=== PATIENT | male | born 1940 | race Caucasian/White ===

== ENCOUNTER 2017-10-31 16:54 | Inpatient (IN) ==
[2017-10-31 17:49] LABS: Basophils % 0.2 %; Eosinophils % 0.4 %; Hematocrit 35.8 % (37.5-50.1); Hemoglobin 11.6 g/dL (12.9-16.9); Immature Granulocytes % 0.4 % (0-4); Lymphocytes # 1.2 K/mcL (0.6-4.6); Lymphocytes % 11.6 %; Mean Corpuscular HGB Conc 32.4 g/dL (31.6-35.5); Mean Corpuscular Hemoglobin 27.9 pg (28.0-33.3); Mean Corpuscular Volume 86.1 fL (83.0-100.0); Mean Platelet Volume 10.2 fL (9.4-12.4); Monocytes # 0.6 K/mcL (0.0-1.3); Monocytes % 5.7 %; Neutrophils # 8.2 K/mcL (1.6-8.9); Platelet Count 332 K/mcL (140-400); Red Blood Count 4.16 M/mcL (4.19-5.50); Red Cell Distribution Width 14.3 % (11.5-14.5); Segmented Neutrophils % 81.7 %
[2017-10-31 17:56] LABS: INR 1.1; Prothrombin Time 12.2 Seconds (9.4-12.1)
[2017-10-31 17:59] LABS: Activated Partial Thrombo Time 27.5 Seconds (26.0-36.0)
[2017-10-31 18:04] LABS: Alanine Aminotransferase 9 Units/L (7-52); Albumin 2.8 g/dL (3.5-5.7); Albumin/Globulin Ratio 0.8 (1.1-2.2); Alkaline Phosphatase 48 Units/L (34-104); Aspartate Amino Transferase 11 Units/L (13-39); BUN/Creatinine Ratio 18 (6-26); Bilirubin,Total 0.5 mg/dL (0.3-1.0); Blood Urea Nitrogen 16 mg/dL (8-23); C-Reactive Protein 126 mg/L (Less than 10); Calcium 8.4 mg/dL (8.6-10.3); Carbon Dioxide 33 mEq/L (23-29); Chloride 97 mEq/L (98-107); Globulin 3.7 g/dL (2.4-3.5); Glucose 222 mg/dL (70-105); Osmolality,Calculated 286 (280-300); Potassium 4.2 mEq/L (3.5-5.1); Sodium 134 mEq/L (136-145); Total Protein 6.5 g/dL (6.4-8.9); eGFR For African Americans > 60 (> 60); eGFR For Non-African Americans > 60 (> 60)
[2017-10-31] MEDS ORDERED: 0.9 % Sodium Chloride 1,000 ML IVC ONE (18:34)
[2017-10-31] MEDS ORDERED: Piperacillin/Tazobactam 3.375 GM in Water for inj. (sterile) 20 ML IVP ONE (18:34)
--- NOTE | 2017-10-31 18:40 | Emergency Department Note ---
Disposition Clinical Impression: Diabetic foot ulcer Qualifiers: Diabetic foot ulcer location: heel Diabetes mellitus type: other specified ( including TANYA) Laterality: left Non-pressure ulcer stage: unspecified non- pressure ulcer stage Qualified Code(s): E13.621 - Other specified diabetes mellitus with foot ulcer Disposition: Still a Patient Condition: Fair Referrals: NONE,PCP [Primary Care Provider] - Saskia Joseph [Family Provider] - Forms: ED Satisfaction Letter Wound/Laceration HPI - General Chief Complaint: ED Wound/Laceration Stated Complaint: large left heel wound Time Seen by Provider: 10/31/17 17:58 Source: patient Mode of arrival: private vehicle Limitations: no limitations Nursing Notes Reviewed: Yes Vital Signs Reviewed: Yes - History of Present Illness HPI Narrative: 76-year-old male history of dementia and diabetes presents for evaluation due to concerns of left foot ulcer. Patient states it has not been there for a long however it is unclear exactly how long. Patient was carried in by his daughter who he has been staying with him recently. The daughter is worried that the patient cannot take care of himself. Patient is not ambulatory on that left foot. Daughter denies any fevers per the patient. Patient denies any complaints. Denies abdominal pain. No chest pain or shortness of breath. Family at bedside stated the patient does not have a living will. - Related Data Previous Rx's Medication Instructions Recorded Aspirin 81 mg PO DAILY #30 tab.chew 07/10/17 Ipratropium/Albuterol Neb [Duoneb] 3 ml IH [id number] PRN #30 inhsol 07/10/17 Lisinopril [Zestril] 5 mg PO DAILY #30 tablet 07/10/17 Metoprolol [Lopressor] 25 mg PO BID #60 tablet 07/10/17 Simvastatin [Zocor] 20 mg PO HS #30 tablet 07/10/17 Allergies Allergy/AdvReac Type Severity Reaction Status Date / Time No Known Allergies Allergy Verified 10/31/17 16:58 All systems ED: reviewed and negative except as stated. Constitutional: Denies: fever Cardiovascular: Denies: chest pain Respiratory: Denies: cough, dyspnea Gastrointestinal: Denies: abdominal pain, nausea, vomiting Past Medical History - Past Medical History Source: patient Medical history: Reports: COPD, dementia, diabetes, hypertension, other Psychiatric history: Reports: no psych history - Social History Smoking Status: Current some day smoker Smokeless Tobacco Status: Yes (Chew) Alcohol use: Reports: none Drug use: Reports: none Physical Exam - General Limitations: no limitations General appearance: alert, in no apparent distress, cachectic - Head Head exam: atraumatic, normocephalic - Eye Eye exam: Present: normal appearance, PERRL, EOMI - ENT ENT exam: normal exam, mucous membranes moist - Neck Neck exam: Present: normal inspection - Chest Chest inspection: Present: normal inspection, symmetric chest wall rise - Respiratory Respiratory exam: Present: other (Diffusely diminished) - Cardiovascular Cardiovascular exam: Present: regular rate, normal rhythm - Abdominal Exam Abdominal exam: Present: soft, Non-Tender - Expanded Lower Extremity Exam Ankle exam: Present: other (She has a foul-smelling purulent drainage on the dorsum of the left ankle. Likely Pseudomonas) - Neurological Exam Neurological exam: Present: alert - Skin Skin exam: Present: warm, dry, intact Course Course Narrative: Patient seen and examined. Patient does have likely Pseudomonas ulcer in the left foot. Social work has been involved and recommends the patient to be placed. Patient likely has osteomyelitis of the foot. Patient will require IV antibiotics and admission likely inpatient podiatry consult. Vital Signs Temperature 98.1 F 10/31/17 16:56 Pulse Rate 100 10/31/17 16:56 Respiratory Rate 20 10/31/17 16:56 Blood Pressure 106/62 10/31/17 16:56 O2 Sat by Pulse Oximetry 94 10/31/17 16:56 Temperature 98.1 F 10/31/17 16:56 Pulse Rate 100 10/31/17 16:56 Respiratory Rate 20 10/31/17 16:56 Blood Pressure 106/62 10/31/17 16:56 O2 Sat by Pulse Oximetry 94 10/31/17 16:56 Oxygen Delivery Oxygen Delivery Room Air Wound/Laceration - MDM Narrative Medical decision making narrative: 76 year old male presents for evaluation of left foot ulcer. Patient presents in the care of the family. Family is concerned the patient cannot take care of himself. Patient does have obvious drainage of the ulcer. Likely osteomyelitis with pseudomonas. Patient started on vancomycin and Zosyn. Patient will be admitted to hospitalist service. At the time of this dictation the patient was signed out tonight provider pending radiology results. Patient denies any pain. Patient did get wound cultures obtained of the left heal ulcer. - Lab Data Lab results reviewed: Yes I reviewed the patient's lab results. Result diagrams: 10/31/17 17:22 10/31/17 17:22 Lab Results 10/31/17 10/31/17 10/31/17 Range/Units 17:22 17:22 17:22 WBC 10.0 (4.3-11.1) K/mcL RBC 4.16 L (4.19-5.50) M/mcL Hgb 11.6 L (12.9-16.9) g/dL Hct 35.8 L (37.5-50.1) % MCV 86.1 (83.0-100.0) fL MCH 27.9 L (28.0-33.3) pg MCHC 32.4 (31.6-35.5) g/dL RDW 14.3 (11.5-14.5) % Plt Count 332 (140-400) K/mcL MPV 10.2 (9.4-12.4) fL Immature Gran % 0.4 (0-4) % Seg Neutrophils % 81.7 % Lymphocytes % 11.6 % Monocytes % 5.7 % Eosinophils % 0.4 % Basophils % 0.2 % Neutrophils # 8.2 (1.6-8.9) K/mcL Lymphocytes # 1.2 (0.6-4.6) K/mcL Monocytes # 0.6 (0.0-1.3) K/mcL Eosinophils # 0.0 (0.0-0.6) K/mcL Basophils # 0.0 (0.0-0.2) K/mcL ESR 57 H (0-10) mm/hr PT 12.2 H (9.4-12.1) Seconds INR 1.1 APTT 27.5 (26.0-36.0) Seconds Sodium (136-145) mEq/L Potassium (3.5-5.1) mEq/L Chloride (98-107) mEq/L Carbon Dioxide (23-29) mEq/L BUN (8-23) mg/dL Creatinine (0.70-1.30) mg/dL Est GFR ( Amer) (> 60) Est GFR (Non-Af Amer) (> 60) BUN/Creatinine Ratio (6-26) Glucose (70-105) mg/dL Calculated Osmolality (280-300) Lactic Acid (0.5-2.2) mmol/L Calcium (8.6-10.3) mg/dL Total Bilirubin (0.3-1.0) mg/dL AST (13-39) Units/L ALT (7-52) Units/L Alkaline Phosphatase (34-104) Units/L C-Reactive Protein (Less than 10) mg/L Serum Total Protein (6.4-8.9) g/dL Albumin (3.5-5.7) g/dL Globulin (2.4-3.5) g/dL Albumin/Globulin Ratio (1.1-2.2) 10/31/17 10/31/17 Range/Units 17:22 17:22 WBC (4.3-11.1) K/mcL RBC (4.19-5.50) M/mcL Hgb (12.9-16.9) g/dL Hct (37.5-50.1) % MCV (83.0-100.0) fL MCH (28.0-33.3) pg MCHC (31.6-35.5) g/dL RDW (11.5-14.5) % Plt Count (140-400) K/mcL MPV (9.4-12.4) fL Immature Gran % (0-4) % Seg Neutrophils % % Lymphocytes % % Monocytes % % Eosinophils % % Basophils % % Neutrophils # (1.6-8.9) K/mcL Lymphocytes # (0.6-4.6) K/mcL Monocytes # (0.0-1.3) K/mcL Eosinophils # (0.0-0.6) K/mcL Basophils # (0.0-0.2) K/mcL ESR (0-10) mm/hr PT (9.4-12.1) Seconds INR APTT (26.0-36.0) Seconds Sodium 134 L (136-145) mEq/L Potassium 4.2 (3.5-5.1) mEq/L Chloride 97 L (98-107) mEq/L Carbon Dioxide 33 H (23-29) mEq/L BUN 16 (8-23) mg/dL Creatinine 0.90 (0.70-1.30) mg/dL Est GFR ( Amer) > 60 (> 60) Est GFR (Non-Af Amer) > 60 (> 60) BUN/Creatinine Ratio 18 (6-26) Glucose 222 H (70-105) mg/dL Calculated Osmolality 286 (280-300) Lactic Acid 1.4 (0.5-2.2) mmol/L Calcium 8.4 L (8.6-10.3) mg/dL Total Bilirubin 0.5 (0.3-1.0) mg/dL AST 11 L (13-39) Units/L ALT 9 (7-52) Units/L Alkaline Phosphatase 48 (34-104) Units/L C-Reactive Protein 126 H (Less than 10) mg/L Serum Total Protein 6.5 (6.4-8.9) g/dL Albumin 2.8 L (3.5-5.7) g/dL Globulin 3.7 H (2.4-3.5) g/dL Albumin/Globulin Ratio 0.8 L (1.1-2.2) S.Pablo.Pauline - Osmany Situation: Demographics Background: Presenting Complaint Assessment: Vital Signs, Course and respsone to treatment, Patient/Family Expectation Recommendation: Barrier(s) to disposition, Recommendation based on pending studies, treatments, or consults S.BNadira Report Given to: Dr. Flynn Ceron Repor Time: 18:46 Attestation Statement - Attestation Attestation: I examined this patient and my medical decision-making was reviewed with the Resident Physician. I agree with the documented findings, disposition and treatment plan as described except to the extent set forth below. Patient to the ED with a heel infection. Daughter states she pulled him out of the deplorable house about a week ago and she has been staying with her. She has been changing the dressing on his foot. On examination he has a large wound to the left heel with purulent drainage. Foul smelling. Plan. Patient' s wound smells of pseudomonas. Culture sent. Antibiotics started. Will admit.
--- NOTE | 2017-10-31 20:44 | Emergency Department Note ---
Disposition Clinical Impression: Diabetic foot ulcer Qualifiers: Diabetic foot ulcer location: heel Diabetes mellitus type: other specified ( including TANYA) Laterality: left Non-pressure ulcer stage: unspecified non- pressure ulcer stage Qualified Code(s): E13.621 - Other specified diabetes mellitus with foot ulcer Acute osteomyelitis of calcaneum Qualifiers: Laterality: left Qualified Code(s): M86.172 - Other acute osteomyelitis, left ankle and foot Disposition: Admitted As Inpatient Condition: Fair General Adult HPI - General Chief complaint: ED Wound/Laceration Stated complaint: large left heel wound Time Seen by Provider: 10/31/17 17:58 Source: patient Mode of arrival: private vehicle Limitations: no limitations - History of Present Illness Pain Scale: 0 - Related Data Home Medications Medication Instructions Recorded Confirmed No Known Home Drugs 10/31/17 10/31/17 Allergies Allergy/AdvReac Type Severity Reaction Status Date / Time No Known Allergies Allergy Verified 10/31/17 16:58 Constitutional: Denies: fever Cardiovascular: Denies: chest pain Respiratory: Denies: cough, dyspnea Gastrointestinal: Denies: abdominal pain, nausea, vomiting Past Medical History - Past Medical History Medical history: Reports: COPD, dementia, diabetes, hypertension, other Psychiatric history: Reports: no psych history - Social History Smoking Status: Current some day smoker Smokeless Tobacco Status: Yes (Chew) Alcohol use: Reports: none Drug use: Reports: none Physical Exam - General Limitations: no limitations General appearance: alert, in no apparent distress, cachectic Course Course Narrative: Patient signout from dayshift team pending imaging and final disposition. I introduced myself to the patient and reviewed his images. He is noted to have osteomyelitis of the left calcaneus. - Consultations Consultation #1: I spoke with the on-call orthopedist Dr. Whitaker. Requests I speak with podiatry given findings of calcaneal osteomyelitis. Consultation #2: I spoke with the on-call straddle buggy operator Dr. crandall. Discussed the patient's history exam imaging and labs. Agrees with IV antibiotics and admission and will see the patient in consultation in the morning. Vital Signs Temperature 98.1 F 10/31/17 16:56 Pulse Rate 100 10/31/17 16:56 Respiratory Rate 20 10/31/17 16:56 Blood Pressure 106/62 10/31/17 16:56 O2 Sat by Pulse Oximetry 94 10/31/17 16:56 Temperature 98.2 F 10/31/17 20:58 Pulse Rate 81 10/31/17 19:53 Respiratory Rate 18 10/31/17 20:58 Blood Pressure 128/71 10/31/17 20:58 O2 Sat by Pulse Oximetry 96 10/31/17 19:53 Oxygen Delivery Oxygen Delivery Room Air Medical Decision Making - MDM Narrative Medical decision making narrative: 76-year-old male signed out from dayshift team pending imaging and labs of a large heel ulcer. X-ray evidence of osteomyelitis. He is currently stable and not septic. Case discussed with podiatry. Patient given broad-spectrum antibiotics. Admitted to the hospitalist service with podiatric consultation. - Lab Data Lab results reviewed: Yes I reviewed the patient's lab results. Result diagrams: 10/31/17 17:22 10/31/17 17:22 Lab Results 10/31/17 10/31/17 10/31/17 Range/Units 17:22 17:22 17:22 WBC 10.0 (4.3-11.1) K/mcL RBC 4.16 L (4.19-5.50) M/mcL Hgb 11.6 L (12.9-16.9) g/dL Hct 35.8 L (37.5-50.1) % MCV 86.1 (83.0-100.0) fL MCH 27.9 L (28.0-33.3) pg MCHC 32.4 (31.6-35.5) g/dL RDW 14.3 (11.5-14.5) % Plt Count 332 (140-400) K/mcL MPV 10.2 (9.4-12.4) fL Immature Gran % 0.4 (0-4) % Seg Neutrophils % 81.7 % Lymphocytes % 11.6 % Monocytes % 5.7 % Eosinophils % 0.4 % Basophils % 0.2 % Neutrophils # 8.2 (1.6-8.9) K/mcL Lymphocytes # 1.2 (0.6-4.6) K/mcL Monocytes # 0.6 (0.0-1.3) K/mcL Eosinophils # 0.0 (0.0-0.6) K/mcL Basophils # 0.0 (0.0-0.2) K/mcL ESR 57 H (0-10) mm/hr PT 12.2 H (9.4-12.1) Seconds INR 1.1 APTT 27.5 (26.0-36.0) Seconds Sodium (136-145) mEq/L Potassium (3.5-5.1) mEq/L Chloride (98-107) mEq/L Carbon Dioxide (23-29) mEq/L BUN (8-23) mg/dL Creatinine (0.70-1.30) mg/dL Est GFR ( Amer) (> 60) Est GFR (Non-Af Amer) (> 60) BUN/Creatinine Ratio (6-26) Glucose (70-105) mg/dL Calculated Osmolality (280-300) Lactic Acid (0.5-2.2) mmol/L Calcium (8.6-10.3) mg/dL Total Bilirubin (0.3-1.0) mg/dL AST (13-39) Units/L ALT (7-52) Units/L Alkaline Phosphatase (34-104) Units/L C-Reactive Protein (Less than 10) mg/L Serum Total Protein (6.4-8.9) g/dL Albumin (3.5-5.7) g/dL Globulin (2.4-3.5) g/dL Albumin/Globulin Ratio (1.1-2.2) 10/31/17 10/31/17 10/31/17 Range/Units 17:22 17:22 18:43 WBC (4.3-11.1) K/mcL RBC (4.19-5.50) M/mcL Hgb (12.9-16.9) g/dL Hct (37.5-50.1) % MCV (83.0-100.0) fL MCH (28.0-33.3) pg MCHC (31.6-35.5) g/dL RDW (11.5-14.5) % Plt Count (140-400) K/mcL MPV (9.4-12.4) fL Immature Gran % (0-4) % Seg Neutrophils % % Lymphocytes % % Monocytes % % Eosinophils % % Basophils % % Neutrophils # (1.6-8.9) K/mcL Lymphocytes # (0.6-4.6) K/mcL Monocytes # (0.0-1.3) K/mcL Eosinophils # (0.0-0.6) K/mcL Basophils # (0.0-0.2) K/mcL ESR (0-10) mm/hr PT (9.4-12.1) Seconds INR APTT (26.0-36.0) Seconds Sodium 134 L (136-145) mEq/L Potassium 4.2 (3.5-5.1) mEq/L Chloride 97 L (98-107) mEq/L Carbon Dioxide 33 H (23-29) mEq/L BUN 16 (8-23) mg/dL Creatinine 0.90 (0.70-1.30) mg/dL Est GFR ( Amer) > 60 (> 60) Est GFR (Non-Af Amer) > 60 (> 60) BUN/Creatinine Ratio 18 (6-26) Glucose 222 H (70-105) mg/dL Calculated Osmolality 286 (280-300) Lactic Acid 1.4 1.2 (0.5-2.2) mmol/L Calcium 8.4 L (8.6-10.3) mg/dL Total Bilirubin 0.5 (0.3-1.0) mg/dL AST 11 L (13-39) Units/L ALT 9 (7-52) Units/L Alkaline Phosphatase 48 (34-104) Units/L C-Reactive Protein 126 H (Less than 10) mg/L Serum Total Protein 6.5 (6.4-8.9) g/dL Albumin 2.8 L (3.5-5.7) g/dL Globulin 3.7 H (2.4-3.5) g/dL Albumin/Globulin Ratio 0.8 L (1.1-2.2) - Radiology Data Radiology results reviewed: Yes I reviewed the patient's radiology results. Chest X-Ray 10/31/17 17:24 IMPRESSION: Right basilar opacity suspicious for pneumonia. Possible small pleural effusion. D/ / De Borden MD / De Borden MD Interpreting Provider: De Borden MD Ankle X-Ray 10/31/17 18:32 IMPRESSION: Erosive/destructive change of the posterior calcaneus consistent with osteomyelitis. D/ / De Borden MD / De Borden MD Interpreting Provider: De Borden MD Osmany - Osmany Situation: Demographics, MOA Background: Presenting Complaint, Relevant PMH, Meds, & Allergies Assessment: Course and respsone to treatment, Exam Concerns, Patient/Family Expectation, Pertinant Lab Results Recommendation: Barrier(s) to disposition, Recommendation based on pending studies, treatments, or consults Osmany Report Given to: Dr. Khushbu Ceron Repor Time: 20:44 Attestation Statement - Attestation Attestation: I, Vaibhav Viramontes MD, personally evaluated this patient and discussed their management with the resident physician. I reviewed the resident's note and agree with the documented findings, medical decision making, and plan of care. This patient was signed out at shift change from Dr. Montejo and Dr. Stevenson. Please refer to their notes for complete details of history and physical examination. Patient is awaiting test results and hospital admission. Patient presented with a large infected ulcer to the posterior left heel. Patient unsure when the ulcer started. On examination patient is a well-developed thin elderly male in no acute distress. He is alert. There is no cyanosis or diaphoresis. The left heel wound is bandaged but has a very strong foul odor of tissue. Labs reviewed. X-ray shows osteomyelitis of the calcaneus. Chest x-ray shows r ight basilar opacity suspicious for pneumonia. Possible small pleural effusion. Dr. Pruett discussed with the straddle buggy operator, Dr. Crandall. The hospitalist, Dr. Ríos , was consulted and accepted admission of the patient.
--- NOTE | 2017-10-31 22:23 | Internal Med History&Physical ---
<Sacha Vale - Last Filed: 10/31/17 22:19> Date of Encounter: 10/31/17 Time of Encounter: 22:19 Assessment and Plan (1) Acute osteomyelitis of calcaneum Current visit: Yes Status: Acute Cellulitis and osteomyelitis of left calcansum. Foul smelling. Likely pseudomonas. Podiatry consulted. Empiric antibiotics: Vancomycin (started 10/31), Zosyn (started 10/31). Cultures pending: Blood x1, wound x1. Qualifiers: Laterality: left Qualified Code(s): M86.172 - Other acute osteomyelitis, left ankle and foot (2) Hyperglycemia Current visit: Yes Status: Acute Reportedly diabetic however denies any daily medications. NPO for now pending eval by Dr. Cortes. Low dose SSI. (3) Self-care deficit in patient living alone Current visit: Yes Status: Acute Reportedly lives alone in poor conditions. Reportedly has dementia and diabetes however takes no daily medications. nutritional services cook consulted. (4) Protein calorie malnutrition Current visit: Yes Status: Acute Patient denies missing meals or recent illness. Likely secondary to difficulty in caring for self. Qualifiers: Protein-calorie malnutrition severity: unspecified severity Qualified Code( s): E46 - Unspecified protein-calorie malnutrition (5) DVT prophylaxis Current visit: Yes Status: Acute Intermittent compression pending podiatry eval and potential surgical plan. Internal Medicine - H&P: HPI Admitted From: Home History of present illness: HPI from patient and medical record. No family present at bedside. Mr. Crow is a 76 year old male presents from home admitted from the ED for continued evaluation of left heel wound. He is uncertain of how long the wound has been there or how it began. He denies pain and has no complaints. Patient has a history of dementia and diabetes. He denies any daily medications or medical problems. Patient lives at home alone and denies any pain however he is non-ambulatory on his left foot. He arrived to the ER, however with his daughter who has recently been staying with him and is worried the patient may not be able to care for himself. Habits: Denies EtOH, smoking, illicit Past Med Surg Social Fam HX - Past Medical History Medical history: COPD, dementia, diabetes, hypertension, other Psychiatric history: no psych history - Social History Smoking Status: Current some day smoker Smokeless Tobacco Status: Yes (Chew) Alcohol use: none Drug use: none - Family History Father Living Status: Hx Family Endocrine Disorder: Yes (type 2 diabetes) Internal Medicine - H&P: Meds No Known Home Drugs 10/31/17 [History] 3 Allergy/AdvReac Type Severity Reaction Status Date / Time No Known Allergies Allergy Verified 10/31/17 16:58 All Systems PM: A 10-system review of systems was performed and is negative for pertinent findings except as documented above in the HPI. - Constitutional Constitutional: no chills, no fatigue, no fever(s), no falls, no lethargy - Cardiovascular Cardiovascular ROS IM: no chest pain, no dyspnea, no edema, no palpitations - Respiratory Respiratory: no cough, no dyspnea, no wheezing - Gastrointestinal Gastrointestinal: no abdominal pain, no change in bowel habits, no hematochezia , no melena, no nausea, no vomiting - Genitourinary Genitourinary ROS male: no difficulty urinating, no dysuria - Musculoskeletal Musculoskeletal ROS IM: no arthralgias, no joint swelling, no muscle weakness, no myalgias - Integumentary Integumentary IM: erythema, new lesions, non-healing lesions, skin ulcer, no unusual bruising, no jaundice - Neurological Neurological ROS: abnormal gait, no focal weakness, no frequent falls, no numbness - Constitutional Vitals: Temp Pulse Resp BP Pulse Ox 98.4 F 82 15 99/68 94 10/31/17 21:41 10/31/17 21:41 10/31/17 21:41 10/31/17 21:41 10/31/17 21:41 General appearance: Present: cooperative, A&O X 3, pleasant, no acute distress, underweight, answers questions appropriately - Head Head exam: Present: atraumatic, normal inspection, normocephalic - Eye Eye exam: Present: EOMI, normal appearance, PERRL, sclera anicteric - Respiratory Respiratory exam: Present: CTAB. Absent: accessory muscle use, prolonged expiratory phase, rales, rhonchi, wheezes - Cardiovascular Cardiovascular exam: Present: RRR. Absent: clicks, diastolic murmur, gallop, rubs, systolic murmur - GI/Abdominal GI/Abdominal exam: Present: normal bowel sounds, soft Additional comments: scaphoid - Expanded Lower Extremities Exam Knee exam: Present: full ROM, normal inspection. Absent: deformity, ecchymosis Lower Leg exam: Present: normal inspection. Absent: tenderness Ankle exam: Present: erythema, full ROM. Absent: normal inspection, tenderness Foot/Toe exam: Present: calcaneal tenderness (Dorsum of left calcandus has foul smelling purulant discharge with surrounding erythema.), erythema Neuro vascular tendon exam: Absent: sensory deficit - Neurological Exam Neurological exam: Present: alert, oriented X3. Absent: no focal deficits, speech deficit Internal Med - H&P Results - Labs CBC & Chem 7: 10/31/17 17:22 10/31/17 17:22 - Diagnostic Studies Other Images Additional comments: Chest X-Ray 10/31/17 17:24 IMPRESSION: Right basilar opacity suspicious for pneumonia. Possible small pleural effusion. D/ / De Borden MD / De Borden MD Interpreting Provider: De Borden MD Ankle X-Ray 10/31/17 18:32 IMPRESSION: Erosive/destructive change of the posterior calcaneus consistent with osteomyelitis. D/ / De Borden MD / De Borden MD Interpreting Provider: De Borden MD - VTE Documentation of Mechanical Device: Intermittent pneumatic compression device <Jaziel Ríos P - Last Filed: 11/01/17 04:55> Date of Encounter: 11/01/17 Internal Medicine - H&P: HPI History of present illness: Mr. Crow is a 76 year old male All Systems PM: A 10-system review of systems was performed and is negative for pertinent findings except as documented above in the HPI. - Constitutional Vitals: Temp Pulse Resp BP Pulse Ox 98.0 F 80 15 126/74 96 11/01/17 03:26 11/01/17 03:26 11/01/17 03:26 11/01/17 03:26 11/01/17 03:26 Internal Med - H&P Results - Labs CBC & Chem 7: 10/31/17 17:22 10/31/17 17:22 - Attending Attestation I examined this patient and my medical decision-making was reviewed with the Resident Physician. I agree with the documented findings, disposition and treatment plan as described except to the extent set forth below. patient seen and examined. chart reviewed. agree with resident physician assessment and plan
[2017-10-31] MEDS ORDERED: *HR* OxyCODONE Immed Rel 5 MG TABLET PO PRN (22:39)
[2017-10-31] MEDS ORDERED: Naloxone 0.4 MG/ML INJ IVP PRN (22:39)
[2017-10-31] MEDS ORDERED: traMADol 50 MG TABLET PO PRN (22:39)
[2017-10-31] MEDS ORDERED: Ibuprofen 400 MG TABLET PO PRN (22:39)
[2017-10-31] MEDS ORDERED: D5% in Water 1,000 ML IVC PRN (22:42)
[2017-10-31] MEDS ORDERED: Dextrose Gel 15 GM/37.5 ML TUBE PO PRN ×2 (22:42)
[2017-10-31] MEDS ORDERED: *HR* Dextrose 50 % in Water (Syg) 50 ML SYRINGE IVP PRN (22:42)
[2017-11-01] MEDS: 0.9 % Sodium Chloride w KCl 20 MEQ/1,000 ML MLS IVC SCH ×3 (00:11→09:24)
[2017-11-01] MEDS: Insulin LISPRO 300 UNITS/3 ML VIAL SQ SCH ×4 (00:15→18:06)
[2017-11-01 05:43] LABS: Hematocrit 29.5 % (37.5-50.1); Mean Corpuscular HGB Conc 32.5 g/dL (31.6-35.5); Mean Corpuscular Hemoglobin 28.1 pg (28.0-33.3); Mean Corpuscular Volume 86.3 fL (83.0-100.0); Mean Platelet Volume 10.1 fL (9.4-12.4); Platelet Count 282 K/mcL (140-400); Red Blood Count 3.42 M/mcL (4.19-5.50); Red Cell Distribution Width 14.2 % (11.5-14.5)
[2017-11-01 06:05] LABS: Hemoglobin 9.6 g/dL (12.9-16.9)
[2017-11-01 06:14] LABS: BUN/Creatinine Ratio 15 (6-26); Blood Urea Nitrogen 11 mg/dL (8-23); Calcium 7.7 mg/dL (8.6-10.3); Carbon Dioxide 29 mEq/L (23-29); Chloride 105 mEq/L (98-107); Glucose 89 mg/dL (70-105); Magnesium 2.2 mg/dL (1.6-2.6); Osmolality,Calculated 285 (280-300); Phosphorous 2.6 mg/dL (2.7-4.5); Potassium 3.9 mEq/L (3.5-5.1); Sodium 138 mEq/L (136-145); eGFR For African Americans > 60 (> 60); eGFR For Non-African Americans > 60 (> 60)
--- NOTE | 2017-11-01 14:32 | Internal Med Progress Note ---
Date of Encounter: 11/01/17 Time of Encounter: 14:30 - Assessment and plan (1) Hypertension Current Visit: No Status: Chronic Assessment and plan: Chronic and well controlled Qualifiers: Hypertension type: essential hypertension Qualified Code(s): I10 - Essential (primary) hypertension (2) Diabetes Current Visit: No Status: Chronic Assessment and plan: Chronic will continue on home medication and sliding scale 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 mellitus complication status: with unspecified complications Diabetes mellitus salvage determiner insulin use: without salvage determiner use Qualified Code(s): E11.8 - Type 2 diabetes mellitus with unspecified complications (3) Dementia Current Visit: No Status: Chronic Qualifiers: Dementia type: Alzheimer's disease Alzheimer's disease onset: unspecified onset Dementia behavioral disturbance: without behavioral disturbance Qualified Code(s): G30.9 - Alzheimer's disease, unspecified; F02.80 - Dementia in other diseases classified elsewhere without behavioral disturbance; F02.80 - Dementia in other diseases classified elsewhere without behavioral disturbance; F02.80 - Dementia in other diseases classified elsewhere without behavioral disturbance (4) Acute osteomyelitis of calcaneum Current Visit: Yes Status: Acute Assessment and plan: Patient started on vancomycin and Zosyn Qualifiers: Laterality: left Qualified Code(s): M86.172 - Other acute osteomyelitis, left ankle and foot - Subjective Interval history: Patient with history of diabetes, dementia, patient presented with left heel wound x-ray shows Tenderness osteomyelitis of the left foot patient placed on vancomycin and Zosyn today patient said he is doing fine no pain - Constitutional Vitals: Temp Pulse Resp BP Pulse Ox 98.1 F 82 16 132/84 97 11/01/17 10:42 11/01/17 10:42 11/01/17 10:42 11/01/17 10:42 11/01/17 10:42 General appearance: Present: cooperative, A&O X 3, pleasant, no acute distress, underweight, answers questions appropriately - Eye Eye exam: Present: PERRL, conjuntiva pink, sclera anicteric Pupils: Present: PERRL - Neck Neck exam general surgery: Present: supple, trachea midline. Absent: lymphadenopathy - Respiratory Respiratory exam: Present: CTAB. Absent: accessory muscle use, rales, rhonchi, wheezes - Cardiovascular Cardiovascular exam: Present: RRR, +S1, +S2. Absent: diastolic murmur, gallop, rubs, systolic murmur - GI/Abdominal GI/Abdominal exam: Present: normal bowel sounds, soft, no peritoneal signs. Absent: distended, tenderness - Extremities Exam Extremities exam: Present: tenderness Internal Medicine: Result - Labs CBC & Chem 7: 11/01/17 04:58 11/01/17 04:58 Labs: Short CBC 11/01/17 Range/Units 04:58 WBC 7.3 (4.3-11.1) K/mcL Hgb 9.6 L D (12.9-16.9) g/dL Hct 29.5 L (37.5-50.1) % Plt Count 282 (140-400) K/mcL BMP 11/01/17 04:58 Sodium 138 Potassium 3.9 Chloride 105 Carbon Dioxide 29 BUN 11 Creatinine 0.75 Glucose 89 Calcium 7.7 L - ABG Interpretation ABG results: PT/INR, D-dimer PT 12.2 Seconds (9.4-12.1) H 10/31/17 17:22 - VTE Documentation of Mechanical Device: Intermittent pneumatic compression device Consult Discharge Plan - Plan Referrals: NONE,PCP [Primary Care Provider] - Saskia Joseph [Family Provider] -
--- NOTE | 2017-11-01 17:56 | Podiatry Consult Note ---
Date of Encounter: 11/01/17 Time of Encounter: 17:00 Assessment and Plan (1) Acute osteomyelitis of calcaneum Current visit: Yes Status: Acute Assessment complete Will plan I&D of left achilles tomorrow per - Patient is a poor historian and responds minimally. Will need to contact POA for consent NPO after midnight Adaptic 4x4 and kerlix applied at bedside Change if needed for strike through drainage Continue antibiotic therapy Monitor renal function. Patient has been started on empiric antibiotics per internal medicine- wound cultures pending Continue to monitor renal function and tight control of glucose Ankle X-Ray 10/31/17 18:32 IMPRESSION: Erosive/destructive change of the posterior calcaneus consistent with osteomyelitis. D/ / eD Borden MD / De Borden MD Interpreting Provider: De Borden MD Qualifiers: Laterality: left Qualified Code(s): M86.172 - Other acute osteomyelitis, left ankle and foot History of Present Illness HPI: Mr. Crow is a 76 year old male who podiatry has been consulted on regarding a left heel wound. Patient has a medical history significant for DM and dementia. Patient exhibits minimal conversation. States wound has been there "forever" denies any pain. There is no family at bedside and therefor no other history regarding wound. There is a dry sterile dressing on wound upon entering room however noted foul odor. Patient had imaging on admission which suggests osteo of the left calcaneus. ESR 57 CRP 126 afebrile WBC 10.0 on admission Past Med Surg Social Fam HX - Past Medical History Medical history: COPD, dementia, diabetes, hypertension, other Psychiatric history: no psych history - Social History Smoking Status: Current some day smoker Smokeless Tobacco Status: Yes (Chew) Alcohol use: none Drug use: none - Family History Father Living Status: Hx Family Endocrine Disorder: Yes (type 2 diabetes) Medications and Allergies No Known Home Drugs 10/31/17 [History] 3 Allergy/AdvReac Type Severity Reaction Status Date / Time No Known Allergies Allergy Verified 10/31/17 16:58 All Systems Reviewed: A 10-system review of systems was performed and is negative for pertinent findings except as documented above in the HPI. Physical Exam - Constitutional Vitals: Temp Pulse Resp BP Pulse Ox 98.1 F 82 16 132/84 97 11/01/17 10:42 11/01/17 10:42 11/01/17 10:42 11/01/17 10:42 11/01/17 10:42 Exam: Awake, alert at times and drifts back to sleep, minimal coherent conversation LLE assessed at bedside Pulses DP/PT faint, cap refill <3 seconds, warm toes to tibia. Edema 1+/4 There is erythema and edema consistent with cellulitis of the extremity surrounding wound of calcaneus and extending along the posterior aspect of the calf which stops about midway up calf There are several small wounds appearing to the posterior calcaneus/ achilles insertion area which all tunnel and connect. medial calcaneus there are 4 small wounds each measuring approx 0.5cmx0.5cm with 0.4cm depth and exposure of underlying structures. There is an additional wound of the lateral calcaneus 0.4x0.4x0.3 which appears to have exposure of the achilles tension out of the wound. There is a large amount of purulent brown/yellow drainage and foul odor arising from the wound. Warmth and edema surround wound. Wound noted with exposure of achilles tendon tunnels approx 3.5 cm up the posterior aspect of extremity. Patient denies any pain with inspection so profound neuropathy is suspected however due to patients mental state it is hard to determine. Results - Labs Result Diagrams: 11/01/17 04:58 11/01/17 04:58 Labs: Abnormal lab results RBC 3.42 M/mcL (4.19-5.50) L 11/01/17 04:58 Hgb 9.6 g/dL (12.9-16.9) L D 11/01/17 04:58 Hct 29.5 % (37.5-50.1) L 11/01/17 04:58 ESR 57 mm/hr (0-10) H 10/31/17 17:22 PT 12.2 Seconds (9.4-12.1) H 10/31/17 17:22 Calcium 7.7 mg/dL (8.6-10.3) L 11/01/17 04:58 Phosphorus 2.6 mg/dL (2.7-4.5) L 11/01/17 04:58 AST 11 Units/L (13-39) L 10/31/17 17:22 C-Reactive Protein 126 mg/L (Less than 10) H 10/31/17 17:22 Albumin 2.8 g/dL (3.5-5.7) L 10/31/17 17:22 Globulin 3.7 g/dL (2.4-3.5) H 10/31/17 17:22 Albumin/Globulin Ratio 0.8 (1.1-2.2) L 10/31/17 17:22 H & H 11/01/17 Range/Units 04:58 Hgb 9.6 L D (12.9-16.9) g/dL Hct 29.5 L (37.5-50.1) % All other labs normal. Consult Discharge Plan - Plan Referrals: NONE,PCP [Primary Care Provider] - Saskia Joseph [Family Provider] -
[2017-11-02] MEDS: Insulin LISPRO 300 UNITS/3 ML VIAL SQ SCH ×4 (00:27→22:14)
--- NOTE | 2017-11-02 07:07 | Anesthesia Evaluation PreOp ---
Date of Encounter: 11/02/17 Time of Encounter: 07:05 - Past History Planned Operation: I and D left leg Cardiac History: HTN, Other (Pt has dementia and does not answer questions, chart review and interview of pt daughter for information) Pulmonary History: Former smoker, COPD MANUFA[employer]ING [employer] History: Other (dementia) Other Medical History: Diabetes Type II Anesthesia History: No Prior Anesthetic Complications, Past Anesthesia (hand) Alcohol Use: none Drug use: none Medications and Allergies No Known Home Drugs 10/31/17 [History] 3 Allergy/AdvReac Type Severity Reaction Status Date / Time No Known Allergies Allergy Verified 10/31/17 16:58 - Meds/Allergy Pre-op Review Medications Reviewed: Yes Allergies Reviewed: Yes Beta Blockers on Current Med List: No Anesthesia Results - Labs 11/01/17 04:58 11/01/17 04:58 - Imaging EKG: report reviewed (Interpretive Statements SINUS RHYTHM WITH FIRST DEGREE AV BLOCK WITH OCCASIONAL SUPRAVENTRICULAR PREMATURE COMPLEXES Electronically Signed On 07-07-2017 18:19:34 EDT by Antonio Hancock MD) Anesthesia Exam Vital Signs/O2 Sat, Most Current Temp Pulse Resp BP Pulse Ox 98.2 F 82 15 144/78 94 11/02/17 04:45 11/02/17 04:45 11/02/17 04:45 11/02/17 04:45 11/02/17 04:45 Height: 1.88m Weight: 81kg NPO (# of Hours): >8 - HEENT Pupil (Motor): Pupils equal, EOMI Mallampati: II Oral Opening: Greater than 3 - MANUFACTURING [employer]IT[employer] LOC: Oriented MANUFACTURING [employer]IT[employer] Motor: Normal RUE, Normal LUE, Normal RLE, Normal LLE, Normal Face MANUFACTURING [employer]ITLES Sensory: Normal: RUE, LUE, RLE, LLE, Face - Cardiac Rhythm: Regular - Pulmonary Breath Sounds: bilateral Clear Respiratory Effort: Symmetrical Anesthesia Assess/Plan ASA Score: 3 (COPD, DM, dementia) Modified Lalo Scale for Level of Consciousness: Cooperative, oriented, and tranquil Anesthetic Plan: General (r/b/a discussed, questions answered, consent obtained from Magalie Crow, pt daughter) Monitoring Plan: Standard Monitors Recovery Plan: PACU
[2017-11-02] MEDS ORDERED: Lidocaine -MPF 2% 2 ML VIAL ONE (07:19)
[2017-11-02] MEDS ORDERED: *HR* Propofol 200 MG/20 ML VIAL IVP ONE (07:19)
[2017-11-02] MEDS ORDERED: *HR* FentaNYL (PF) 100 MCG/2 ML VIAL ONE (07:19)
[2017-11-02] MEDS ORDERED: *HR* Rocuronium Bromide 50 MG/5 ML VIAL ONE (07:19)
[2017-11-02] MEDS ORDERED: *HR* OxyCODONE Immed Rel 5 MG TABLET PO PRN ×2 (07:24→11:33)
[2017-11-02] MEDS ORDERED: Ondansetron 4 MG/2 ML VIAL IVP ONE ×2 (07:24→11:33)
[2017-11-02] MEDS ORDERED: Ringers Solution, Lactated 1,000 ML IVC SCH ×2 (07:30→11:33)
[2017-11-02] MEDS ORDERED: Lidocaine -MPF 4% 5 ML AMPUL ONE (07:31)
[2017-11-02] MEDS ORDERED: Albuterol 2.5 MG/3 ML NEBULIZER ONE (08:18)
[2017-11-02] MEDS ORDERED: Albuterol 2.5 MG/3 ML NEBULIZER IH ONE (08:24)
[2017-11-02] MEDS ORDERED: Bupivacaine/Clonidine Syringe 1 EACH SYRINGE ONE (08:45)
--- NOTE | 2017-11-02 08:56 | Podiatry Progress Note ---
Date of Encounter: 11/02/17 Time of Encounter: 08:53 - Assessment and Plan (1) Diabetic foot ulcer Current Visit: Yes Status: Acute The patient was instructed of the surgical procedure. The patient seems to be significantly demented and unable to understand the procedure that needs to be performed. The daughter Magalie was instructed that the procedure needs to be performed. The daughter agreed to proceed with the surgical plan. The surgical plan is to perform an incision and drainage with possible resection of Achilles tendon of the left lower extremity.Patient/daughter was informed of the risks and complications of surgery. These may include but are not limited to the following; nerve damage, numbness, tingling, RSD/CRPS, loss of motor function, loss of toe, loss of limb, loss of life, ischemia, wound healing issues, infection, scarring, keloid formation, continued pain, arthritis, non- union, mal-union, prominent hardware, displaced hardware, reaction to hardware, the need to remove hardware, bruising, continued limp, the need for future surgery, over correction, under correction, chronic swelling, the need for physical therapy, stiffness of joints, ulceration, slow healing, wound dehiscence, reaction to implant, reaction to sutures. The patient/daughter was informed of the possible conservative treatments available which may include but are not limited to the following: Orthotics, bracing, non-weight bearing, physical therapy, padding, taping, steroid injections, NSAIDS, casting. The patient/daughter was given the option to seek a second opinion. It was explained that surgery is an art and not an exact science therefore results cannot be guaranteed. All the patients/daughters questions and concerns were addressed. Patient agrees to have the surgery despite the possible risks and complications. Absolutely no guarantees were given or implied. 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 Spoke with daughter who states that she cares for him. Objective - Vital Signs Vital Signs: Vital Signs Temp Pulse Resp BP Pulse Ox 11/02/17 08:07 79 16 134/69 96 11/02/17 04:45 98.2 F 82 15 144/78 94 11/01/17 23:52 98.2 F 78 15 130/75 95 11/01/17 20:14 98.4 F 81 15 133/74 95 11/01/17 10:42 98.1 F 82 16 132/84 97 Intake and Output 11/01/17 11/02/17 11/02/17 23:59 07:59 15:59 Intake Total 700 / 700 0 / 0 Output Total 0 / 0 Balance 700 / 700 0 / 0 Intake: IV Fluids 700 / 700 KCl 20 mEq in 0.9% Sodium 700 / 700 Chloride 20 meq In 1,000 ml @ 125 mls/hr IVC .Q8H [facility] Rx#: [id number] Oral 0 / 0 0 / 0 Output: Urine 0 / 0 Other: Meal NPO Percent of Meal Consumed 0% # Urine Diapers 1 1 Blood Glucose* 84 91 - Exam Exam: Left heel ulcerations noted with prurulence and tracking up the achilles tendon. Erythema and edema noted. Pulses faintly palpable. Sensation is significantly decreased but it is difficult to determine due to inaccurate responses. - Lab Result Diagrams: 11/01/17 04:58 11/01/17 04:58 Labs: Abnormal lab results RBC 3.42 M/mcL (4.19-5.50) L 11/01/17 04:58 Hgb 9.6 g/dL (12.9-16.9) L D 11/01/17 04:58 Hct 29.5 % (37.5-50.1) L 11/01/17 04:58 ESR 57 mm/hr (0-10) H 10/31/17 17:22 PT 12.2 Seconds (9.4-12.1) H 10/31/17 17:22 Calcium 7.7 mg/dL (8.6-10.3) L 11/01/17 04:58 Phosphorus 2.6 mg/dL (2.7-4.5) L 11/01/17 04:58 AST 11 Units/L (13-39) L 10/31/17 17:22 C-Reactive Protein 126 mg/L (Less than 10) H 10/31/17 17:22 Albumin 2.8 g/dL (3.5-5.7) L 10/31/17 17:22 Globulin 3.7 g/dL (2.4-3.5) H 10/31/17 17:22 Albumin/Globulin Ratio 0.8 (1.1-2.2) L 10/31/17 17:22 - VTE Documentation of Mechanical Device: Intermittent pneumatic compression device Consult Discharge Plan - Plan Referrals: NONE,PCP [Primary Care Provider] - Saskia Joseph [Family Provider] -
[2017-11-02] MEDS ORDERED: *HR* PHENYLEPHRINE 1,000 MCG/10 ML SYRINGE IVP ONE (09:13)
[2017-11-02] MEDS ORDERED: EPHEDrine 50 MG/ML VIAL ONE (09:21)
[2017-11-02] MEDS ORDERED: Dexamethasone 4 MG/ML VIAL ONE (09:34)
[2017-11-02] MEDS ORDERED: Ondansetron 4 MG/2 ML VIAL ONE (09:34)
[2017-11-02] MEDS ORDERED: Neostigmine Methylsulfate 3 MG/3 ML SYRINGE ONE (09:41)
--- NOTE | 2017-11-02 10:58 | Anesthesia Evaluation Post Op ---
Date of Encounter: 11/02/17 Time of Encounter: 10:57 - Vital Signs Vital Signs: Vital Signs/O2 Sat, Most Current Temp Pulse Resp BP Pulse Ox 97.0 F L 79 16 94/57 100 11/02/17 10:27 11/02/17 10:47 11/02/17 10:47 11/02/17 10:47 11/02/17 10:47 - Lungs Lungs: Clear Ascult./Percussion - Airway Airway: Non-obstructed - Cardiovascular Regular Rate - Mental Status Mental Status: Baseline Status (states name and birthday) - Pain Pain Scale: 0 Pain Scale used: Numeric (1 - 10) - Nausea Vomiting Nausea Vomiting: Not Present - Hydration Hydration: NPO - Discharge PostOp Status: Transfer Patient to floor Attestation: I have assessed this patient and find they meet discharge criteria.
--- NOTE | 2017-11-02 11:20 | Operative Note ---
Date of procedure: 11/02/17 Pre-op diagnosis: Infection left calcaneus and Achilles tendon with ulceration Post-op diagnosis: same Procedure: Incision and drainage left leg. Release of Achilles tendon/debridement of Achilles tendon. Biopsy of Achilles tendon. Biopsy of calcaneus. Debridement of ulcerations left heel. Anesthesia: GETA Surgeon: Henrry Cortes Was there an personal banking assistant present: No Estimated blood loss (cc): 30 Specimen: Calcaneus bone, Achilles tendon, bone culture calcaneus, wound culture. Condition: stable Disposition: PACU Procedure in Detail: The patient was administered IV antibiotics. The patient was transported to the operative room and placed on operating table in the prone position. Following anesthesia the extremity was scrubbed prepped and draped in the usual aseptic fashion. A timeout was performed. The lower extremity was raised to 60 degrees for hemostasis and exsanguinated utilizing an Esmarch bandage. The pneumatic tourniquet was inflated. The leg was lowered to the table. An incision was made and deepened through subcutaneous tissue with care taken to identify and retract all vital neurovascular structures. The 3 ulcerations on the back of the left calcaneus were inspected and an incision and drainage was performed along the ulcerations connecting them and extending proximally along the Achilles tendon for further inspection of the infection. Once the incision and drainage was performed the Achilles tendon was inspected. The Achilles tendon was released at the infection site and was noted to be significantly infected with purulence extending through the entire tendon. The tendon was inspected proximally and an incision was made across the tendon excising the distal portion of the tendon. The distal portion of the tendon was sent to pathology and the wounds were cultured. After the tendon was released and adequate portions of tendon were excised from both the calcaneus and the proximal aspect of the tendon the attention was then directed to the ulceration sites. Circumferential incisions were made around the ulceration sites to attain healthy viable bleeding tissue to aid in closure. Debridement of the ulceration sites was performed utilizing the misonix debrider. The tissue debrided consisted of epidermis, dermis, subcutaneous, tendon, fascia, bone. The calcaneus was inspected for any signs of osteomyelitis. The purulence was noted to be in contact with the bone and high suspicion for osteomyelitis is present but the bone was not noted to be significantly crumbly or showing other signs or physical changes to the bone indicating infection. A small portion of the calcaneus was inspected and biopsied. Cultures will be obtained as well as pathologic analysis of the calcaneus bone. There were no Achilles attachments at the insertion site of the Achilles tendon on the calcaneus bone due to the infection and necrotic tissue being debrided. The decision was made to avoid any surgical intervention reattaching the Achilles to the calcaneus and later surgical intervention may be considered after the bacteria is no longer present and we have a clean biopsy of bone. The incision site was irrigated with copious amounts of normal saline and loosely closed with 3-0 nylon at the distal incision/ulceration sites and packing was placed through the proximal most opening.. A dry sterile dressing was applied. The pneumatic tourniquet was deflated and a hyperemic response was noted to all digits. The patient tolerated the procedure and anesthesia well and was transported to the recovery room with vital signs stable and vascular status intact to both feet. The patient will be readmitted to the floor per anesthesia. The patient will remain nonweightbearing. The site will be repacked multiple times a day. After a few days we may consider utilizing a wound VAC to aid in healing. Psychological evaluation of the patient may be necessary to determine the best course of action. The patient will likely need long-term wound care until the site heals. The patient will need to improve his diet or I have concerns that this site may not heal.
[2017-11-02] MEDS ORDERED: Insulin LISPRO 300 UNITS/3 ML VIAL SQ SCH ×2 (11:30→21:00)
[2017-11-02] MEDS ORDERED: Dextrose Gel 15 GM/37.5 ML TUBE PO PRN ×2 (11:33)
[2017-11-02] MEDS ORDERED: Naloxone 0.4 MG/ML INJ IVP PRN (11:33)
[2017-11-02] MEDS ORDERED: *HR* Dextrose 50 % in Water (Syg) 50 ML SYRINGE IVP PRN (11:33)
[2017-11-02] MEDS ORDERED: traMADol 50 MG TABLET PO PRN (11:33)
[2017-11-02] MEDS ORDERED: D5% in Water 1,000 ML IVC PRN (11:33)
--- NOTE | 2017-11-02 11:56 | Internal Med Progress Note ---
Date of Encounter: 11/02/17 Time of Encounter: 11:54 - Assessment and plan (1) Hypertension Current Visit: No Status: Chronic Assessment and plan: Chronic and well-controlled Qualifiers: Hypertension type: essential hypertension Qualified Code(s): I10 - Essential (primary) hypertension (2) Diabetes Current Visit: No Status: Chronic Assessment and plan: Chronic continue sliding scale 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 mellitus complication status: with unspecified complications Diabetes mellitus termite exterminator helper insulin use: without termite exterminator helper use Qualified Code(s): E11.8 - Type 2 diabetes mellitus with unspecified complications (3) Dementia Current Visit: No Status: Chronic Assessment and plan: Chronic has underlying dementia Qualifiers: Dementia type: Alzheimer's disease Alzheimer's disease onset: unspecified onset Dementia behavioral disturbance: without behavioral disturbance Qualified Code(s): G30.9 - Alzheimer's disease, unspecified; F02.80 - Dementia in other diseases classified elsewhere without behavioral disturbance; F02.80 - Dementia in other diseases classified elsewhere without behavioral disturbance; F02.80 - Dementia in other diseases classified elsewhere without behavioral disturbance (4) Acute osteomyelitis of calcaneum Current Visit: Yes Status: Acute Assessment and plan: Samra stable recovery well Qualifiers: Laterality: left Qualified Code(s): M86.172 - Other acute osteomyelitis, left ankle and foot - Subjective Interval history: Patient with history of diabetes, dementia, patient presented with left heel wound x-ray shows Tenderness osteomyelitis of the left foot patient placed on vancomycin and Zosyn today patient said he is doing fine no pain Patient returned from surgery please see Portier checks subsequent note for detail is awake and ALERT daughter is in the room - Constitutional Vitals: Temp Pulse Resp BP Pulse Ox 97.7 F 69 16 89/59 100 11/02/17 10:57 11/02/17 10:57 11/02/17 10:57 11/02/17 10:57 11/02/17 10:57 General appearance: Present: cooperative, A&O X 3, pleasant, no acute distress, underweight, answers questions appropriately - Eye Eye exam: Present: PERRL, conjuntiva pink, sclera anicteric Pupils: Present: PERRL - Neck Neck exam general surgery: Present: supple, trachea midline. Absent: lymphadenopathy - Respiratory Respiratory exam: Present: CTAB. Absent: accessory muscle use, rales, rhonchi, wheezes - Cardiovascular Cardiovascular exam: Present: RRR, +S1, +S2. Absent: diastolic murmur, gallop, rubs, systolic murmur - GI/Abdominal GI/Abdominal exam: Present: normal bowel sounds, soft, no peritoneal signs. Absent: distended, tenderness Internal Medicine: Result - Labs CBC & Chem 7: 11/01/17 04:58 11/01/17 04:58 - ABG Interpretation ABG results: PT/INR, D-dimer PT 12.2 Seconds (9.4-12.1) H 10/31/17 17:22 - VTE Documentation of Mechanical Device: Intermittent pneumatic compression device Consult Discharge Plan - Plan Referrals: NONE,PCP [Primary Care Provider] - Saskia oJseph [Family Provider] -
[2017-11-02] MEDS: 0.9 % Sodium Chloride 1,000 ML IVC SCH (14:13)
[2017-11-02] MEDS: Ascorbic Acid 500 MG TABLET PO SCH (22:13)
[2017-11-03] MEDS: Zinc Sulfate 220 MG CAPSULE PO SCH (08:34)
[2017-11-03] MEDS: Multivit/Ca/Min/Fe/FA 1 TAB TABLET PO SCH (08:34)
[2017-11-03] MEDS: Ascorbic Acid 500 MG TABLET PO SCH ×2 (08:34→20:43)
[2017-11-03] MEDS: Insulin LISPRO 300 UNITS/3 ML VIAL SQ SCH ×4 (08:34→20:43)
[2017-11-03] MEDS: 0.9 % Sodium Chloride 1,000 ML IVC SCH (12:13)
--- NOTE | 2017-11-03 15:35 | Internal Med Progress Note ---
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 Qualifiers: Laterality: left Qualified Code(s): M86.172 - Other acute osteomyelitis, left ankle and foot (2) Hypertension Current Visit: No Status: Chronic Assessment and plan: Chronic and well-controlled Qualifiers: Hypertension type: essential hypertension Qualified Code(s): I10 - Essential (primary) hypertension (3) Dementia Current Visit: No Status: Chronic Assessment and plan: Chronic has underlying dementia Qualifiers: Dementia type: Alzheimer's disease Alzheimer's disease onset: unspecified onset Dementia behavioral disturbance: without behavioral disturbance Qualified Code(s): G30.9 - Alzheimer's disease, unspecified; F02.80 - Dementia in other diseases classified elsewhere without behavioral disturbance; F02.80 - Dementia in other diseases classified elsewhere without behavioral disturbance; F02.80 - Dementia in other diseases classified elsewhere without behavioral disturbance (4) Diabetic foot ulcer Current Visit: Yes Status: Acute Assessment and plan: patient has chronic diabetic foot, then got infected to left ankle Qualifiers: Diabetic foot ulcer location: heel Diabetes mellitus type: type 2 Laterality: left Non-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 Qualified Code(s): E11.621 - Type 2 diabetes mellitus with foot ulcer; 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 Patient had surgery on 11/02, pendign culture Patient is doing well, afebrile, alert oriented 2, her daughter is in the room. He reported pain is well controlled 2-3 out of 10. Nursing is changing his wound 3 times a day. - Constitutional Vitals: Temp Pulse Resp BP Pulse Ox 98.1 F 72 14 103/58 94 11/03/17 12:05 11/03/17 12:05 11/03/17 12:05 11/03/17 12:05 11/03/17 12:05 General appearance: Present: cooperative, A&O X 3, pleasant, no acute distress, underweight, answers questions appropriately Exam: CONSTITUTIONAL: patient appears as an age appropriate male in no acute distress. EYES Clear sclerae, bilateral pupils are equal, reactive to light. EMOI. RESPIRATORY: No accessory muscle use, bilateral clear to auscultation, no wheezing, no crackles/rales. CARDIOVASCULAR: Regular heart rate, normal S1 and S2, no murmurs GASTROINTESTINAL: bowel sounds present, soft, no tenderness. MUSCULOSKELETAL: Joints in normal range of motion, no clubbing, no edema, no cyanosis. Bilateral peripheral pulses 2+. NEUROLOGIC: CN II to XII are grossly intact, no focal neurological deficit. Internal Medicine: Result - Labs CBC & Chem 7: 11/01/17 04:58 11/01/17 04:58 - ABG Interpretation ABG results: PT/INR, D-dimer PT 12.2 Seconds (9.4-12.1) H 10/31/17 17:22 - VTE Documentation of Mechanical Device: Intermittent pneumatic compression device Consult Discharge Plan - Plan Referrals: NONE,PCP [Primary Care Provider] - Saskia Joseph [Family Provider] -
--- NOTE | 2017-11-03 17:29 | Electrocardiograph Report ---
[place] [id number] Test Date: 2017-10-31 Pat Name: Adonis Crow Department: 104 Room: 3A Gender: M Support Services Coordinator: BRYNN : 1940 Requested By: Quang Montejo Order Number: [id number] Reading MD: Giovanna Christensen Measurements Intervals [place] Rate: 70 P: 95 GA: 198 QRS: 63 QRSD: 85 T: 71 QT: 393 QTc: 414 Interpretive Statements SINUS RHYTHM WITH SINUS ARRHYTHMIA Electronically Signed On 11-03-2017 17:27:44 EST by Giovanna Christensen
--- NOTE | 2017-11-03 23:12 | Podiatry Progress Note ---
Date of Encounter: 11/03/17 Time of Encounter: 23:10 - Assessment and Plan (1) Diabetic foot ulcer Current Visit: Yes Status: Acute The patient will need to remain nonweightbearing to the left lower extremity. The patient will need continued dressing changes as instructed. The patient will likely need long-term antibiotics for the likely bone infection near the calcaneus. 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 The patient relates minimal pain. The patient denies any other signs or symptoms. Objective - Vital Signs Vital Signs: Vital Signs Temp Pulse Resp BP Pulse Ox 11/03/17 19:37 98.1 F 74 15 112/63 92 11/03/17 16:55 98.3 F 73 14 132/72 95 11/03/17 12:05 98.1 F 72 14 103/58 94 11/03/17 10:06 94 11/03/17 07:58 98.1 F 71 14 115/60 94 11/03/17 04:48 98.2 F 75 15 115/60 98 11/03/17 00:08 98.3 F 71 15 111/66 96 Intake and Output 11/03/17 11/03/17 11/03/17 07:59 15:59 23:59 Intake Total 100 / 100 1300 / 1300 440 / 440 Output Total 0 / 0 0 / 0 Balance 100 / 100 1300 / 1300 440 / 440 Intake: IV Fluids 100 / 100 1100 / 1100 100 / 100 0.9 % Sodium Chloride 1,000 ML 1000 / 1000 @ 50 mls/hr IVC .Q20H [facility] Rx#: [id number] Zosyn 3.375 GM In 0.9 % Sodium 100 / 100 100 / 100 100 / 100 Chloride 100 ML @ 25 mls/hr IVPB Q8H [facility] Rx#:[id number] Oral 0 / 0 200 / 200 340 / 340 Output: Urine 0 / 0 0 / 0 Other: Meal Breakfast Dinner Percent of Meal Consumed 50% 90% # Voids 0 0 # Urine Diapers 1 Weight 81.5 kg Blood Glucose* 217 110 130 Patient Weight 11/03/17 23:59 Weight 81.5 kg - Exam Exam: Sutures are still intact. No new open lesions are noted. No new purulent drainage. Less erythema. Capillary fill time intact to the digits. - Lab Result Diagrams: 11/01/17 04:58 11/01/17 04:58 Labs: Abnormal lab results RBC 3.42 M/mcL (4.19-5.50) L 11/01/17 04:58 Hgb 9.6 g/dL (12.9-16.9) L D 11/01/17 04:58 Hct 29.5 % (37.5-50.1) L 11/01/17 04:58 ESR 57 mm/hr (0-10) H 10/31/17 17:22 PT 12.2 Seconds (9.4-12.1) H 10/31/17 17:22 POC Glucose 203 (58-89) H 11/03/17 16:57 Calcium 7.7 mg/dL (8.6-10.3) L 11/01/17 04:58 Phosphorus 2.6 mg/dL (2.7-4.5) L 11/01/17 04:58 AST 11 Units/L (13-39) L 10/31/17 17:22 C-Reactive Protein 126 mg/L (Less than 10) H 10/31/17 17:22 Albumin 2.8 g/dL (3.5-5.7) L 10/31/17 17:22 Globulin 3.7 g/dL (2.4-3.5) H 10/31/17 17:22 Albumin/Globulin Ratio 0.8 (1.1-2.2) L 10/31/17 17:22 Microbiology, Last 48 Hours 11/01/17 15:19 Blood Culture - Preliminary Peripheral Venipuncture No growth. 11/01/17 15:09 Blood Culture - Preliminary Peripheral Venipuncture No growth. 11/02/17 09:48 Surgical Biopsy Culture - Preliminary Left Foot - VTE Documentation of Mechanical Device: Intermittent pneumatic compression device Consult Discharge Plan - Plan Referrals: NONE,PCP [Primary Care Provider] - Saskia Joseph [Family Provider] -
[2017-11-04 05:09] LABS: Basophils % 0.2 %; Eosinophils # 0.1 K/mcL (0.0-0.6); Eosinophils % 1.3 %; Hematocrit 28.7 % (37.5-50.1); Hemoglobin 9.2 g/dL (12.9-16.9); Immature Granulocytes % 0.9 % (0-4); Lymphocytes # 1.4 K/mcL (0.6-4.6); Lymphocytes % 17.3 %; Mean Corpuscular HGB Conc 32.1 g/dL (31.6-35.5); Mean Corpuscular Hemoglobin 27.9 pg (28.0-33.3); Mean Platelet Volume 9.5 fL (9.4-12.4); Monocytes # 0.5 K/mcL (0.0-1.3); Monocytes % 5.9 %; Neutrophils # 6.1 K/mcL (1.6-8.9); Platelet Count 277 K/mcL (140-400); Red Cell Distribution Width 14.2 % (11.5-14.5); Segmented Neutrophils % 74.4 %
[2017-11-04 05:28] LABS: BUN/Creatinine Ratio 14 (6-26); Blood Urea Nitrogen 12 mg/dL (8-23); Calcium 7.8 mg/dL (8.6-10.3); Carbon Dioxide 32 mEq/L (23-29); Chloride 105 mEq/L (98-107); Glucose 109 mg/dL (70-105); Osmolality,Calculated 288 (280-300); Sodium 139 mEq/L (136-145); eGFR For African Americans > 60 (> 60); eGFR For Non-African Americans > 60 (> 60)
[2017-11-04] MEDS: Insulin LISPRO 300 UNITS/3 ML VIAL SQ SCH ×4 (07:36→20:37)
[2017-11-04] MEDS: Ascorbic Acid 500 MG TABLET PO SCH ×2 (09:30→19:53)
[2017-11-04] MEDS: Multivit/Ca/Min/Fe/FA 1 TAB TABLET PO SCH (09:30)
[2017-11-04] MEDS: Zinc Sulfate 220 MG CAPSULE PO SCH (09:30)
[2017-11-04] MEDS: 0.9 % Sodium Chloride 1,000 ML IVC SCH ×2 (09:31→21:25)
--- NOTE | 2017-11-04 11:59 | Internal Med Progress Note ---
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 Qualifiers: Laterality: left Qualified Code(s): M86.172 - Other acute osteomyelitis, left ankle and foot (2) Hypertension Current Visit: No Status: Chronic Assessment and plan: Chronic and well-controlled Qualifiers: Hypertension type: essential hypertension Qualified Code(s): I10 - Essential (primary) hypertension (3) Dementia Current Visit: No Status: Chronic Assessment and plan: Patient has advanced stage of dementia, will need placement Qualifiers: Dementia type: Alzheimer's disease Alzheimer's disease onset: unspecified onset Dementia behavioral disturbance: without behavioral disturbance Qualified Code(s): G30.9 - Alzheimer's disease, unspecified; F02.80 - Dementia in other diseases classified elsewhere without behavioral disturbance; F02.80 - Dementia in other diseases classified elsewhere without behavioral disturbance; F02.80 - Dementia in other diseases classified elsewhere without behavioral disturbance (4) Diabetic foot ulcer Current Visit: Yes Status: Acute Assessment and plan: patient has chronic diabetic foot, then got infected to left ankle Qualifiers: Diabetic foot ulcer location: heel Diabetes mellitus type: type 2 Laterality: left Non-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 Qualified Code(s): E11.621 - Type 2 diabetes mellitus with foot ulcer; 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 Patient had surgery on 11/02, wound culture growing E coli and Proteus, but OR coulture on 11/02 is pending I spoke to ID, will consult ID for osteomyelitis Patient is doing ok, did not have breakfast, afebrile, alert oriented 2, He reported pain is well controlled 2-3 out of 10. patient will need ECF when ready - Constitutional Vitals: Temp Pulse Resp BP Pulse Ox 98.2 F 92 14 106/64 93 11/04/17 10:15 11/04/17 10:15 11/04/17 10:15 11/04/17 10:15 11/04/17 10:15 General appearance: Present: cooperative, A&O X 2, A&O X 3, pleasant, no acute distress, underweight, answers questions appropriately Exam: CONSTITUTIONAL: patient appears as an age appropriate male in no acute distress. EYES Clear sclerae, bilateral pupils are equal, reactive to light. EMOI. RESPIRATORY: No accessory muscle use, bilateral clear to auscultation, no wheezing, no crackles/rales. CARDIOVASCULAR: Regular heart rate, normal S1 and S2, no murmurs GASTROINTESTINAL: bowel sounds present, soft, no tenderness. MUSCULOSKELETAL: Joints in normal range of motion, no clubbing, no edema, no cyanosis. Bilateral peripheral pulses 2+. NEUROLOGIC: CN II to XII are grossly intact, no focal neurological deficit. Internal Medicine: Result - Labs CBC & Chem 7: 11/04/17 04:26 11/04/17 04:26 Labs: Short CBC 11/04/17 Range/Units 04:26 WBC 8.2 (4.3-11.1) K/mcL Hgb 9.2 L (12.9-16.9) g/dL Hct 28.7 L (37.5-50.1) % Plt Count 277 (140-400) K/mcL Neutrophils # 6.1 (1.6-8.9) K/mcL BMP 11/04/17 04:26 Sodium 139 Potassium 4.0 Chloride 105 Carbon Dioxide 32 H BUN 12 Creatinine 0.88 Glucose 109 H Calcium 7.8 L - ABG Interpretation ABG results: PT/INR, D-dimer PT 12.2 Seconds (9.4-12.1) H 10/31/17 17:22 - VTE Documentation of Mechanical Device: Intermittent pneumatic compression device Consult Discharge Plan - Plan Referrals: NONE,PCP [Primary Care Provider] - Saskia Joseph [Family Provider] -
--- NOTE | 2017-11-04 14:32 | Podiatry Progress Note ---
Date of Encounter: 11/04/17 Time of Encounter: 12:30 - Assessment and Plan (1) Diabetic foot ulcer Current Visit: Yes Status: Acute S/p Incision and drainage left leg. Release of Achilles tendon/debridement of Achilles tendon. Biopsy of Achilles tendon. Biopsy of calcaneus. Debridement of ulcerations left heel by Dr. Cortes on 11/02/17. WBC: 8.2 Plan: Remain nonweightbearing to the left lower extremity. Continued dressing changes as instructed. The patient will likely need long-term antibiotics for the likely bone infection near the calcaneus. Infectious Disease consulted. 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 Patient is s/p Incision and drainage left leg. Release of Achilles tendon/debridement of Achilles tendon. Biopsy of Achilles tendon. Biopsy of calcaneus. Debridement of ulcerations left heel by Dr. Cortes on 11/02/17. Patient denies any pain. Objective - Vital Signs Vital Signs: Vital Signs Temp Pulse Resp BP Pulse Ox 11/04/17 10:15 98.2 F 92 14 106/64 93 11/04/17 07:30 98.5 F 90 16 121/73 95 11/04/17 04:39 98.2 F 83 16 143/77 93 11/04/17 00:07 98.7 F 70 15 134/74 94 11/03/17 19:37 98.1 F 74 15 112/63 92 11/03/17 16:55 98.3 F 73 14 132/72 95 Intake and Output 11/03/17 11/04/17 11/04/17 23:59 07:59 15:59 Intake Total 440 / 440 100 / 100 1460 / 1460 Output Total 0 / 0 Balance 440 / 440 100 / 100 1460 / 1460 Intake: IV Fluids 100 / 100 100 / 100 1100 / 1100 0.9 % Sodium Chloride 1,000 ML 1000 / 1000 @ 50 mls/hr IVC .Q20H [facility] Rx#: [id number] Zosyn 3.375 GM In 0.9 % Sodium 100 / 100 100 / 100 100 / 100 Chloride 100 ML @ 25 mls/hr IVPB Q8H [facility] Rx#:[id number] Oral 340 / 340 0 / 0 360 / 360 Output: Urine 0 / 0 Other: Meal Dinner Lunch Percent of Meal Consumed 90% 50% # Voids 0 # Urine Diapers 1 2 1 Blood Glucose* 130 104 170 - Exam Exam: General: alert to person place and time, calm and cooperative. Incision: Present: healing (Sutures intact with open surgical wound proximal to incision line with packing, scant amount of serous drainage observed to dressing. No pus, no odor, no streaking. ) Capillary Refill: less than 3 seconds (pedal pulses palpable) - Lab Result Diagrams: 11/04/17 04:26 11/04/17 04:26 Labs: Abnormal lab results RBC 3.30 M/mcL (4.19-5.50) L 11/04/17 04:26 Hgb 9.2 g/dL (12.9-16.9) L 11/04/17 04:26 Hct 28.7 % (37.5-50.1) L 11/04/17 04:26 MCH 27.9 pg (28.0-33.3) L 11/04/17 04:26 ESR 57 mm/hr (0-10) H 10/31/17 17:22 PT 12.2 Seconds (9.4-12.1) H 10/31/17 17:22 Carbon Dioxide 32 mEq/L (23-29) H 11/04/17 04:26 Glucose 109 mg/dL (70-105) H 11/04/17 04:26 POC Glucose 104 (58-89) H 11/04/17 07:26 Calcium 7.8 mg/dL (8.6-10.3) L 11/04/17 04:26 Phosphorus 2.6 mg/dL (2.7-4.5) L 11/01/17 04:58 AST 11 Units/L (13-39) L 10/31/17 17:22 C-Reactive Protein 126 mg/L (Less than 10) H 10/31/17 17:22 Albumin 2.8 g/dL (3.5-5.7) L 10/31/17 17:22 Globulin 3.7 g/dL (2.4-3.5) H 10/31/17 17:22 Albumin/Globulin Ratio 0.8 (1.1-2.2) L 10/31/17 17:22 Microbiology, Last 48 Hours 11/02/17 09:48 Wound Culture - Preliminary Left Foot No growth. 11/02/17 09:48 Surgical Biopsy Culture - Preliminary Left Foot 11/01/17 15:19 Blood Culture - Preliminary Peripheral Venipuncture No growth. 11/01/17 15:09 Blood Culture - Preliminary Peripheral Venipuncture No growth. - VTE Documentation of Mechanical Device: Intermittent pneumatic compression device Consult Discharge Plan - Plan Referrals: NONE,PCP [Primary Care Provider] - Saskia Joseph [Family Provider] -
--- NOTE | 2017-11-04 17:47 | Infectious Disease Consult ---
Date of Encounter: 11/04/17 Time of Encounter: 17:44 Assessment and Plan (1) Achilles tendon infection Status: Acute Assessment and plan: Location: Left foot. Causative organism: P. mirabilis and E. coli. Etiology unclear. The details surrounding the cause and duration of the ulcer are unclear. XR of the left kacey showed findings consistent with OM. ESR 57, CRP 126. Podiatry consulted and following. Status post I&D of the left leg with relief/ debridement of the Achilles tendon as well as biopsy of the Achilles and calcaneus and debridement of the left heel ulcer November [address] Cortes. Operative note reviewed. No evidence of bony changes, but pus was in contact with the bone. Intraoperative cultures are preliminarily negative. Pathology is pending. Blood cultures drawn 10/31/17 and 11/01/17 are NGTD x 4 sets. The patient has no SIRS criteria. Continue wound care and activity restrictions per the podiatry team. Discontinue Vanc and Zosyn. Start Rocephin 2 grams IV daily. Duration of treatment depends on the clinical picture, but likely 4-6 weeks. Consult VAT for line placement before discharge. Will need weekly CBC, BUN/Cr, ESR, CRP. Will need weekly IV care. Follow up with ID 2 weeks post-discharge. (2) Left foot infection Status: Acute Assessment and plan: Location: Left calcaneus. Causative organism: E. coli and P. mirabilis based on swab culture. Likely secondary to diabetic foot ulcer. X-ray of the left ankle showed findings consistent with OM, but intra-op no bony changes were noted. Status post I & D of the left foot. Pus noted adjacent to the bone and the Achilles tendon. Pathology pending. Intra-op cultures preliminarily negative. Continue antibiotics as above. (3) Pneumonia Status: Acute Assessment and plan: CXR completed in the ED showed findings suspicios for right basilar PNA. Clinically, the patient does not appear to have PNA. Repeat CXR. Qualifiers: Qualified Code(s): J18.1 - Lobar pneumonia, unspecified organism (4) Diabetic foot ulcer Status: Acute Assessment and plan: Etiology unclear. Location: Left calcaneus. Wound care per the podiatry team. 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 HgbA1C 6.5 in June 2017. Recommend aggressive glucose monitoring and control to promote wound healing and prevent re-infection. 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 - Other emphysema (7) Dementia Status: Chronic Qualifiers: Qualified Code(s): G30.9 - Alzheimer's disease, unspecified; F02.80 - Dementia in other diseases classified elsewhere without behavioral disturbance; F02.80 - Dementia in other diseases classified elsewhere without behavioral disturbance; F02.80 - Dementia in other diseases classified elsewhere without behavioral disturbance (8) Hypertension Status: Chronic Qualifiers: Qualified Code(s): I10 - Essential (primary) hypertension Infectious Disease HPI - Data of Consult Patient: new to practice Consult date: 11/04/17 Requesting Physician: Andrew Perez MD Primary Care Provider: PCP GISELLE Family Provider: Carroll Provider - Consult Narrative Reason for consult: Left heel osteomyelitis History of present illness: Mr. Crow is a 76 year old male with a past medical history of COPD, dementia , diabetes, and hypertension. The patient was admitted to the hospital febrile 15 for left heel osteomyelitis. We are consulted every 19 for antibiotic recommendations for left heel osteomyelitis. Briefly, the patient is a 76-year-old male with past medical history as stated above. The patient's dementia precludes his ability to produce much information leading to his hospitalization and there is no family at the bedside , therefore, most of the information is obtained from the medical record. On the patient presented to the emergency department on the day of admission with complaints of worsening of a left heel wound. He was brought in by his daughter with whom he lives. She reported that she recently moved the patient and with her due to deplorable conditions at his house. Upon arrival, the patient was afebrile, but he was tachycardic. He is white blood cell count was normal. ESR was elevated at 57 with a CRP of 126. He had a chest x-ray that showed possible right basilar pneumonia. He had an ankle x-ray that showed findings consistent with osteomy this of the calcaneus. A wound culture was obtained and grew out Proteus mirabilis and Escherichia coli. He was started empiric IV vancomycin and IV Zosyn and admitted to the hospital for further evaluation. Since admission, the patient has been evaluated by podiatry. He was taken to the operating room on November 02 and underwent an I&D of the left leg with a release/debridement of the Achilles tendon as well as a biopsy of the Achilles tendon in the calcaneus and a debridement of the heel ulcer. Intraoperative cultures are negative and the pathology is pending. The patient's white blood cell count has remained normal and he has been afebrile and hemodynamically stable. He is currently on IV vancomycin and IV Zosyn. We have been asked to evaluate and make further recommendations. During my exam today, the patient denies any acute issues at this time. He denies any fevers or chills or rigors. He denies any headache or neck pain. He denies any congestion, earache, or sore throat. He denies any chest pain, shortness of breath, or cough. He denies any nausea, vomiting, diarrhea, constipation. According to the nursing notes he has had some diarrhea. He denies any urinary complaints. He states he is a little bit of lunch, but states he does not have much appetite. He denies pain at the surgical site. He denies any oral thrush any skin lesions. He states is very tired and wants to go back to sleep. According to the notes, the patient is been living with his daughter for about a week prior to admission. He denies any tobacco, alcohol, or illicit drug use. CC: Andrew Perez MD Past Med Surg Social Fam HX - Past Medical History Attestation: Yes The following information was validated with the patient. Source: patient, old records reviewed, nursing notes reviewed Medical history: COPD, dementia, diabetes, hypertension, other Psychiatric history: no psych history - Social History Smoking Status: Current some day smoker Smokeless Tobacco Status: Yes (Chew) Alcohol use: none Drug use: none Current living situation: Home, With Family - Family History Father Living Status: Hx Family Endocrine Disorder: Yes (type 2 diabetes) Infectious Disease-CN:Meds No Known Home Drugs 10/31/17 [History] 3 Allergy/AdvReac Type Severity Reaction Status Date / Time No Known Allergies Allergy Verified 10/31/17 16:58 All systems: reviewed and no additional remarkable complaints except as stated Exam - Constitutional Vitals: Temp Pulse Resp BP Pulse Ox 99.0 F 92 18 115/70 94 11/04/17 15:38 11/04/17 15:38 11/04/17 15:38 11/04/17 15:38 11/04/17 15:38 General appearance: average body habitus, cooperative, no acute distress - Head Head exam: Present: atraumatic, normal inspection, normocephalic - Eye Eye exam: Present: EOMI, normal appearance, PERRL Pupils: Present: normal accommodation - ENT ENT exam: Present: mucous membranes dry - Neck Neck exam: Present: normal inspection - Respiratory Respiratory exam: Present: CTAB. Absent: rales, respiratory distress, rhonchi, wheezes - Cardiovascular Cardiovascular exam: Present: RRR, +S1, +S2 - GI/Abdominal GI/Abdominal exam: Present: normal bowel sounds, soft. Absent: distended, tenderness - Extremities Exam Extremities exam: Absent: joint swelling, pedal edema, tenderness Additional comments: Left foot dressing C/D/I with moonboot in place. - Neurological Exam Neurological exam: Present: alert, oriented X3, no focal deficits - Psychiatric Psychiatric exam: Present: normal affect, normal mood - Skin Skin exam: Present: dry, intact, normal color, warm Infectious Disease CN: Results - Labs CBC & Chem 7: 11/04/17 04:26 11/04/17 04:26 Cultures: Cultures 11/02/17 09:48 Wound Culture - Preliminary Left Foot No growth. 11/02/17 09:48 Surgical Biopsy Culture - Preliminary Left Foot 11/01/17 15:19 Blood Culture - Preliminary Peripheral Venipuncture No growth. 11/01/17 15:09 Blood Culture - Preliminary Peripheral Venipuncture No growth. - VTE Documentation of Mechanical Device: Intermittent pneumatic compression device Consult Discharge Plan - Plan Referrals: NONE,PCP [Primary Care Provider] - Saskia Joseph [Family Provider] - - Attending Attestation I examined this patient and my medical decision-making was reviewed with the Resident Physician. I agree with the documented findings, disposition and treatment plan as described except to the extent set forth below. This is an addendum to original report dictated by Key Morgan CNP. Please refer to Debbie note for full detail. Patient is a 76-year-old gentleman with history of COPD, dementia, diabetes mellitus type 2 and hypertension who is also a poor historian. Most of the information was taken from medical records. Apparently patient presented to the emergency department complaining of worsening of the left heel wound. Patient was brought in by his daughter with whom he lives. How long as this wound been going on is not really clear to us. Patient rested and MRSA department on where he was afebrile, tachycardic, normal WBC and elevated ESR and CRP at 50 03/16/26 respectively. Chest x-ray was done and showed possible right basilar pneumonia. An ankle x-ray showed findings consistent with osteomyelitis. A wound culture was obtained and grew out Proteus mirabilis and Escherichia coli. Patient was started on empiric IV vancomycin and Zosyn and admitted to the hospital for further evaluation. Patient was taken to the operating room by podiatry on November 02, 2017 where he underwent an I&D of the left leg with release/debridement of the Achilles tendon as well biopsy of the Achilles tendon in the calcaneus and debridement of the heel ulcer. We were asked to evaluate the patient make further recommendation. Currently patient comfortable lying in bed in no acute distress. Assessment and plan: #1 is Achilles tendon infection #2 his left foot infection/osteomyelitis #3 pneumonia #4 diabetes mellitus type 2 #5 diabetic foot ulcer #6 COPD #7 dementia Start Rocephin 2 g IV every 24 hours that would cover the Proteus and Escherichia coli. Duration of treatment likely 6-8 weeks Need to monitor labs while on Rocephin including weekly CBC, BMP, ESR and CRP Patient will need a PICC line placement Patient is to follow-up with us in clinic in 2 weeks.
[2017-11-04] MEDS: Ibuprofen 400 MG TABLET PO PRN (19:52)
[2017-11-05] MEDS: 0.9 % Sodium Chloride 1,000 ML IVC SCH ×2 (01:40→11:43)
[2017-11-05] MEDS: Ascorbic Acid 500 MG TABLET PO SCH ×2 (08:00→21:09)
[2017-11-05] MEDS: Multivit/Ca/Min/Fe/FA 1 TAB TABLET PO SCH (08:00)
[2017-11-05] MEDS: Zinc Sulfate 220 MG CAPSULE PO SCH (08:00)
[2017-11-05] MEDS: Insulin LISPRO 300 UNITS/3 ML VIAL SQ SCH ×4 (08:29→21:09)
[2017-11-05] MEDS: Ibuprofen 400 MG TABLET PO PRN (11:28)
--- NOTE | 2017-11-05 11:48 | Infectious Disease Progress No ---
Date of Encounter: 11/05/17 Time of Encounter: 11:45 - Assessment and Plan (1) Sepsis Current Visit: Yes Status: Acute The patient has two SIRS criteria. Etiology unclear. Concern for lung source given the patient's moist cough and CXR results. Get blood cultures x 2 sets now. Check lactic acid. Check CBC, BMP now. Check Flu PCR. Check S. pneumoniae and Legionella UAT. Continue Vancomycin IV. Pharmacy to dose. Goal trough ~15. Continue Zosyn 3.375 grams IV Q8H. Qualifiers: Sepsis type: sepsis due to unspecified organism Qualified Code(s): A41.9 - Sepsis, unspecified organism (2) Achilles tendon infection Current Visit: Yes Status: Acute Location: Left foot. Causative organism: P. mirabilis and E. coli. Etiology unclear. The details surrounding the cause and duration of the ulcer are unclear. XR of the left kacey showed findings consistent with OM. ESR 57, CRP 126. Podiatry consulted and following. Status post I&D of the left leg with relief/ debridement of the Achilles tendon as well as biopsy of the Achilles and calcaneus and debridement of the left heel ulcer November [address] Cortes. Operative note reviewed. No evidence of bony changes, but pus was in contact with the bone. Intraoperative cultures are growing P. mirabilis. Pathology was negative for osteomyelitis. Blood cultures drawn 10/31/17 and 11/01/17 are NGTD x 4 sets. Continue wound care and activity restrictions per the podiatry team. Continue Vanc and Zosyn as above for now. Duration of treatment depends on the clinical picture, but likely 4-6 weeks. Consult VAT for line placement before discharge. Will need weekly CBC, BUN/Cr, ESR, CRP. Will need weekly IV care. Follow up with ID 2 weeks post-discharge. (3) Left foot infection Current Visit: Yes Status: Acute Location: Left calcaneus. Causative organism: E. coli and P. mirabilis based on swab culture. Likely secondary to diabetic foot ulcer. X-ray of the left ankle showed findings consistent with OM, but intra-op no bony changes were noted. Status post I & D of the left foot. Pus noted adjacent to the bone and the Achilles tendon. Pathology pending. Intra-op cultures growing P. mirabilis. Pathology negative for osteomyelitis. Continue antibiotics as above. (4) Pneumonia Current Visit: Yes Status: Acute CXR completed in the ED showed findings suspicios for right basilar PNA. Clinically, the patient does not appear to have PNA. Repeat CXR showed persistent right basilar opacity, possibly pneumonitis. Etiology unclear, but patient might be silently aspirating. Consider speech to evaluate. Continue antibiotics as above. Qualifiers: Pneumonia type: due to unspecified organism Laterality: right Lung location: lower lobe of lung Qualified Code(s): J18.1 - Lobar pneumonia, unspecified organism (5) Diabetic foot ulcer Current Visit: Yes Status: Acute Etiology unclear. Location: Left calcaneus. Wound care per the podiatry team. 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 HgbA1C 6.5 in June 2017. Recommend aggressive glucose monitoring and control to promote wound healing and prevent re-infection. 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 mellitus complication status: with unspecified complications Diabetes mellitus nursing home insulin use: without terminal operator use Qualified Code(s): E11.8 - Type 2 diabetes mellitus with unspecified complications (7) COPD (chronic obstructive pulmonary disease) Current Visit: No Status: Chronic Qualifiers: COPD type: emphysema Emphysema type: other Qualified Code(s): J43.8 - Other emphysema (8) Dementia Current Visit: No Status: Chronic Qualifiers: Dementia type: Alzheimer's disease Alzheimer's disease onset: unspecified onset Dementia behavioral disturbance: without behavioral disturbance Qualified Code(s): G30.9 - Alzheimer's disease, unspecified; F02.80 - Dementia in other diseases classified elsewhere without behavioral disturbance; F02.80 - Dementia in other diseases classified elsewhere without behavioral disturbance; F02.80 - Dementia in other diseases classified elsewhere without behavioral disturbance (9) Hypertension Current Visit: No Status: Chronic Qualifiers: Hypertension type: essential hypertension Qualified Code(s): I10 - Essential (primary) hypertension - Subjective Interval history: Since seen and examined. No acute events noted overnight. Patient has been febrile overnight as well as tachycardic. Per nursing, the patient has a moist cough, does not appear to have difficulty swallowing or be aspirating when he takes his medications or eat or drink anything. The patient states he feels tired, but denies other complaints. He denies any chest pain or shortness of breath. He denies any nausea, vomiting, diarrhea, or constipation. He denies abdominal pain, urinary complaints, but states that he doesn't have much appetite and it does not appear that he any breakfast this morning. He denies any pain at the surgical site or elsewhere at this time. He did watch the patient drink a fair amount of water while I was examining him and he did not appear to aspirate or have any dysphagia. Infect Dis PN-Objective Data - Labs CBC & Chem 7: 11/05/17 12:15 11/05/17 12:15 Labs: Laboratory Results - last 24 hr 11/03/17 11/04/17 11/04/17 20:42 11:06 16:02 POC Glucose 130 H 170 H 174 H 11/04/17 11/05/17 20:37 08:08 POC Glucose 195 H 87 Cultures: Cultures 11/02/17 09:48 Surgical Biopsy Culture - Preliminary Left Foot 11/02/17 09:48 Wound Culture - Final Left Foot Proteus mirabilis 11/01/17 15:19 Blood Culture - Preliminary Peripheral Venipuncture No growth. 11/01/17 15:09 Blood Culture - Preliminary Peripheral Venipuncture No growth. - Impressions Impressions Chest X-Ray 11/04/17 18:33 IMPRESSION: 1. Similar right lower lung opacity as described on previous chest which may reflect pneumonitis. Chest radiograph surveillance in 4-6 weeks following treatment is recommended to ensure clearing. 2. Calcific atherosclerotic disease aorta. 3. Findings typical of sequela from smoking. D/ / Constantine Fischer / Constantine Fischer Interpreting Provider: Constantine Fischer Exam - Constitutional Vitals: Temp Pulse Resp BP Pulse Ox 100.7 F H 96 26 130/63 92 11/05/17 08:18 11/05/17 08:18 11/05/17 08:18 11/05/17 08:18 11/05/17 08:18 General appearance: average body habitus, cooperative, no acute distress - Head Head exam: Present: atraumatic, normal inspection, normocephalic - Eye Eye exam: Present: EOMI, normal appearance, PERRL Pupils: Present: normal accommodation - ENT ENT exam: Present: mucous membranes dry - Neck Neck exam: Present: normal inspection - Respiratory Respiratory exam: Present: CTAB. Absent: rales, respiratory distress, rhonchi, wheezes - Cardiovascular Cardiovascular exam: Present: RRR, +S1, +S2 - GI/Abdominal GI/Abdominal exam: Present: normal bowel sounds, soft. Absent: distended, tenderness - Extremities Exam Additional comments: Left foot surgical site noted to the posterior heel and ankle with sutures intact. PAcking removed from open wound with minimal drainage. Wound bed is clear without drainage. No erythema, warmth, or fluctuance noted. - Neurological Exam Neurological exam: Present: alert, oriented X3, no focal deficits - Psychiatric Psychiatric exam: Present: normal affect, normal mood - Skin Skin exam: Present: dry, intact, normal color, warm - VTE Documentation of Mechanical Device: Intermittent pneumatic compression device Consult Discharge Plan - Plan Referrals: NONE,PCP [Primary Care Provider] - Saskia Joseph [Family Provider] - - Attending Attestation I examined this patient and my medical decision-making was reviewed with the Resident Physician. I agree with the documented findings, disposition and treatment plan as described except to the extent set forth below.
[2017-11-05 12:17] LABS: Influenza A PCR Positive (Negative); Influenza B PCR Negative (Negative)
[2017-11-05 12:23] LABS: Basophils % 0.4 %; Eosinophils % 0.2 %; Hematocrit 27.8 % (37.5-50.1); Hemoglobin 8.8 g/dL (12.9-16.9); Immature Granulocytes % 0.6 % (0-4); Lymphocytes # 0.4 K/mcL (0.6-4.6); Lymphocytes % 7.3 %; Mean Corpuscular HGB Conc 31.7 g/dL (31.6-35.5); Mean Corpuscular Hemoglobin 27.7 pg (28.0-33.3); Mean Corpuscular Volume 87.4 fL (83.0-100.0); Mean Platelet Volume 9.2 fL (9.4-12.4); Monocytes # 0.4 K/mcL (0.0-1.3); Monocytes % 6.5 %; Neutrophils # 4.6 K/mcL (1.6-8.9); Platelet Count 205 K/mcL (140-400); Red Blood Count 3.18 M/mcL (4.19-5.50); Red Cell Distribution Width 14.4 % (11.5-14.5)
[2017-11-05 12:42] LABS: BUN/Creatinine Ratio 14 (6-26); Blood Urea Nitrogen 10 mg/dL (8-23); Calcium 7.6 mg/dL (8.6-10.3); Carbon Dioxide 29 mEq/L (23-29); Chloride 105 mEq/L (98-107); Glucose 95 mg/dL (70-105); Osmolality,Calculated 279 (280-300); Potassium 3.7 mEq/L (3.5-5.1); Sodium 135 mEq/L (136-145); eGFR For African Americans > 60 (> 60); eGFR For Non-African Americans > 60 (> 60)
--- NOTE | 2017-11-05 14:51 | Podiatry Progress Note ---
Date of Encounter: 11/05/17 Time of Encounter: 12:00 - Assessment and Plan (1) Acute osteomyelitis of calcaneum Current Visit: Yes Status: Acute Assessment complete s/p Incision and drainage left leg. Release of Achilles tendon/debridement of Achilles tendon. Biopsy of Achilles tendon. Biopsy of calcaneus. Debridement of ulcerations left heel by Dr. Cortes on 11/02/17 Currently receiving IV vancomycin and zosyn, wound culture + E.coli and proteus M. - negative for osteomyelitis- per ID will likely require 4-6 weeks of IV antibiotic therapy NWB to LLE but to our knowledge patient is non ambulatory SW on case- patient not able to manage care at home will likely need LTCF placement ID currently working up patient, temp 100.7 through night, notes likely lung cause- foot wound clean and no appearance of active infection Blood cultures were being obtained at bedside during assessment Dressing to be changed as ordered. Changed and repacked at bedside for proper assessment. Patient will need to follow up in podiatry clinic 1 week after discharge If patient goes home, will need [facility] for dressing changes, otherwise will need changes per LTCF Ankle X-Ray 10/31/17 18:32 IMPRESSION: Erosive/destructive change of the posterior calcaneus consistent with osteomyelitis. D/ / De Borden MD / De Borden MD Interpreting Provider: De Borden MD Qualifiers: Laterality: left Qualified Code(s): M86.172 - Other acute osteomyelitis, left ankle and foot Subjective Principal diagnosis: left heel ulceration Interval history: Patient is lying bed with dressing dry and intact to left foot. Patient is s/p Incision and drainage left leg. Release of Achilles tendon/debridement of Achilles tendon. Biopsy of Achilles tendon. Biopsy of calcaneus. Debridement of ulcerations left heel by Dr. Cortes on 11/02/17. Patient denies any pain. Patient states he has no pain and is otherwise non verbal. Patient assists none with movement of leg. No family at bedside Objective - Vital Signs Vital Signs: Vital Signs Temp Pulse Resp BP Pulse Ox 11/05/17 14:01 98.2 F 90 28 114/63 98 11/05/17 08:18 100.7 F H 96 26 130/63 92 11/05/17 03:12 99.0 F 91 16 128/61 91 11/04/17 23:36 98.2 F 88 32 119/60 95 11/04/17 21:56 99.2 F 102 20 119/55 94 11/04/17 21:06 100.0 F H 100 22 112/50 94 11/04/17 20:22 100.5 F H 106 27 120/58 94 11/04/17 19:37 102.6 F H 109 15 154/75 92 11/04/17 15:38 99.0 F 92 18 115/70 94 Intake and Output 11/04/17 11/05/17 11/05/17 23:59 07:59 15:59 Intake Total 320 / 320 507 / 507 1100 / 1100 Output Total 0 / 0 Balance 320 / 320 507 / 507 1100 / 1100 Intake: IV Fluids 320 / 320 507 / 507 1100 / 1100 0.9 % Sodium Chloride 1,000 ML 320 / 320 407 / 407 1000 / 1000 @ 100 mls/hr IVC .Q10H [facility] Rx#: [id number] Zosyn 3.375 GM In 0.9 % Sodium 100 / 100 100 / 100 Chloride 100 ML @ 25 mls/hr IVPB Q8H [facility] Rx#:[id number] Oral 0 / 0 Output: Urine 0 / 0 Other: # Urine Diapers 1 1 Weight 80.966 kg Blood Glucose* 195 87 Patient Weight 11/05/17 23:59 Weight 80.966 kg - Exam Exam: Podiatry General Exam: General appearance: alert awake, non verbal. Calm and pleasant, no acute distress.. Vascular: Pedal pulses +2/4 DP/PT , No evidence of cyanosis, pallor or rubor, Edema graded at 1+/4, Skin Temperature warm, No calf pain with manual compression. capillary refill time is immediate to digits. Neurologic: Sensation intact with light touch to foot. . Postop Exam: S/P Sutures intact to incision line, open surgical incision with packing to proximal incision, packing removed, healthy granulation tissue to wound bed. No drainage. Scant serosang noted to packing. No odor..no erythema, no streaking. Minimal edema. - Lab Result Diagrams: 11/05/17 12:15 11/05/17 12:15 Labs: Abnormal lab results RBC 3.18 M/mcL (4.19-5.50) L 11/05/17 12:15 Hgb 8.8 g/dL (12.9-16.9) L 11/05/17 12:15 Hct 27.8 % (37.5-50.1) L 11/05/17 12:15 MCH 27.7 pg (28.0-33.3) L 11/05/17 12:15 MPV 9.2 fL (9.4-12.4) L 11/05/17 12:15 Lymphocytes # 0.4 K/mcL (0.6-4.6) L 11/05/17 12:15 ESR 57 mm/hr (0-10) H 10/31/17 17:22 PT 12.2 Seconds (9.4-12.1) H 10/31/17 17:22 Sodium 135 mEq/L (136-145) L 11/05/17 12:15 POC Glucose 96 (58-89) H 11/05/17 12:26 Calculated Osmolality 279 (280-300) L 11/05/17 12:15 Lactic Acid 0.4 mmol/L (0.5-2.2) L 11/05/17 12:15 Calcium 7.6 mg/dL (8.6-10.3) L 11/05/17 12:15 Phosphorus 2.6 mg/dL (2.7-4.5) L 11/01/17 04:58 AST 11 Units/L (13-39) L 10/31/17 17:22 C-Reactive Protein 126 mg/L (Less than 10) H 10/31/17 17:22 Albumin 2.8 g/dL (3.5-5.7) L 10/31/17 17:22 Globulin 3.7 g/dL (2.4-3.5) H 10/31/17 17:22 Albumin/Globulin Ratio 0.8 (1.1-2.2) L 10/31/17 17:22 Microbiology, Last 48 Hours 11/02/17 09:48 Surgical Biopsy Culture - Preliminary Left Foot 11/02/17 09:48 Wound Culture - Final Left Foot Proteus mirabilis - VTE Documentation of Mechanical Device: Intermittent pneumatic compression device Consult Discharge Plan - Plan Referrals: NONE,PCP [Primary Care Provider] - Saskia Joseph [Family Provider] -
--- NOTE | 2017-11-05 17:54 | Internal Med Progress Note ---
Date of Encounter: 11/05/17 Time of Encounter: 14:15 - Assessment and plan (1) Acute osteomyelitis of calcaneum Current Visit: Yes Status: Acute Assessment and plan: Left foot x-ray at admission shows erosive/destructive change of posterior calcaneus consistent with osteomyelitis. Podiatry was consulted, patient underwent incision and drainage of left foot, release and debridement of the Achilles tendon, biopsy of calcaneus and Achilles tendon, debridement of left heel ulceration, on 11/02/17. Continue local wound care and dressings for podiatry recommendations. Patient was initially started on vancomycin and Zosyn. Superficial and operative wound culture grew Proteus mirabilis, Escherichia coli. Infectious diseases was consulted, antibiotics changed to IV Rocephin. Patient developed low-grade fever with tachycardia and tachypnea today. Rapid influenza testing positive for influenza A. Start droplet precautions. Supportive care. Antibiotics have been changed back to vancomycin and Zosyn, per ID. Patient ultimately requires long-term IV zurerazbyel-2-7 weeks for underlying osteomyelitis. special services coordinator on board for possible ECF placement due to underlying dementia and bedbound status. Qualifiers: Laterality: left Qualified Code(s): M86.172 - Other acute osteomyelitis, left ankle and foot (2) Diabetic foot ulcer Current Visit: Yes Status: Acute Assessment and plan: Plan as above. 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 Continue IV vancomycin and Zosyn, as mentioned above. Blood cultures from October 31 and November 01 are negative. Urine legionella and strep pneumococcus antigens negative. Continue supportive care and supplemental oxygen. Check serum lactic acid level. Qualifiers: Pneumonia type: due to unspecified organism Laterality: right Lung location: lower lobe of lung Qualified Code(s): J18.1 - Lobar pneumonia, unspecified organism (4) COPD (chronic obstructive pulmonary disease) Current Visit: Yes Status: Chronic Assessment and plan: Not in acute exacerbation. Continue when necessary bronchodilators and supplemental oxygen. Qualifiers: COPD type: emphysema Emphysema type: other Qualified Code(s): J43.8 - Other emphysema (5) Dementia Current Visit: Yes Status: Chronic Qualifiers: Dementia type: Alzheimer's disease Alzheimer's disease onset: unspecified onset Dementia behavioral disturbance: without behavioral disturbance Qualified Code(s): G30.9 - Alzheimer's disease, unspecified; F02.80 - Dementia in other diseases classified elsewhere without behavioral disturbance; F02.80 - Dementia in other diseases classified elsewhere without behavioral disturbance; F02.80 - Dementia in other diseases classified elsewhere without behavioral disturbance (6) Diabetes Current Visit: Yes Status: Chronic Assessment and plan: Blood sugars noted to be well controlled. Continue Accu-Chek blood glucose monitoring with sliding scale insulin if needed. Diabetic diet. 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 mellitus complication status: with skin complications Diabetes mellitus complication detail: with foot ulcer Diabetes mellitus buttermaker continuous churn insulin use: without long-term use Qualified Code( s): E11.621 - Type 2 diabetes mellitus with foot ulcer; L97.509 - Non-pressure chronic ulcer of other part of unspecified foot with unspecified severity; L97.509 - Non-pressure chronic ulcer of other part of unspecified foot with unspecified severity; L97.509 - Non-pressure chronic ulcer of other part of unspecified foot with unspecified severity; L97.509 - Non-pressure chronic ulcer of other part of unspecified foot with unspecified severity (7) Hypertension Current Visit: Yes Status: Chronic Qualifiers: Hypertension type: essential hypertension Qualified Code(s): I10 - Essential (primary) hypertension - Subjective Interval history: Unable to provide history due to dementia. Denies pain, not noted to be in distress. - Constitutional Vitals: Temp Pulse Resp BP Pulse Ox 98.6 F 81 30 137/72 99 11/05/17 15:54 11/05/17 15:54 11/05/17 15:54 11/05/17 15:54 11/05/17 15:54 General appearance: Present: cooperative, A&O X 2, underweight. Absent: answers questions appropriately - Respiratory Respiratory exam: Present: decreased breath sounds (At bilateral bases), CTAB. Absent: accessory muscle use, rales, rhonchi, wheezes - Cardiovascular Cardiovascular exam: Present: RRR, +S1, +S2. Absent: diastolic murmur, gallop, rubs, systolic murmur - GI/Abdominal GI/Abdominal exam: Present: normal bowel sounds, soft, no peritoneal signs. Absent: distended, tenderness - Extremities Exam Extremities exam: Present: warm, radial pulses palpable and symmetrical. Absent : calf tenderness, cyanotic, pedal edema Additional comments: Left foot in surgical dressing and boot - Neurological Exam Neurological exam: Present: altered, no focal deficits. Absent: pronater drift , facial droop, speech deficit Internal Medicine: Result - Labs CBC & Chem 7: 11/05/17 12:15 11/05/17 12:15 Labs: Short CBC 11/05/17 Range/Units 12:15 WBC 5.4 (4.3-11.1) K/mcL Hgb 8.8 L (12.9-16.9) g/dL Hct 27.8 L (37.5-50.1) % Plt Count 205 (140-400) K/mcL Neutrophils # 4.6 (1.6-8.9) K/mcL BMP 11/05/17 12:15 Sodium 135 L Potassium 3.7 Chloride 105 Carbon Dioxide 29 BUN 10 Creatinine 0.72 Glucose 95 Calcium 7.6 L - ABG Interpretation ABG results: PT/INR, D-dimer PT 12.2 Seconds (9.4-12.1) H 10/31/17 17:22 - Impressions Impressions Chest X-Ray 11/04/17 18:33 IMPRESSION: 1. Similar right lower lung opacity as described on previous chest which may reflect pneumonitis. Chest radiograph surveillance in 4-6 weeks following treatment is recommended to ensure clearing. 2. Calcific atherosclerotic disease aorta. 3. Findings typical of sequela from smoking. D/ / Constantine Fischer / Constantine Fischer Interpreting Provider: Constantine Fischer - VTE Documentation of Mechanical Device: Intermittent pneumatic compression device Consult Discharge Plan - Plan Referrals: NONE,PCP [Primary Care Provider] - Saskia Joseph [Family Provider] -
[2017-11-06] MEDS: Ibuprofen 400 MG TABLET PO PRN ×2 (04:54→21:47)
[2017-11-06 06:23] LABS: Basophils % 0.4 %; Eosinophils % 0.2 %; Hematocrit 30.3 % (37.5-50.1); Hemoglobin 9.3 g/dL (12.9-16.9); Immature Granulocytes % 0.6 % (0-4); Lymphocytes # 0.7 K/mcL (0.6-4.6); Lymphocytes % 12.8 %; Mean Corpuscular HGB Conc 30.7 g/dL (31.6-35.5); Mean Corpuscular Hemoglobin 27.2 pg (28.0-33.3); Mean Corpuscular Volume 88.6 fL (83.0-100.0); Mean Platelet Volume 10.2 fL (9.4-12.4); Monocytes # 0.3 K/mcL (0.0-1.3); Monocytes % 6.3 %; Neutrophils # 4.1 K/mcL (1.6-8.9); Platelet Count 208 K/mcL (140-400); Red Blood Count 3.42 M/mcL (4.19-5.50); Red Cell Distribution Width 14.8 % (11.5-14.5); Segmented Neutrophils % 79.7 %
[2017-11-06 07:06] LABS: Blood Urea Nitrogen 13 mg/dL (8-23); Carbon Dioxide 26 mEq/L (23-29); Chloride 104 mEq/L (98-107); Potassium 3.9 mEq/L (3.5-5.1); Sodium 135 mEq/L (136-145)
[2017-11-06 07:07] LABS: BUN/Creatinine Ratio 18 (6-26); Calcium 7.6 mg/dL (8.6-10.3); Glucose 109 mg/dL (70-105); Magnesium 1.9 mg/dL (1.6-2.6); Osmolality,Calculated 281 (280-300); eGFR For African Americans > 60 (> 60); eGFR For Non-African Americans > 60 (> 60)
[2017-11-06] MEDS: Insulin LISPRO 300 UNITS/3 ML VIAL SQ SCH ×4 (08:00→21:29)
[2017-11-06] MEDS: Zinc Sulfate 220 MG CAPSULE PO SCH (11:46)
[2017-11-06] MEDS: Ascorbic Acid 500 MG TABLET PO SCH ×2 (11:46→21:47)
[2017-11-06] MEDS: Multivit/Ca/Min/Fe/FA 1 TAB TABLET PO SCH (11:46)
[2017-11-06] MEDS: cefTRIAXone 2,000 MG in Water for inj. (sterile) 20 ML 20 ML IVPB SCH (11:51)
--- NOTE | 2017-11-06 13:06 | Podiatry Progress Note ---
Date of Encounter: 11/06/17 Time of Encounter: 12:00 - Assessment and Plan (1) Acute osteomyelitis of calcaneum Current Visit: Yes Status: Acute Assessment complete s/p Incision and drainage left leg. Release of Achilles tendon/debridement of Achilles tendon. Biopsy of Achilles tendon. Biopsy of calcaneus. Debridement of ulcerations left heel by Dr. Cortes on 11/02/17 Currently receiving IV vancomycin and zosyn, wound culture + E.coli and proteus M. - negative for osteomyelitis- per ID will likely require 4-6 weeks of IV antibiotic therapy NWB to LLE but to our knowledge patient is non ambulatory SW on case- patient not able to manage care at home will likely need LTCF placement ID currently working up patient, temp 100.7 through night, notes likely lung cause- foot wound clean and no appearance of active infection Blood cultures were being obtained at bedside during assessment Per decision was made to place wound vac today to assist in healing and formation of healthy granulation tissue Small black simplace sponge placed to open surgical site and tracked along incision line to wic drainage- tracked to top of foot as to not create pressure to incision line. Skin was painted with skin prep prior to application. Wound vac adhered and sealed with minimal leak No drainage noted at this time Patient tolerated well. No complications Will need wound vac changes MWF per nursing staff Small black simplace sponge, 125mmHg cont suction, accurate documentation of output Sw on board, will need discharged with wound vac Patient will need to follow up in podiatry clinic 1 week after discharge If patient goes home, will need [facility] for dressing changes, otherwise will need changes per LTCF Ankle X-Ray 10/31/17 18:32 IMPRESSION: Erosive/destructive change of the posterior calcaneus consistent with osteomyelitis. D/ / De Borden MD / De Borden MD Interpreting Provider: De Borden MD Qualifiers: Laterality: left Qualified Code(s): M86.172 - Other acute osteomyelitis, left ankle and foot Subjective Principal diagnosis: left heel ulceration Interval history: Patient is lying bed with dressing dry and intact to left foot. Patient is s/p Incision and drainage left leg. Release of Achilles tendon/debridement of Achilles tendon. Biopsy of Achilles tendon. Biopsy of calcaneus. Debridement of ulcerations left heel by Dr. Cortes on 11/02/17. Patient denies any pain. Patient states he has no pain and is otherwise non verbal. Patient assists none with movement of leg. No family at bedside. Objective - Vital Signs Vital Signs: Vital Signs Temp Pulse Resp BP Pulse Ox 11/06/17 11:36 98.9 F 83 16 112/63 93 11/06/17 07:30 99.7 F H 80 18 106/60 88 11/06/17 04:35 101.1 F H 86 26 148/70 91 11/06/17 00:25 100.6 F H 85 18 134/66 95 11/05/17 20:10 97.6 F 79 15 120/69 100 11/05/17 18:47 98.7 F 85 16 111/61 94 11/05/17 15:54 98.6 F 81 30 137/72 99 11/05/17 14:01 98.2 F 90 28 114/63 98 Intake and Output 11/05/17 11/06/17 11/06/17 23:59 07:59 15:59 Intake Total 290 / 290 0 / 0 0 / 0 Output Total 0 / 0 0 / 0 Balance 290 / 290 0 / 0 0 / 0 Intake: IV Fluids 200 / 200 Zosyn 3.375 GM In 0.9 % Sodium 200 / 200 Chloride 100 ML @ 25 mls/hr IVPB Q8H [facility] Rx#:[id number] Oral 90 / 90 0 / 0 0 / 0 Output: Urine 0 / 0 0 / 0 Other: Meal Breakfast Percent of Meal Consumed 0% # Urine Diapers 2 Blood Glucose* 159 109 83 - Exam Exam: Incision line clean and intact to sutured area Open surgical wound noted and clean of purulent drainage There is a scant amount of bloody drainage noted across incision line with manipulation of foot and ankle There is minimal surrounding edema, erythema or warmth Patient denies any pain. Pulses faintly palpable Cap refill <3 seconds Warm toes to tibia No calf pain with manual compression - Lab Result Diagrams: 11/06/17 05:50 11/06/17 05:50 Labs: Abnormal lab results RBC 3.42 M/mcL (4.19-5.50) L 11/06/17 05:50 Hgb 9.3 g/dL (12.9-16.9) L 11/06/17 05:50 Hct 30.3 % (37.5-50.1) L 11/06/17 05:50 MCH 27.2 pg (28.0-33.3) L 11/06/17 05:50 MCHC 30.7 g/dL (31.6-35.5) L 11/06/17 05:50 RDW 14.8 % (11.5-14.5) H 11/06/17 05:50 ESR 57 mm/hr (0-10) H 10/31/17 17:22 PT 12.2 Seconds (9.4-12.1) H 10/31/17 17:22 Sodium 135 mEq/L (136-145) L 11/06/17 05:50 Glucose 109 mg/dL (70-105) H 11/06/17 05:50 POC Glucose 159 (58-89) H 11/05/17 20:45 Lactic Acid 0.4 mmol/L (0.5-2.2) L 11/05/17 12:15 Calcium 7.6 mg/dL (8.6-10.3) L 11/06/17 05:50 Phosphorus 2.6 mg/dL (2.7-4.5) L 11/01/17 04:58 AST 11 Units/L (13-39) L 10/31/17 17:22 C-Reactive Protein 126 mg/L (Less than 10) H 10/31/17 17:22 Albumin 2.8 g/dL (3.5-5.7) L 10/31/17 17:22 Globulin 3.7 g/dL (2.4-3.5) H 10/31/17 17:22 Albumin/Globulin Ratio 0.8 (1.1-2.2) L 10/31/17 17:22 Influenza Type A (PCR) Positive (Negative) A 11/05/17 11:35 Microbiology, Last 48 Hours 11/02/17 09:48 Surgical Biopsy Culture - Final Left Foot 11/05/17 14:15 Legionella Antigen - Final Urine,Clean Catch Streptococcus pneumoniae Antigen (M - Final 11/02/17 09:48 Wound Culture - Final Left Foot Proteus mirabilis - VTE Documentation of Mechanical Device: Intermittent pneumatic compression device Consult Discharge Plan - Plan Referrals: NONE,PCP [Primary Care Provider] - Saskia Joseph [Family Provider] -
--- NOTE | 2017-11-06 13:21 | Infectious Disease Progress No ---
Date of Encounter: 11/06/17 Time of Encounter: 13:19 - Assessment and Plan (1) Sepsis Current Visit: Yes Status: Acute The patient had two SIRS criteria. Likely secondary to influenza A. Blood cultures drawn 11/05/17 are pending x 2 sets. Lactic acid was normal. WBC remains normal. Qualifiers: Sepsis type: sepsis due to unspecified organism Qualified Code(s): A41.9 - Sepsis, unspecified organism (2) Influenza A Current Visit: Yes Status: Acute Continue to have fevers overnight. Influenza PCR positive. Start Tamiflu 75mg PO BID. Continue supportive care. (3) Achilles tendon infection Current Visit: Yes Status: Acute Location: Left foot. Causative organism: P. mirabilis and E. coli. Etiology unclear. The details surrounding the cause and duration of the ulcer are unclear. XR of the left kacey showed findings consistent with OM. ESR 57, CRP 126. Podiatry consulted and following. Status post I&D of the left leg with relief/ debridement of the Achilles tendon as well as biopsy of the Achilles and calcaneus and debridement of the left heel ulcer November [address] Cortes. Operative note reviewed. No evidence of bony changes, but pus was in contact with the bone. Intraoperative cultures are growing P. mirabilis. Pathology was negative for osteomyelitis. Blood cultures drawn 10/31/17 and 11/01/17 are NGTD x 4 sets. Continue wound care and activity restrictions per the podiatry team. Continue Zosyn 3.375 grams Q8H for now. Once evaluated by speech therapy and if aspiration ruled out, will de-escalate, but will keep Zosyn for now to cover anaerobes in the case of aspiration. Duration of treatment depends on the clinical picture, but likely 4-6 weeks. Consult VAT for line placement before discharge. Will need weekly CBC, BUN/Cr, ESR, CRP. Will need weekly IV care. Follow up with ID 2 weeks post-discharge. (4) Left foot infection Current Visit: Yes Status: Acute Location: Left calcaneus. Causative organism: E. coli and P. mirabilis based on swab culture. Likely secondary to diabetic foot ulcer. X-ray of the left ankle showed findings consistent with OM, but intra-op no bony changes were noted. Status post I & D of the left foot. Pus noted adjacent to the bone and the Achilles tendon. Pathology pending. Intra-op cultures growing P. mirabilis. Pathology negative for osteomyelitis. Continue antibiotics as above. (5) Pneumonia Current Visit: Yes Status: Suspected CXR completed in the ED showed findings suspicios for right basilar PNA. Clinically, the patient does not appear to have PNA. Repeat CXR showed persistent right basilar opacity, possibly pneumonitis, but this could also be related to the patient's influenza. Etiology unclear, but patient might be silently aspirating. Consider speech to evaluate. Continue antibiotics as above. Discussed with Dr. De La Vega. Qualifiers: Pneumonia type: due to unspecified organism Laterality: right Lung location: lower lobe of lung Qualified Code(s): J18.1 - Lobar pneumonia, unspecified organism (6) Diabetic foot ulcer Current Visit: Yes Status: Acute Etiology unclear. Location: Left calcaneus. Wound care per the podiatry team. 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 HgbA1C 6.5 in June 2017. Recommend aggressive glucose monitoring and control to promote wound healing and prevent re-infection. 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 mellitus complication status: with skin complications Diabetes mellitus complication detail: with foot ulcer Diabetes mellitus long term care administrator insulin use: without group home use Qualified Code( s): E11.621 - Type 2 diabetes mellitus with foot ulcer; L97.509 - Non-pressure chronic ulcer of other part of unspecified foot with unspecified severity; L97.509 - Non-pressure chronic ulcer of other part of unspecified foot with unspecified severity; L97.509 - Non-pressure chronic ulcer of other part of unspecified foot with unspecified severity; L97.509 - Non-pressure chronic ulcer of other part of unspecified foot with unspecified severity (8) COPD (chronic obstructive pulmonary disease) Current Visit: Yes Status: Chronic Qualifiers: COPD type: emphysema Emphysema type: other Qualified Code(s): J43.8 - Other emphysema (9) Dementia Current Visit: Yes Status: Chronic Poor PO intake and worsening mental status per the patient's daughter. Consider nutritional and Palliative care consultation. Discussed with Dr. De La Vega. Qualifiers: Dementia type: Alzheimer's disease Alzheimer's disease onset: unspecified onset Dementia behavioral disturbance: without behavioral disturbance Qualified Code(s): G30.9 - Alzheimer's disease, unspecified; F02.80 - Dementia in other diseases classified elsewhere without behavioral disturbance; F02.80 - Dementia in other diseases classified elsewhere without behavioral disturbance; F02.80 - Dementia in other diseases classified elsewhere without behavioral disturbance (10) Hypertension Current Visit: Yes Status: Chronic Qualifiers: Hypertension type: essential hypertension Qualified Code(s): I10 - Essential (primary) hypertension - Subjective Interval history: Patient seen and examined with his daughter at the bedside. No acute events noted overnight. Patient has been febrile overnight, but tachycardia has improved. He denies any chest pain or shortness of breath. He denies any nausea , vomiting, diarrhea, or constipation. He denies abdominal pain, urinary complaints, but states that he doesn't have much appetite and it does not appear that he any breakfast this morning. He denies any pain at the surgical site or elsewhere at this time. I spoke with the patient's daughter who reports concern about the patient's mental status, depression, and lack of PO intake. Infect Dis PN-Objective Data - Labs CBC & Chem 7: 11/06/17 05:50 11/06/17 05:50 Labs: Laboratory Results - last 24 hr 11/05/17 11/05/17 11/05/17 11:35 17:05 20:45 WBC RBC Hgb Hct MCV MCH MCHC RDW Plt Count MPV Immature Gran % Seg Neutrophils % Lymphocytes % Monocytes % Eosinophils % Basophils % Neutrophils # Lymphocytes # Monocytes # Eosinophils # Basophils # Sodium Potassium Chloride Carbon Dioxide BUN Creatinine Est GFR ( Amer) Est GFR (Non-Af Amer) BUN/Creatinine Ratio Glucose POC Glucose 98 H 159 H Calculated Osmolality Calcium Magnesium Influenza Type A (PCR) Positive A Influenza Type B (PCR) Negative 11/06/17 11/06/17 05:50 05:50 WBC 5.1 RBC 3.42 L Hgb 9.3 L Hct 30.3 L MCV 88.6 MCH 27.2 L MCHC 30.7 L RDW 14.8 H Plt Count 208 MPV 10.2 Immature Gran % 0.6 Seg Neutrophils % 79.7 Lymphocytes % 12.8 Monocytes % 6.3 Eosinophils % 0.2 Basophils % 0.4 Neutrophils # 4.1 Lymphocytes # 0.7 Monocytes # 0.3 Eosinophils # 0.0 Basophils # 0.0 Sodium 135 L Potassium 3.9 Chloride 104 Carbon Dioxide 26 BUN 13 Creatinine 0.71 Est GFR ( Amer) > 60 Est GFR (Non-Af Amer) > 60 BUN/Creatinine Ratio 18 Glucose 109 H POC Glucose Calculated Osmolality 281 Calcium 7.6 L Magnesium 1.9 Influenza Type A (PCR) Influenza Type B (PCR) Cultures: Cultures 11/02/17 09:48 Surgical Biopsy Culture - Final Left Foot 11/05/17 14:15 Legionella Antigen - Final Urine,Clean Catch Streptococcus pneumoniae Antigen (M - Final 11/02/17 09:48 Wound Culture - Final Left Foot Proteus mirabilis 11/01/17 15:19 Blood Culture - Preliminary Peripheral Venipuncture No growth. 11/01/17 15:09 Blood Culture - Preliminary Peripheral Venipuncture No growth. Serology 11/05/17 Range/Units 11:35 Influenza Type A (PCR) Positive A (Negative) Influenza Type B (PCR) Negative (Negative) Exam - Constitutional Vitals: Temp Pulse Resp BP Pulse Ox 98.9 F 83 16 112/63 93 11/06/17 11:36 11/06/17 11:36 11/06/17 11:36 11/06/17 11:36 11/06/17 11:36 General appearance: average body habitus, cooperative, no acute distress - Head Head exam: Present: atraumatic, normal inspection, normocephalic - Eye Eye exam: Present: EOMI, normal appearance, PERRL Pupils: Present: normal accommodation - ENT ENT exam: Present: mucous membranes dry - Neck Neck exam: Present: normal inspection - Respiratory Respiratory exam: Present: rhonchi (Throughout). Absent: rales, respiratory distress, wheezes - Cardiovascular Cardiovascular exam: Present: RRR, +S1, +S2 - GI/Abdominal GI/Abdominal exam: Present: normal bowel sounds, soft. Absent: distended, tenderness - Extremities Exam Extremities exam: Absent: joint swelling, pedal edema, tenderness Additional comments: Left foot dressing and heel protector noted. - Neurological Exam Neurological exam: Present: alert, oriented X3, no focal deficits - Psychiatric Psychiatric exam: Present: normal affect, normal mood - Skin Skin exam: Present: dry, intact, normal color, warm - VTE Documentation of Mechanical Device: Intermittent pneumatic compression device Consult Discharge Plan - Plan Referrals: NONE,PCP [Primary Care Provider] - Saskia Joseph [Family Provider] -
--- NOTE | 2017-11-06 17:31 | Internal Med Progress Note ---
Date of Encounter: 11/06/17 Time of Encounter: 12:45 - Assessment and plan (1) Acute osteomyelitis of calcaneum Current Visit: Yes Status: Acute Assessment and plan: Left foot x-ray at admission shows erosive/destructive change of posterior calcaneus consistent with osteomyelitis. Podiatry was consulted, patient underwent incision and drainage of left foot, release and debridement of the Achilles tendon, biopsy of calcaneus and Achilles tendon, debridement of left heel ulceration, on 11/02/17. Continue local wound care and dressings for podiatry recommendations. Patient was initially started on vancomycin and Zosyn. Superficial and operative wound culture grew Proteus mirabilis, Escherichia coli. Infectious diseases was consulted, antibiotics currently changed to IV Rocephin. Patient developed low-grade fever with tachycardia and tachypnea during this hospitalization. Rapid influenza testing positive for influenza A. Start droplet precautions, on Tamiflu per ID; Supportive care. Patient ultimately requires long-term IV perlprplyxo-5-8 weeks for underlying osteomyelitis. technical services librarian on board for possible ECF placement due to underlying dementia and bedbound status. Qualifiers: Laterality: left Qualified Code(s): M86.172 - Other acute osteomyelitis, left ankle and foot (2) Diabetic foot ulcer Current Visit: Yes Status: Acute Assessment and plan: Plan as above. 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 Has been on IV Zosyn for 4 days, as mentioned above, changed to IV Rocephin today. Blood cultures from October 31 and November 01 are negative. Urine legionella and strep pneumococcus antigens negative. Continue supportive care and supplemental oxygen. Serum lactic acid level normal. Concern for possible aspiration due to dementia- consulted speech therapy, underwent bedside swallow evaluation, cleared for soft diet and thin liquids. Qualifiers: Pneumonia type: due to unspecified organism Laterality: right Lung location: lower lobe of lung Qualified Code(s): J18.1 - Lobar pneumonia, unspecified organism (4) COPD (chronic obstructive pulmonary disease) Current Visit: Yes Status: Chronic Assessment and plan: Not in acute exacerbation. Continue when necessary bronchodilators and supplemental oxygen. Qualifiers: COPD type: emphysema Emphysema type: other Qualified Code(s): J43.8 - Other emphysema (5) Dementia Current Visit: Yes Status: Chronic Assessment and plan: Patient has advanced stage of dementia, affecting his diet and causing malnutrition. We will discuss with patient's daughter, nursing staff indicate she may be interested in feeding tube placement. This would not help in patient 's functional status or survival and he would be at risk for further aspiration and morbidity. Qualifiers: Dementia type: Alzheimer's disease Alzheimer's disease onset: unspecified onset Dementia behavioral disturbance: without behavioral disturbance Qualified Code(s): G30.9 - Alzheimer's disease, unspecified; F02.80 - Dementia in other diseases classified elsewhere without behavioral disturbance; F02.80 - Dementia in other diseases classified elsewhere without behavioral disturbance; F02.80 - Dementia in other diseases classified elsewhere without behavioral disturbance (6) Diabetes Current Visit: Yes Status: Chronic Assessment and plan: Blood sugars noted to be well controlled. Continue Accu-Chek blood glucose monitoring with sliding scale insulin if needed. Diabetic diet. 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 mellitus complication status: with skin complications Diabetes mellitus complication detail: with foot ulcer Diabetes mellitus care home insulin use: without intermediate manager use Qualified Code( s): E11.621 - Type 2 diabetes mellitus with foot ulcer; L97.509 - Non-pressure chronic ulcer of other part of unspecified foot with unspecified severity; L97.509 - Non-pressure chronic ulcer of other part of unspecified foot with unspecified severity; L97.509 - Non-pressure chronic ulcer of other part of unspecified foot with unspecified severity; L97.509 - Non-pressure chronic ulcer of other part of unspecified foot with unspecified severity (7) Hypertension Current Visit: Yes Status: Chronic Qualifiers: Hypertension type: essential hypertension Qualified Code(s): I10 - Essential (primary) hypertension (8) Influenza A Current Visit: Yes Status: Acute Assessment and plan: on Tamiflu, as above; - Subjective Interval history: Unable to provide history due to dementia. Fast asleep; - Constitutional Vitals: Temp Pulse Resp BP Pulse Ox 97.5 F L 80 16 121/70 93 11/06/17 15:15 11/06/17 15:15 11/06/17 15:15 11/06/17 15:15 11/06/17 15:15 General appearance: Present: cooperative, A&O X 1 (very somnolent), underweight. Absent: answers questions appropriately - Respiratory Respiratory exam: Present: decreased breath sounds (at B/L bases), CTAB (coarse breath sounds B/L anterolaterally). Absent: accessory muscle use, rales, rhonchi, wheezes - Cardiovascular Cardiovascular exam: Present: RRR, +S1, +S2. Absent: diastolic murmur, gallop, rubs, systolic murmur - GI/Abdominal GI/Abdominal exam: Present: normal bowel sounds, soft, no peritoneal signs. Absent: distended, tenderness - Neurological Exam Neurological exam: Present: altered, no focal deficits. Absent: pronater drift , facial droop, speech deficit Internal Medicine: Result - Labs CBC & Chem 7: 11/06/17 05:50 11/06/17 05:50 Labs: Short CBC 11/06/17 Range/Units 05:50 WBC 5.1 (4.3-11.1) K/mcL Hgb 9.3 L (12.9-16.9) g/dL Hct 30.3 L (37.5-50.1) % Plt Count 208 (140-400) K/mcL Neutrophils # 4.1 (1.6-8.9) K/mcL BMP 11/06/17 05:50 Sodium 135 L Potassium 3.9 Chloride 104 Carbon Dioxide 26 BUN 13 Creatinine 0.71 Glucose 109 H Calcium 7.6 L - ABG Interpretation ABG results: PT/INR, D-dimer PT 12.2 Seconds (9.4-12.1) H 10/31/17 17:22 - VTE Documentation of Mechanical Device: Intermittent pneumatic compression device Consult Discharge Plan - Plan Referrals: NONE,PCP [Primary Care Provider] - Saskia Joseph [Family Provider] -
[2017-11-07] MEDS: Ascorbic Acid 500 MG TABLET PO SCH ×2 (07:54→21:32)
[2017-11-07] MEDS: Zinc Sulfate 220 MG CAPSULE PO SCH (07:54)
[2017-11-07] MEDS: Multivit/Ca/Min/Fe/FA 1 TAB TABLET PO SCH (07:54)
[2017-11-07] MEDS: Insulin LISPRO 300 UNITS/3 ML VIAL SQ SCH ×4 (08:04→21:31)
[2017-11-07] MEDS: cefTRIAXone 2,000 MG in Water for inj. (sterile) 20 ML 20 ML IVPB SCH (11:57)
--- NOTE | 2017-11-07 13:33 | Infectious Disease Progress No ---
Date of Encounter: 11/07/17 Time of Encounter: 13:31 - Assessment and Plan (1) Sepsis Current Visit: Yes Status: Acute The patient had two SIRS criteria. Likely secondary to influenza A. Blood cultures drawn 11/05/17 are NGTD x 2 sets. Lactic acid was normal. WBC remains normal. Low-grade fevers persist overnight. Qualifiers: Sepsis type: sepsis due to unspecified organism Qualified Code(s): A41.9 - Sepsis, unspecified organism (2) Influenza A Current Visit: Yes Status: Acute Continue to have fevers overnight. Influenza PCR positive. Continue Tamiflu 75mg PO BID x 5 days. Continue supportive care. (3) Achilles tendon infection Current Visit: Yes Status: Acute Location: Left foot. Causative organism: P. mirabilis and E. coli. Etiology unclear. The details surrounding the cause and duration of the ulcer are unclear. XR of the left kacey showed findings consistent with OM. ESR 57, CRP 126. Podiatry consulted and following. Status post I&D of the left leg with relief/ debridement of the Achilles tendon as well as biopsy of the Achilles and calcaneus and debridement of the left heel ulcer November [address] Cortes. Operative note reviewed. No evidence of bony changes, but pus was in contact with the bone. Intraoperative cultures are growing P. mirabilis. Pathology was negative for osteomyelitis. Blood cultures drawn 10/31/17 and 11/01/17 are NGTD x 4 sets. Continue wound care and activity restrictions per the podiatry team. Continue Rocephin 2 grams IV daily. Duration of treatment depends on the clinical picture, but likely 4-6 weeks. Will need weekly CBC, BUN/Cr, ESR, CRP. Will need weekly IV care. Follow up with ID 2 weeks post-discharge. (4) Left foot infection Current Visit: Yes Status: Acute Location: Left calcaneus. Causative organism: E. coli and P. mirabilis based on swab culture. Likely secondary to diabetic foot ulcer. X-ray of the left ankle showed findings consistent with OM, but intra-op no bony changes were noted. Status post I & D of the left foot. Pus noted adjacent to the bone and the Achilles tendon. Pathology pending. Intra-op cultures growing P. mirabilis. Pathology negative for osteomyelitis. Continue antibiotics as above. (5) Pneumonia Current Visit: Yes Status: Suspected CXR completed in the ED showed findings suspicios for right basilar PNA. Clinically, the patient does not appear to have PNA. Repeat CXR showed persistent right basilar opacity, possibly pneumonitis, but this could also be related to the patient's influenza. Etiology unclear, but patient might be silently aspirating. Speech therapy evaluation negative for aspiration. Continue antibiotics as above. Qualifiers: Pneumonia type: due to unspecified organism Laterality: right Lung location: lower lobe of lung Qualified Code(s): J18.1 - Lobar pneumonia, unspecified organism (6) Diabetic foot ulcer Current Visit: Yes Status: Acute Etiology unclear. Location: Left calcaneus. Wound care per the podiatry team. 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 HgbA1C 6.5 in June 2017. Recommend aggressive glucose monitoring and control to promote wound healing and prevent re-infection. 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 mellitus complication status: with skin complications Diabetes mellitus complication detail: with foot ulcer Diabetes mellitus half-way insulin use: without half-way use Qualified Code( s): E11.621 - Type 2 diabetes mellitus with foot ulcer; L97.509 - Non-pressure chronic ulcer of other part of unspecified foot with unspecified severity; L97.509 - Non-pressure chronic ulcer of other part of unspecified foot with unspecified severity; L97.509 - Non-pressure chronic ulcer of other part of unspecified foot with unspecified severity; L97.509 - Non-pressure chronic ulcer of other part of unspecified foot with unspecified severity (8) COPD (chronic obstructive pulmonary disease) Current Visit: Yes Status: Chronic Qualifiers: COPD type: emphysema Emphysema type: other Qualified Code(s): J43.8 - Other emphysema (9) Dementia Current Visit: Yes Status: Chronic Poor PO intake and worsening mental status per the patient's daughter. Consider nutritional and Palliative care consultation. Discussed with Dr. De La Vega. Qualifiers: Dementia type: Alzheimer's disease Alzheimer's disease onset: unspecified onset Dementia behavioral disturbance: without behavioral disturbance Qualified Code(s): G30.9 - Alzheimer's disease, unspecified; F02.80 - Dementia in other diseases classified elsewhere without behavioral disturbance; F02.80 - Dementia in other diseases classified elsewhere without behavioral disturbance; F02.80 - Dementia in other diseases classified elsewhere without behavioral disturbance (10) Hypertension Current Visit: Yes Status: Chronic Qualifiers: Hypertension type: essential hypertension Qualified Code(s): I10 - Essential (primary) hypertension - Subjective Interval history: Patient seen and examined. No acute events noted overnight. Patient continues to have low-grade fevers overnight, but tachycardia has resolved. He is not willing to participate in the exam this morning and states he just wants to lie in bed and rest. He will not answer any ROS questions. Infect Dis PN-Objective Data - Labs CBC & Chem 7: 11/08/17 04:06 11/08/17 04:00 Labs: Laboratory Results - last 24 hr 11/06/17 11/06/17 11/06/17 07:31 11:43 16:34 POC Glucose 109 H 83 70 11/07/17 11/07/17 11/07/17 07:44 08:27 09:47 POC Glucose 63 75 80 11/07/17 12:04 POC Glucose 78 Cultures: Cultures 11/01/17 15:19 Blood Culture - Final Peripheral Venipuncture No growth. 11/01/17 15:09 Blood Culture - Final Peripheral Venipuncture No growth. 11/05/17 12:15 Blood Culture - Preliminary Peripheral Venipuncture No growth. 11/05/17 12:15 Blood Culture - Preliminary Peripheral Venipuncture No growth. 11/02/17 09:48 Surgical Biopsy Culture - Final Left Foot 11/05/17 14:15 Legionella Antigen - Final Urine,Clean Catch Streptococcus pneumoniae Antigen (M - Final 11/02/17 09:48 Wound Culture - Final Left Foot Proteus mirabilis Serology 11/05/17 Range/Units 11:35 Influenza Type A (PCR) Positive A (Negative) Influenza Type B (PCR) Negative (Negative) Exam - Constitutional Vitals: Temp Pulse Resp BP Pulse Ox 97.9 F 72 23 114/66 91 11/07/17 07:52 11/07/17 07:52 11/07/17 07:52 11/07/17 07:52 11/07/17 07:52 General appearance: average body habitus, cooperative, no acute distress - Head Head exam: Present: atraumatic, normal inspection, normocephalic - Eye Eye exam: Present: EOMI, normal appearance, PERRL Pupils: Present: normal accommodation - ENT ENT exam: Present: mucous membranes dry - Neck Neck exam: Present: normal inspection - Respiratory Respiratory exam: Present: rhonchi. Absent: CTAB, rales, respiratory distress, wheezes - Cardiovascular Cardiovascular exam: Present: RRR, +S1, +S2 - GI/Abdominal GI/Abdominal exam: Present: normal bowel sounds, soft. Absent: distended, tenderness - Extremities Exam Extremities exam: Absent: joint swelling, pedal edema, tenderness Additional comments: Left foot dressing with heel protector noted. - Neurological Exam Neurological exam: Present: alert, no focal deficits. Absent: oriented X3 ( Oriented to person only.) - Skin Skin exam: Present: dry, intact, normal color, warm - VTE Documentation of Mechanical Device: Intermittent pneumatic compression device Consult Discharge Plan - Plan Referrals: NONE,PCP [Primary Care Provider] - Saskia Joseph [Family Provider] - - Attending Attestation I examined this patient and my medical decision-making was reviewed with the Resident Physician. I agree with the documented findings, disposition and treatment plan as described except to the extent set forth below.
[2017-11-07] MEDS: D5% in 0.9% NACL 1,000 ML IVC SCH (14:26)
[2017-11-07] MEDS: MetroNIDAZOLE 500 MG/100 ML 500 MG/100 ML BAG IVPB SCH ×2 (16:40→23:59)
--- NOTE | 2017-11-07 16:58 | Internal Med Progress Note ---
Date of Encounter: 11/07/17 Time of Encounter: 16:56 - Assessment and plan (1) Dementia Current Visit: Yes Status: Chronic Assessment and plan: Unclear history. Met with patient's daughter, Eloisa today; patient has been alert and oriented 3 months back, when she saw him last. Daughter also claims that she was informed patient had mild schizophrenia but unaware of dementia diagnosis. Upon review of previous records, patient was admitted in June 2017 for altered mental status, likely undiagnosed dementia. Patient has been living alone until this admission. At this time, he displays poor cognition, is oriented only to person and sometimes to place. We will consult psychiatry. environmental services manager on board, plan for transfer to ECF/alf. Patient has no power of prosecuting attorney/living will, daughter is his next of kin. According to daughter and patient's wishes, will change his CODE STATUS to DNR comfort care arrest/DNI at this time. Qualifiers: Dementia type: Alzheimer's disease Alzheimer's disease onset: unspecified onset Dementia behavioral disturbance: without behavioral disturbance Qualified Code(s): G30.9 - Alzheimer's disease, unspecified; F02.80 - Dementia in other diseases classified elsewhere without behavioral disturbance; F02.80 - Dementia in other diseases classified elsewhere without behavioral disturbance; F02.80 - Dementia in other diseases classified elsewhere without behavioral disturbance (2) Influenza A Current Visit: Yes Status: Acute Assessment and plan: Rapid influenza testing positive for influenza A. Start droplet precautions, on Tamiflu per ID; Supportive care. (3) Acute osteomyelitis of calcaneum Current Visit: Yes Status: Acute Assessment and plan: Podiatry was consulted, patient underwent incision and drainage of left foot, release and debridement of the Achilles tendon, biopsy of calcaneus and Achilles tendon, debridement of left heel ulceration, on 11/02/17. Continue local wound care and dressings, wound vac per podiatry recommendations. Patient was initially started on vancomycin and Zosyn. Superficial and operative wound culture grew Proteus mirabilis, Escherichia coli. Preliminary anaerobic cultures grow multiple GN rods, will start Flagyl; Infectious diseases was consulted, antibiotics currently changed to IV Rocephin. Patient ultimately requires long-term IV salqlqdriec-5-5 weeks for underlying osteomyelitis. environmental services manager on board for possible ECF placement due to underlying dementia and bedbound status. Qualifiers: Laterality: left Qualified Code(s): M86.172 - Other acute osteomyelitis, left ankle and foot (4) Diabetic foot ulcer Current Visit: Yes Status: Acute Assessment and plan: Plan as above. 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 Has been on IV Zosyn for 4 days, then, changed to IV Rocephin- day 2. Blood cultures from October 31 and November 01 are negative. Urine legionella and strep pneumococcus antigens negative. Continue supportive care and supplemental oxygen. Serum lactic acid level normal. Concern for possible aspiration due to dementia- consulted speech therapy, underwent bedside swallow evaluation, cleared for soft diet and thin liquids. Qualifiers: Pneumonia type: due to unspecified organism Laterality: right Lung location: lower lobe of lung Qualified Code(s): J18.1 - Lobar pneumonia, unspecified organism (6) COPD (chronic obstructive pulmonary disease) Current Visit: Yes Status: Chronic Qualifiers: COPD type: emphysema Emphysema type: other Qualified Code(s): J43.8 - Other emphysema (7) Diabetes Current Visit: Yes Status: Chronic Assessment and plan: Continues to have low normal blood sugars due to poor oral intake. Continue Accu-Chek blood glucose monitoring, start D5 fluids at a low rate. 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 2 diabetes mellitus with foot ulcer; L97.509 - Non-pressure chronic ulcer of other part of unspecified foot with unspecified severity; L97.509 - Non-pressure chronic ulcer of other part of unspecified foot with unspecified severity; L97.509 - Non-pressure chronic ulcer of other part of unspecified foot with unspecified severity; L97.509 - Non-pressure chronic ulcer of other part of unspecified foot with unspecified severity (8) Hypertension Current Visit: Yes Status: Chronic Qualifiers: Hypertension type: essential hypertension Qualified Code(s): I10 - Essential (primary) hypertension - Subjective Interval history: Unable to provide history due to dementia. Irritable today, just wants to rest; has been asleep most of the day, poor appetite; has low normal blood sugars; plan of care d/w daughter at bedside; - Constitutional Vitals: Temp Pulse Resp BP Pulse Ox 97.8 F 76 22 157/78 98 11/07/17 15:40 11/07/17 15:40 11/07/17 15:40 11/07/17 15:40 11/07/17 15:40 General appearance: Present: cooperative (somnolent and irritable when awake), A &O X 1 (very somnolent), underweight. Absent: answers questions appropriately - Respiratory Respiratory exam: Present: CTAB. Absent: accessory muscle use, rales, rhonchi, wheezes - Cardiovascular Cardiovascular exam: Present: RRR, +S1, +S2. Absent: diastolic murmur, gallop, rubs, systolic murmur - GI/Abdominal GI/Abdominal exam: Present: normal bowel sounds, soft, no peritoneal signs. Absent: distended, tenderness - Extremities Exam Extremities exam: Present: full ROM (decreased in B/L LE), warm, radial pulses palpable and symmetrical. Absent: calf tenderness, cyanotic, pedal edema Additional comments: left foot in surgical boot and wound vac in place, minimal drainage - Neurological Exam Neurological exam: Present: altered, no focal deficits. Absent: pronater drift , facial droop, speech deficit Internal Medicine: Result - Labs CBC & Chem 7: 11/06/17 05:50 11/06/17 05:50 - ABG Interpretation ABG results: PT/INR, D-dimer PT 12.2 Seconds (9.4-12.1) H 10/31/17 17:22 - VTE Documentation of Mechanical Device: Intermittent pneumatic compression device Consult Discharge Plan - Plan Referrals: NONE,PCP [Primary Care Provider] - Saskia Joseph [Family Provider] -
[2017-11-08 05:34] LABS: Basophils % 0.5 %; Hematocrit 27.1 % (37.5-50.1); Hemoglobin 8.9 g/dL (12.9-16.9); Immature Granulocytes % 0.5 % (0-4); Lymphocytes # 1.2 K/mcL (0.6-4.6); Lymphocytes % 26.7 %; Mean Corpuscular HGB Conc 32.8 g/dL (31.6-35.5); Mean Corpuscular Hemoglobin 28.3 pg (28.0-33.3); Mean Platelet Volume 10.4 fL (9.4-12.4); Monocytes # 0.3 K/mcL (0.0-1.3); Monocytes % 6.7 %; Neutrophils # 2.8 K/mcL (1.6-8.9); Platelet Count 199 K/mcL (140-400); Red Blood Count 3.15 M/mcL (4.19-5.50); Red Cell Distribution Width 14.7 % (11.5-14.5); Segmented Neutrophils % 65.6 %
[2017-11-08] MEDS: Insulin LISPRO 300 UNITS/3 ML VIAL SQ SCH ×4 (07:58→20:35)
[2017-11-08] MEDS: Ascorbic Acid 500 MG TABLET PO SCH ×2 (08:16→20:35)
[2017-11-08] MEDS: MetroNIDAZOLE 500 MG/100 ML 500 MG/100 ML BAG IVPB SCH ×3 (08:16→23:56)
[2017-11-08] MEDS: Multivit/Ca/Min/Fe/FA 1 TAB TABLET PO SCH (08:16)
[2017-11-08] MEDS: Zinc Sulfate 220 MG CAPSULE PO SCH (08:16)
[2017-11-08] MEDS: D5% in 0.9% NACL 1,000 ML IVC SCH (08:17)
[2017-11-08] MEDS: *HR* OxyCODONE Immed Rel 5 MG TABLET PO PRN ×2 (08:17→16:01)
[2017-11-08 09:07] LABS: BUN/Creatinine Ratio 21 (6-26); Blood Urea Nitrogen 15 mg/dL (8-23); Calcium 7.3 mg/dL (8.6-10.3); Carbon Dioxide 28 mEq/L (23-29); Chloride 104 mEq/L (98-107); Glucose 128 mg/dL (70-105); Osmolality,Calculated 288 (280-300); Potassium 3.5 mEq/L (3.5-5.1); Sodium 138 mEq/L (136-145); eGFR For African Americans > 60 (> 60); eGFR For Non-African Americans > 60 (> 60)
--- NOTE | 2017-11-08 09:38 | Infectious Disease Progress No ---
Date of Encounter: 11/08/17 Time of Encounter: 09:36 - Assessment and Plan (1) Sepsis Current Visit: Yes Status: Acute The patient had two SIRS criteria. Likely secondary to influenza A. Blood cultures drawn 11/05/17 are NGTD x 2 sets. Lactic acid was normal. Improved. WBC remains normal. Afebrile x 24 hours. Qualifiers: Sepsis type: sepsis due to unspecified organism Qualified Code(s): A41.9 - Sepsis, unspecified organism (2) Influenza A Current Visit: Yes Status: Acute Continue to have fevers overnight. Influenza PCR positive. Continue Tamiflu 75mg PO BID x 5 days. Continue supportive care. (3) Achilles tendon infection Current Visit: Yes Status: Acute Location: Left foot. Causative organism: P. mirabilis and E. coli. Etiology unclear. The details surrounding the cause and duration of the ulcer are unclear. XR of the left kacey showed findings consistent with OM. ESR 57, CRP 126. Podiatry consulted and following. Status post I&D of the left leg with relief/ debridement of the Achilles tendon as well as biopsy of the Achilles and calcaneus and debridement of the left heel ulcer November [address] Cortes. Operative note reviewed. No evidence of bony changes, but pus was in contact with the bone. Intraoperative cultures are growing P. mirabilis and anaerobes. Pathology was negative for osteomyelitis. Blood cultures drawn 10/31/17 and 11/01/17 are negative x 4 sets. Continue wound care and activity restrictions per the podiatry team. Continue Rocephin 2 grams IV daily. Start Flagyl 500mg PO TID. Duration of treatment depends on the clinical picture, but likely 4-6 weeks. Will need weekly CBC, BUN/Cr, ESR, CRP. Will need weekly IV care. Follow up with ID 2 weeks post-discharge. (4) Left foot infection Current Visit: Yes Status: Acute Location: Left calcaneus. Causative organism: E. coli and P. mirabilis based on swab culture. Likely secondary to diabetic foot ulcer. X-ray of the left ankle showed findings consistent with OM, but intra-op no bony changes were noted. Status post I & D of the left foot. Pus noted adjacent to the bone and the Achilles tendon. Intra-op cultures growing P. mirabilis. Pathology negative for osteomyelitis. Continue antibiotics as above. (5) Pneumonia Current Visit: Yes Status: Suspected CXR completed in the ED showed findings suspicios for right basilar PNA. Clinically, the patient does not appear to have PNA. Repeat CXR showed persistent right basilar opacity, possibly pneumonitis, but this could also be related to the patient's influenza. Speech therapy evaluation negative for aspiration. CT chest shows small bilateral pleural effusions with overlying airspace consolidations, likely a combination of atelectasis and pneumonia. Continue antibiotics as above. Qualifiers: Pneumonia type: due to unspecified organism Laterality: right Lung location: lower lobe of lung Qualified Code(s): J18.1 - Lobar pneumonia, unspecified organism (6) Diabetic foot ulcer Current Visit: Yes Status: Acute Etiology unclear. Location: Left calcaneus. Wound care per the podiatry team. 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 HgbA1C 6.5 in June 2017. Recommend aggressive glucose monitoring and control to promote wound healing and prevent re-infection. 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 2 diabetes mellitus with foot ulcer; L97.509 - Non-pressure chronic ulcer of other part of unspecified foot with unspecified severity; L97.509 - Non-pressure chronic ulcer of other part of unspecified foot with unspecified severity; L97.509 - Non-pressure chronic ulcer of other part of unspecified foot with unspecified severity; L97.509 - Non-pressure chronic ulcer of other part of unspecified foot with unspecified severity (8) COPD (chronic obstructive pulmonary disease) Current Visit: Yes Status: Chronic Qualifiers: COPD type: emphysema Emphysema type: other Qualified Code(s): J43.8 - Other emphysema (9) Dementia Current Visit: Yes Status: Chronic Poor PO intake and worsening mental status per the patient's daughter. Consider nutritional and Palliative care consultation. Discussed with Dr. De La Vega. Qualifiers: Dementia type: Alzheimer's disease Alzheimer's disease onset: unspecified onset Dementia behavioral disturbance: without behavioral disturbance Qualified Code(s): G30.9 - Alzheimer's disease, unspecified; F02.80 - Dementia in other diseases classified elsewhere without behavioral disturbance; F02.80 - Dementia in other diseases classified elsewhere without behavioral disturbance; F02.80 - Dementia in other diseases classified elsewhere without behavioral disturbance (10) Hypertension Current Visit: Yes Status: Chronic Qualifiers: Hypertension type: essential hypertension Qualified Code(s): I10 - Essential (primary) hypertension (11) Constipation Current Visit: Yes Status: Acute There has not been a bowel movement documented since 11/01/17 and nursing is not sure when the last time the patient had a bowel movement. Consider bowel regimen. Qualifiers: Constipation type: unspecified constipation type Qualified Code(s): K59.00 - Constipation, unspecified - Subjective Interval history: Patient seen and examined. No acute events noted overnight. Patient sitting up in bed, more conversant this morning, but declines breakfast. Denies fevers, chills, or rigors. Denies chest pain or shortness of breath. Moist cough noted during exam. Denies nausea, vomiting, or diarrhea. Discussed with nursing, no BM documented in several days. Patient incontinent of urine via Attends. Denies abdominal pain or urinary complaints. Denies oral thrush or skin lesions. Infect Dis PN-Objective Data - Labs CBC & Chem 7: 11/08/17 04:06 11/08/17 04:00 Labs: Laboratory Results - last 24 hr 11/06/17 11/07/17 11/07/17 21:04 09:47 12:04 WBC RBC Hgb Hct MCV MCH MCHC RDW Plt Count MPV Immature Gran % Seg Neutrophils % Lymphocytes % Monocytes % Eosinophils % Basophils % Neutrophils # Lymphocytes # Monocytes # Eosinophils # Basophils # Sodium Potassium Chloride Carbon Dioxide BUN Creatinine Est GFR ( Amer) Est GFR (Non-Af Amer) BUN/Creatinine Ratio Glucose POC Glucose 105 H 80 78 Calculated Osmolality Calcium 11/07/17 11/07/17 11/08/17 15:40 21:16 04:00 WBC RBC Hgb Hct MCV MCH MCHC RDW Plt Count MPV Immature Gran % Seg Neutrophils % Lymphocytes % Monocytes % Eosinophils % Basophils % Neutrophils # Lymphocytes # Monocytes # Eosinophils # Basophils # Sodium 138 Potassium 3.5 Chloride 104 Carbon Dioxide 28 BUN 15 Creatinine 0.70 Est GFR ( Amer) > 60 Est GFR (Non-Af Amer) > 60 BUN/Creatinine Ratio 21 Glucose 128 H POC Glucose 80 201 H Calculated Osmolality 288 Calcium 7.3 L 11/08/17 11/08/17 04:06 07:27 WBC 4.3 RBC 3.15 L Hgb 8.9 L Hct 27.1 L MCV 86.0 MCH 28.3 MCHC 32.8 RDW 14.7 H Plt Count 199 MPV 10.4 Immature Gran % 0.5 Seg Neutrophils % 65.6 Lymphocytes % 26.7 Monocytes % 6.7 Eosinophils % 0.0 Basophils % 0.5 Neutrophils # 2.8 Lymphocytes # 1.2 Monocytes # 0.3 Eosinophils # 0.0 Basophils # 0.0 Sodium Potassium Chloride Carbon Dioxide BUN Creatinine Est GFR ( Amer) Est GFR (Non-Af Amer) BUN/Creatinine Ratio Glucose POC Glucose 111 H Calculated Osmolality Calcium Cultures: Cultures 11/02/17 09:37 Anaerobic Culture - Preliminary Left Foot Prevotella bivia Anaerobic Gram Negative Jordy#2 Prevotella oralis 11/01/17 15:19 Blood Culture - Final Peripheral Venipuncture No growth. 11/01/17 15:09 Blood Culture - Final Peripheral Venipuncture No growth. 11/05/17 12:15 Blood Culture - Preliminary Peripheral Venipuncture No growth. 11/05/17 12:15 Blood Culture - Preliminary Peripheral Venipuncture No growth. 11/02/17 09:48 Surgical Biopsy Culture - Final Left Foot 11/05/17 14:15 Legionella Antigen - Final Urine,Clean Catch Streptococcus pneumoniae Antigen (M - Final 11/02/17 09:48 Wound Culture - Final Left Foot Proteus mirabilis Serology 11/05/17 Range/Units 11:35 Influenza Type A (PCR) Positive A (Negative) Influenza Type B (PCR) Negative (Negative) - Impressions Impressions Chest CT 11/07/17 16:30 IMPRESSION: 1. Small bilateral pleural effusions with overlying airspace consolidations, likely a combination of atelectasis and pneumonia. 2. Mild mediastinal lymphadenopathy, which is most likely reactive. 3. Severe coronary artery disease. D/ / Jin Garcia MD / Jin Garcia MD Interpreting Provider: Jin Garcia MD Exam - Constitutional Vitals: Temp Pulse Resp BP Pulse Ox 98.3 F 74 14 121/67 96 11/08/17 07:23 11/08/17 07:23 11/08/17 07:23 11/08/17 07:23 11/08/17 07:23 General appearance: average body habitus, cooperative, no acute distress - Head Head exam: Present: atraumatic, normal inspection, normocephalic - Eye Eye exam: Present: EOMI, normal appearance, PERRL Pupils: Present: normal accommodation - ENT ENT exam: Present: mucous membranes dry - Neck Neck exam: Present: normal inspection - Respiratory Respiratory exam: Present: rhonchi (Throughout). Absent: rales, respiratory distress, wheezes - Cardiovascular Cardiovascular exam: Present: RRR, +S1, +S2 - GI/Abdominal GI/Abdominal exam: Present: normal bowel sounds, soft. Absent: distended, tenderness - Extremities Exam Extremities exam: Present: normal inspection. Absent: joint swelling, pedal edema, tenderness Additional comments: Left foot dressing with heel protector noted. - Neurological Exam Neurological exam: Present: alert, no focal deficits. Absent: oriented X3 ( Oriented to person and place. Unsure why he is in the hospital), facial droop, speech deficit - Psychiatric Psychiatric exam: Present: flat affect, normal mood - Skin Skin exam: Present: dry, intact, normal color, warm - VTE Documentation of Mechanical Device: Intermittent pneumatic compression device Consult Discharge Plan - Plan Referrals: NONE,PCP [Primary Care Provider] - Saskia Joseph [Family Provider] - - Attending Attestation I examined this patient and my medical decision-making was reviewed with the Resident Physician. I agree with the documented findings, disposition and treatment plan as described except to the extent set forth below.
[2017-11-08 14:29] LABS: Folate 12.6 ng/mL (3.0-16.0)
--- NOTE | 2017-11-08 14:55 | Consult Note ---
Date of Encounter: 11/08/17 Time of Encounter: 14:47 Assessment & Recommendation (1) Dementia Current visit: Yes Status: Chronic Assessment & Recommendation: No evidence of Schizophrenia on exam but client was only minimally cooperative with interview. Did not present as psychotic but definitely not oriented. Suspect Dementia diagnosis is accurate. Does not appear able to care for self. Likely needs discharged to a correction facility when medically cleared. Recommend getting a POA or guardian if not already in place. Client does not appear to be able to make his own medical decisions. Notes indicate client has not had any behavioral disturbances so would avoid antipsychotics and sedating meds if possible. Qualifiers: Dementia type: Alzheimer's disease Alzheimer's disease onset: unspecified onset Dementia behavioral disturbance: without behavioral disturbance Qualified Code(s): G30.9 - Alzheimer's disease, unspecified; F02.80 - Dementia in other diseases classified elsewhere without behavioral disturbance; F02.80 - Dementia in other diseases classified elsewhere without behavioral disturbance; F02.80 - Dementia in other diseases classified elsewhere without behavioral disturbance History of Present Illness Requesting Physician: Emmy De La Vega MD Reason for consult: dementia vs schizophrenia History of present illness: Mr. Crow is a 76 year old male who has had a lengthy hospitalization for multiple medical problems. Documentation suggests poor PO intake and cognitive decline. Daughter apparently suggested client has been diagnosed with "mild Schizophrenia" in the past. No one present in the room when this fiction and nonfiction writer prose spoke with client. He denied having a diagnosis of Schizophrenia. He denied having any mental health diagnoses. He denied depression. He denied SI/HI/AH/VH. However, he was not a reliable historian. He did not know the name of the hospital he is in. He did not know the date. He knew it was winter but would not even guess the month. He did not know the president and guessed it was "[facility]." He stated he lives with his daughter but records suggest he lives alone and that daughter has not seen him in the last three months. Dementia diagnosis seems accurate. No records of psych hospitalizations or treatment in the system. No family present to provide any history. CC: Emmy De La Vega MD Past Med Surg Social Fam HX - Past Medical History Medical history: COPD, dementia, diabetes, hypertension, other - Past Psychiatric History Psychiatric history: Reports: no psych history Family psychiatric history: Unknown Family History of Suicide: Unknown - Social History Smoking Status: Current some day smoker Smokeless Tobacco Status: Yes (Chew) Alcohol use: none Drug use: none - Family History Father Living Status: Hx Family Endocrine Disorder: Yes (type 2 diabetes) Medications & Allergies No Known Home Drugs 10/31/17 [History] 3 Allergy/AdvReac Type Severity Reaction Status Date / Time No Known Allergies Allergy Verified 10/31/17 16:58 Review of Systems Constitutional: Denies: fever, chills, weakness, weight change Eyes: Denies: eye pain, vision change Ears, Nose, Throat: Denies: ear pain, throat pain, dental pain, hearing loss, congestion Cardiovascular: Denies: chest pain, palpitations, dyspnea on exertion Respiratory: Denies: cough, dyspnea, wheezes Gastrointestinal: Denies: abdominal pain, nausea, vomiting, diarrhea, constipation Genitourinary male: Denies: urgency, dysuria, frequency, genital lesions Genitourinary female: Denies: urgency, dysuria, frequency, abnormal menses, dyspareunia Musculoskeletal: Denies: joint swelling, joint pain Integumentary: Denies: rash, lesions, pruritus Neurological: Denies: headache, weakness, numbness, memory loss Endocrine: Denies: fatigue, heat or cold intolerance Hematologic/Lymphatic: Denies: easy bruising, lymphadenopathy Allergic/Immunologic: Denies: urticaria, itchy eyes Mental Status Exam Patient orientation: Yes Person Level of alertness: Sedated Patient appearance: Unkempt, Disheveled Behavior: withdrawn Psychomotor activity: Slowed Eye contact: Minimal Contact Mood description: Other Affect description: blunted Speech pattern: Slowed Speech volume: Soft/Quiet Thought process: Slowed Thinking Thought content: No Suicidal ideation, No Homicidal ideation, No Overt delusions Perceptual disturbances: No Auditory hallucinations, No Visual hallucinations Attention span: Unable to Sustain Attention Memory description: Immediate Intact, Recent Impaired, Remote Impaired Patient reliability: Not Reliable Historian Intelligence estimate: Average Judgment: Limited Insight: Minimal Results - Vital Signs Vital signs: Temp Pulse Resp BP Pulse Ox 98.3 F 77 14 124/65 97 11/08/17 11:39 11/08/17 11:39 11/08/17 11:39 11/08/17 11:39 11/08/17 11:39 - Labs Labs: Laboratory Last Values WBC 4.3 K/mcL (4.3-11.1) 11/08/17 04:06 RBC 3.15 M/mcL (4.19-5.50) L 11/08/17 04:06 Hgb 8.9 g/dL (12.9-16.9) L 11/08/17 04:06 Hct 27.1 % (37.5-50.1) L 11/08/17 04:06 MCV 86.0 fL (83.0-100.0) 11/08/17 04:06 MCH 28.3 pg (28.0-33.3) 11/08/17 04:06 MCHC 32.8 g/dL (31.6-35.5) 11/08/17 04:06 RDW 14.7 % (11.5-14.5) H 11/08/17 04:06 Plt Count 199 K/mcL (140-400) 11/08/17 04:06 MPV 10.4 fL (9.4-12.4) 11/08/17 04:06 Immature Gran % 0.5 % (0-4) 11/08/17 04:06 Seg Neutrophils % 65.6 % 11/08/17 04:06 Lymphocytes % 26.7 % 11/08/17 04:06 Monocytes % 6.7 % 11/08/17 04:06 Eosinophils % 0.0 % 11/08/17 04:06 Basophils % 0.5 % 11/08/17 04:06 Neutrophils # 2.8 K/mcL (1.6-8.9) 11/08/17 04:06 Lymphocytes # 1.2 K/mcL (0.6-4.6) 11/08/17 04:06 Monocytes # 0.3 K/mcL (0.0-1.3) 11/08/17 04:06 Eosinophils # 0.0 K/mcL (0.0-0.6) 11/08/17 04:06 Basophils # 0.0 K/mcL (0.0-0.2) 11/08/17 04:06 ESR 57 mm/hr (0-10) H 10/31/17 17:22 PT 12.2 Seconds (9.4-12.1) H 10/31/17 17:22 INR 1.1 10/31/17 17:22 APTT 28.9 Seconds (26.0-36.0) 10/31/17 22:56 Sodium 138 mEq/L (136-145) 11/08/17 04:00 Potassium 3.5 mEq/L (3.5-5.1) 11/08/17 04:00 Chloride 104 mEq/L (98-107) 11/08/17 04:00 Carbon Dioxide 28 mEq/L (23-29) 11/08/17 04:00 BUN 15 mg/dL (8-23) 11/08/17 04:00 Creatinine 0.70 mg/dL (0.70-1.30) 11/08/17 04:00 Est GFR ( Amer) > 60 (> 60) 11/08/17 04:00 Est GFR (Non-Af Amer) > 60 (> 60) 11/08/17 04:00 BUN/Creatinine Ratio 21 (6-26) 11/08/17 04:00 Glucose 128 mg/dL (70-105) H 11/08/17 04:00 POC Glucose 111 (58-89) H 11/08/17 11:42 Calculated Osmolality 288 (280-300) 11/08/17 04:00 Lactic Acid 0.4 mmol/L (0.5-2.2) L 11/05/17 12:15 Calcium 7.3 mg/dL (8.6-10.3) L 11/08/17 04:00 Phosphorus 2.6 mg/dL (2.7-4.5) L 11/01/17 04:58 Magnesium 1.9 mg/dL (1.6-2.6) 11/06/17 05:50 Total Bilirubin 0.5 mg/dL (0.3-1.0) 10/31/17 17:22 AST 11 Units/L (13-39) L 10/31/17 17:22 ALT 9 Units/L (7-52) 10/31/17 17:22 Alkaline Phosphatase 48 Units/L (34-104) 10/31/17 17:22 C-Reactive Protein 126 mg/L (Less than 10) H 10/31/17 17:22 Serum Total Protein 6.5 g/dL (6.4-8.9) 10/31/17 17:22 Albumin 2.8 g/dL (3.5-5.7) L 10/31/17 17:22 Globulin 3.7 g/dL (2.4-3.5) H 10/31/17 17:22 Albumin/Globulin Ratio 0.8 (1.1-2.2) L 10/31/17 17:22 Vitamin B12 426 pg/mL (250-1100) 11/08/17 13:26 Folate 12.6 ng/mL (3.0-16.0) 11/08/17 13:26 TSH 2.946 mcIU/mL (0.340-5.600) 11/08/17 13:26 Influenza Type A (PCR) Positive (Negative) A 11/05/17 11:35 Influenza Type B (PCR) Negative (Negative) 11/05/17 11:35 - Impressions Impressions Chest CT 11/07/17 16:30 IMPRESSION: 1. Small bilateral pleural effusions with overlying airspace consolidations, likely a combination of atelectasis and pneumonia. 2. Mild mediastinal lymphadenopathy, which is most likely reactive. 3. Severe coronary artery disease. D/ / Jin Garcia MD / Jin Garcia MD Interpreting Provider: Jin Garcia MD Consult Discharge Plan - Plan Referrals: NONE,PCP [Primary Care Provider] - Saskia Joseph [Family Provider] -
--- NOTE | 2017-11-08 15:46 | Internal Med Progress Note ---
Date of Encounter: 11/08/17 Time of Encounter: 12:15 - Assessment and plan (1) Dementia Current Visit: Yes Status: Chronic Assessment and plan: Confusion and disorientation, likely underlying dementia. Serum TSH, vitamin B12 and folate levels within normal limits. Psychiatric evaluation appreciated , agree with this diagnosis. Patient lacks decision-making capacity at this time. Cannot care for self at home, mostly nonambulatory. Continue supportive care and fall precautions. oil well services supervisor on board, plan for transfer to ECF/usp. Patient has no power of assistant prosecuting attorney/living will, daughter is his next of kin. According to daughter and patient's wishes, will change his CODE STATUS to DNR comfort care arrest/DNI at this time. There has been concern regarding poor appetite during this hospitalization, appetite is currently improving and this is probably due to underlying dementia and progressive. No urgent indication for feeding tube at this time. Bedside swallow evaluation was completed, patient is cleared for soft diet and thin liquids. Qualifiers: Dementia type: Alzheimer's disease Alzheimer's disease onset: unspecified onset Dementia behavioral disturbance: without behavioral disturbance Qualified Code(s): G30.9 - Alzheimer's disease, unspecified; F02.80 - Dementia in other diseases classified elsewhere without behavioral disturbance; F02.80 - Dementia in other diseases classified elsewhere without behavioral disturbance; F02.80 - Dementia in other diseases classified elsewhere without behavioral disturbance (2) Influenza A Current Visit: Yes Status: Acute Assessment and plan: Rapid influenza testing positive for influenza A. Start droplet precautions, on Tamiflu per ID; Supportive care. (3) Acute osteomyelitis of calcaneum Current Visit: Yes Status: Acute Assessment and plan: Podiatry was consulted, patient underwent incision and drainage of left foot, release and debridement of the Achilles tendon, biopsy of calcaneus and Achilles tendon, debridement of left heel ulceration, on 11/02/17. Continue local wound care and dressings, wound vac per podiatry recommendations. Patient was initially started on vancomycin and Zosyn. Superficial and operative wound culture grew Proteus mirabilis, Escherichia coli. Preliminary anaerobic cultures grow Prevotella sp and another GNR- continue Flagyl; Infectious diseases was consulted, antibiotics currently changed to IV Rocephin. Patient ultimately requires long-term IV ejhpyersffh-9-6 weeks for underlying osteomyelitis. oil well services supervisor on board for possible ECF placement due to underlying dementia and bedbound status. 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 Has been on IV Zosyn for 4 days, then, changed to IV Rocephin- day 3. Blood cultures from October 31 and November 01 are negative. Urine legionella and strep pneumococcus antigens negative. Continue supportive care and supplemental oxygen. Serum lactic acid level normal. Concern for possible aspiration due to dementia- consulted speech therapy, underwent bedside swallow evaluation, cleared for soft diet and thin liquids. Qualifiers: Pneumonia type: due to unspecified organism Laterality: right Lung location: lower lobe of lung Qualified Code(s): J18.1 - Lobar pneumonia, unspecified organism (6) COPD (chronic obstructive pulmonary disease) Current Visit: Yes Status: Chronic Qualifiers: COPD type: emphysema Emphysema type: other Qualified Code(s): J43.8 - Other emphysema (7) Diabetes Current Visit: Yes Status: Chronic Assessment and plan: Continues to have low normal blood sugars due to poor oral intake, now improving around 111. Continue Accu-Chek blood glucose monitoring. 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 mellitus complication status: with skin complications Diabetes mellitus complication detail: with foot ulcer Diabetes mellitus detention insulin use: without terminal press operator use Qualified Code( s): E11.621 - Type 2 diabetes mellitus with foot ulcer; L97.509 - Non-pressure chronic ulcer of other part of unspecified foot with unspecified severity; L97.509 - Non-pressure chronic ulcer of other part of unspecified foot with unspecified severity; L97.509 - Non-pressure chronic ulcer of other part of unspecified foot with unspecified severity; L97.509 - Non-pressure chronic ulcer of other part of unspecified foot with unspecified severity (8) Hypertension Current Visit: Yes Status: Chronic Qualifiers: Hypertension type: essential hypertension Qualified Code(s): I10 - Essential (primary) hypertension - Subjective Interval history: Unable to provide history due to dementia. Oriented to self, reports he is in the hospital, but does not know which one or the reason for admission; reports he has no family; when asked about his daughter, he agrees; eating better today ; - Constitutional Vitals: Temp Pulse Resp BP Pulse Ox 98.3 F 77 14 124/65 97 11/08/17 11:39 11/08/17 11:39 11/08/17 11:39 11/08/17 11:39 11/08/17 11:39 General appearance: Present: cooperative, A&O X 2, underweight. Absent: answers questions appropriately - Respiratory Respiratory exam: Present: CTAB. Absent: accessory muscle use, rales, rhonchi, wheezes - Cardiovascular Cardiovascular exam: Present: RRR, +S1, +S2. Absent: diastolic murmur, gallop, rubs, systolic murmur - GI/Abdominal GI/Abdominal exam: Present: normal bowel sounds, soft, no peritoneal signs. Absent: distended, tenderness Internal Medicine: Result - Labs CBC & Chem 7: 11/08/17 04:06 11/08/17 04:00 Labs: Short CBC 11/08/17 Range/Units 04:06 WBC 4.3 (4.3-11.1) K/mcL Hgb 8.9 L (12.9-16.9) g/dL Hct 27.1 L (37.5-50.1) % Plt Count 199 (140-400) K/mcL Neutrophils # 2.8 (1.6-8.9) K/mcL BMP 11/08/17 04:00 Sodium 138 Potassium 3.5 Chloride 104 Carbon Dioxide 28 BUN 15 Creatinine 0.70 Glucose 128 H Calcium 7.3 L - ABG Interpretation ABG results: PT/INR, D-dimer PT 12.2 Seconds (9.4-12.1) H 10/31/17 17:22 - Impressions Impressions Chest CT 11/07/17 16:30 IMPRESSION: 1. Small bilateral pleural effusions with overlying airspace consolidations, likely a combination of atelectasis and pneumonia. 2. Mild mediastinal lymphadenopathy, which is most likely reactive. 3. Severe coronary artery disease. D/ / Jin Garcia MD / Jin Garcia MD Interpreting Provider: Jin Garcia MD - VTE Documentation of Mechanical Device: Intermittent pneumatic compression device Consult Discharge Plan - Plan Referrals: NONE,PCP [Primary Care Provider] - Saskia Joseph [Family Provider] -
[2017-11-08] MEDS: cefTRIAXone 2,000 MG in Water for inj. (sterile) 20 ML 20 ML IVPB SCH (16:01)
[2017-11-09 07:51] VITALS: BP 122/62
[2017-11-09] MEDS: Insulin LISPRO 300 UNITS/3 ML VIAL SQ SCH (08:36)
[2017-11-09] MEDS: Zinc Sulfate 220 MG CAPSULE PO SCH (08:41)
[2017-11-09] MEDS: Multivit/Ca/Min/Fe/FA 1 TAB TABLET PO SCH (08:41)
[2017-11-09] MEDS: MetroNIDAZOLE 500 MG/100 ML 500 MG/100 ML BAG IVPB SCH (08:41)
[2017-11-09] MEDS: Ascorbic Acid 500 MG TABLET PO SCH (08:41)
--- NOTE | 2017-11-09 09:37 | Discharge Summary ---
- NOTES TO OUTPATIENT PROVIDER Notes to Outpatient Provider: F/up weekly CBC, BUN/Cr, ESR, CRP; on IV Rocephin for 4-6 weeks; also has dementia; daughter may need to obtain guardianship; Orders not resulted at time of discharge: Pending orders 11/05/17 12:15 Culture,Blood [BC] Stat Culture,Blood,Additional [BC] Stat 11/06/17 10:33 Bedside Swallowing Evaluation [EVAL] Routine Pathology 11/02/17 16:20 Surgical Pathology [PTH] Routine Comment: Department: Surgical Pathology Specimen: Has been collected Specimen placed in fixative?: Yes Tissue Removal Time:: 09:40 Tissue Fixative Time:: 09:50 DATE MAN:: 11/02/17 PRE-OP DIAGNOSIS:: Infection left calcaneus and Achilles tendon with ulceration POST-OP DIAGNOSIS:: Pathology pending SPECIMEN & SITE: 1: Achilles Tendon, Left Date of Encounter: 11/09/17 Time of Encounter: 09:35 - Discharge Diagnosis (1) Dementia Priority: Primary Status: Chronic Qualifiers: Dementia type: Alzheimer's disease Alzheimer's disease onset: unspecified onset Dementia behavioral disturbance: without behavioral disturbance Qualified Code(s): G30.9 - Alzheimer's disease, unspecified; F02.80 - Dementia in other diseases classified elsewhere without behavioral disturbance; F02.80 - Dementia in other diseases classified elsewhere without behavioral disturbance; F02.80 - Dementia in other diseases classified elsewhere without behavioral disturbance (2) Influenza A Priority: Primary Status: Acute (3) Acute osteomyelitis of calcaneum Priority: Primary Status: Acute Qualifiers: Laterality: left Qualified Code(s): M86.172 - Other acute osteomyelitis, left ankle and foot (4) Diabetic foot ulcer Priority: Primary Status: Acute Qualifiers: Diabetic foot ulcer location: heel Diabetes mellitus type: type 2 Laterality: left Non-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 Qualified Code(s): E11.621 - Type 2 diabetes mellitus with foot ulcer; L97.424 - 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; L97.424 - Non-pressure chronic ulcer of left heel and midfoot with necrosis of bone; L97.424 - Non-pressure chronic ulcer of left heel and midfoot with necrosis of bone; L97.424 - Non-pressure chronic ulcer of left heel and midfoot with necrosis of bone (5) Pneumonia Priority: Primary Status: Suspected Qualifiers: Pneumonia type: due to unspecified organism Laterality: right Lung location: lower lobe of lung Qualified Code(s): J18.1 - Lobar pneumonia, unspecified organism (6) COPD (chronic obstructive pulmonary disease) Priority: Secondary Status: Chronic Qualifiers: COPD type: emphysema Emphysema type: other Qualified Code(s): J43.8 - Other emphysema (7) Diabetes Priority: Secondary Status: Chronic 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 mellitus complication status: with skin complications Diabetes mellitus complication detail: with foot ulcer Diabetes mellitus buttermaker insulin use: without buttermaker use Qualified Code( s): E11.621 - Type 2 diabetes mellitus with foot ulcer; L97.509 - Non-pressure chronic ulcer of other part of unspecified foot with unspecified severity; L97.509 - Non-pressure chronic ulcer of other part of unspecified foot with unspecified severity; L97.509 - Non-pressure chronic ulcer of other part of unspecified foot with unspecified severity; L97.509 - Non-pressure chronic ulcer of other part of unspecified foot with unspecified severity (8) Hypertension Priority: Secondary Status: Chronic Qualifiers: Hypertension type: essential hypertension Qualified Code(s): I10 - Essential (primary) hypertension Hospital course: Mr. Crow is a 76 year old male with the above medical problems, who was initially admitted with left foot infection. Left foot x-ray showed erosive change in posterior calcaneus consistent with osteomyelitis. Patient was started on broad-spectrum IV antibiotics-vancomycin and Zosyn. Podiatry was consulted, underwent incision and drainage and debridement of left heel ulcer on 11/02/2017. Blood cultures remained negative. Superficial and intraoperative wound cultures grew Proteus, Escherichia coli, and anaerobes. Infectious diseases was consulted and patient was later switched to IV Rocephin and by mouth Flagyl. He was noted to have fever spikes with tachycardia and tachypnea during this hospitalization. Septic workup was repeated including respiratory viral panel, which was positive for influenza A and he was started on Tamiflu, with improvement. Chest x-ray showed possible right lung opacity, no other clinical evidence of pneumonia. Swallow evaluation was completed, cleared for thin liquids and soft diet. Patient is noted to be confused and disoriented since admission. He likely has undiagnosed dementia, per previous admission records. I have discussed with his daughter, Eloisa, patient was living alone prior to this admission, she thought patient may have had schizophrenia. Psychiatric evaluation was completed, a grade with possible dementia, lacks decision-making capacity at this time, cannot take care of himself, would benefit from placement in extended care facility. Daughter was encouraged to obtain guardianship in the future. Patient is currently medically stable for discharge on long-term IV antibiotics , for 4-6 weeks with ID follow-up. Discharge discussed with: patient, family - Time Spent with Patient Total time spent providing and/or coordinating discharge services: Greater than 30 minutes (50 min) - Discharge Medications Prescriptions: OxyCODONE Immed Rel [Roxicodone 5 MG] 10 mg PO Q6HR PRN 7 Days #15 tablet PRN Reason: Severe Pain cefTRIAXone [Rocephin] 2,000 mg IVPB DAILY #21 vial metroNIDAZOLE [Flagyl] 500 mg PO TID #78 tablet Oseltamivir [Tamiflu] 75 mg PO BID #3 capsule Home Medications: Ascorbic Acid [Vitamin C] 500 mg PO BID tablet 11/09/17 [Rx] Multivit/Ca/Min/Fe/FA [Thera M Plus] 1 tab PO DAILY tablet 11/09/17 [Rx] Oseltamivir [Tamiflu] 75 mg PO BID #3 capsule 11/09/17 [Rx] OxyCODONE Immed Rel [Roxicodone 5 MG] 10 mg PO Q6HR PRN 7 Days #15 tablet [Rx] Zinc Sulfate 220 mg PO DAILY capsule 11/09/17 [Rx] cefTRIAXone [Rocephin] 2,000 mg IVPB DAILY #21 vial 11/09/17 [Rx] metroNIDAZOLE [Flagyl] 500 mg PO TID #78 tablet 11/09/17 [Rx] Allergies/Adverse Reactions: 3 Allergy/AdvReac Type Severity Reaction Status Date / Time No Known Allergies Allergy Verified 10/31/17 16:58 Date of admission: 11/01/17 04:56 Primary care physician: PCP NONE Consults: 11/04/17 10:10 Consult to Infectious Diseases [CONS] Routine Consulting Provider: Infectious Disease Ken[facility] Reason for Consult: acute osteomyelitis Time Notified: 10:11 Call Completed: Yes 11/05/17 08:28 Consult to Invasive Line Access Team [CONS] Routine Reason for Consult: home atb Line Type: Midline 11/06/17 10:33 Consult to Nutrition [CONS] Routine Comment: Consulting Provider: NUTRITION Reason for Dietary Consult: Other Other:: Decreased appetite, daughter asking about a peg tube, 11/07/17 16:50 Consult to Psychiatry [CONS] Routine Consulting Provider: Psychiatry Kenzie Reason for Consult: Possible dementia, refuses oral intake, ?schizophrenia Call Completed: Yes Discharging clinician: Emmy De La Vega Anticipated date of discharge: 11/09/17 - Constitutional Vitals: Temp Pulse Resp BP Pulse Ox 98 F 70 22 122/62 85 11/09/17 07:49 11/09/17 07:49 11/09/17 07:49 11/09/17 07:49 11/09/17 03:50 General appearance: Present: cooperative, A&O X 2, underweight. Absent: answers questions appropriately - Cardiovascular Cardiovascular exam: Present: RRR, +S1, +S2. Absent: diastolic murmur, gallop, rubs, systolic murmur - Patient Status Disposition: Transfer SNF Condition: Fair Functional capacity at discharge: bed bound Overall status at discharge: patient is progressing back to baseline - Discharge Instructions Follow Up With: NONE,PCP [Primary Care Provider] - Saskia Joseph [Family Provider] - Additional Instructions: F/up with PCP in 1-2 weeks F/up with ID in 2 weeks F/up with Podiatry in 1 week Wound care and wound vac instructions per Podiatry notes and recommendations - Diet and Activity Activity: as per physical therapy Diet: diabetic diet - VTE Documentation of Mechanical Device: Intermittent pneumatic compression device
--- NOTE | 2017-11-09 09:47 | Physician Discharge Referral ---
ExtendedCare Referral Info Transfer To: [facility] Provider in Charge: Emmy De La Vega Provider in Charge after Transfer: PCP Institutional Level of Care: Skilled - Diagnosis (1) Dementia Priority: Primary Status: Chronic (2) Influenza A Priority: Primary Status: Acute (3) Acute osteomyelitis of calcaneum Priority: Primary Status: Acute (4) Diabetic foot ulcer Priority: Primary Status: Acute (5) Pneumonia Priority: Primary Status: Suspected (6) COPD (chronic obstructive pulmonary disease) Priority: Secondary Status: Chronic (7) Diabetes Priority: Secondary Status: Chronic (8) Hypertension Priority: Secondary Status: Chronic Expected Duration of Placement: 3 weeks Prognosis: Fair Aware of Diagnosis: Family Aware of Prognosis: Family - Transfer Medications Prescriptions: OxyCODONE Immed Rel [Roxicodone 5 MG] 10 mg PO Q6HR PRN 7 Days #15 tablet PRN Reason: Severe Pain cefTRIAXone [Rocephin] 2,000 mg IVPB DAILY #21 vial metroNIDAZOLE [Flagyl] 500 mg PO TID #78 tablet Oseltamivir [Tamiflu] 75 mg PO BID #3 capsule Home Medications: Ascorbic Acid [Vitamin C] 500 mg PO BID tablet 11/09/17 [Rx] Multivit/Ca/Min/Fe/FA [Thera M Plus] 1 tab PO DAILY tablet 11/09/17 [Rx] Oseltamivir [Tamiflu] 75 mg PO BID #3 capsule 11/09/17 [Rx] OxyCODONE Immed Rel [Roxicodone 5 MG] 10 mg PO Q6HR PRN 7 Days #15 tablet [Rx] Zinc Sulfate 220 mg PO DAILY capsule 11/09/17 [Rx] cefTRIAXone [Rocephin] 2,000 mg IVPB DAILY #21 vial 11/09/17 [Rx] metroNIDAZOLE [Flagyl] 500 mg PO TID #78 tablet 11/09/17 [Rx] Allergies/Adverse Reactions: 3 Allergy/AdvReac Type Severity Reaction Status Date / Time No Known Allergies Allergy Verified 10/31/17 16:58 - Respiratory Orders Oxygen / L per min (1-2L/min to maintain O2 sat>88-90%) Smoking Cessation: Smoking cessation has been advised. For more information, call the [employer] Tobacco Quit Line at 7-630-FXVH-NOW. - Advance Directives Code Status: DNR-Arrest/Don't Intubate - Mobility Orders Ambulate - Rehabiliation Orders Rehab Potential: Fair Rehab Orders: ROM Exercises, Evaluation for Physical Therapy, Evaluation for Occupational Therapy - Treatments List/Other: wound care to left foot, wound vac instructions per Podiatry notes - Diet Orders Mechanical Soft, No Concentrated Sweets (diabetic), Cardiac CERTIFICATION: I certify that the transfer of the above named patient to an Extended Care Facility is necessary for the continuing treatment of the diagnosis listed. The above information is true and accurate reflection of patient's current condition. Confidential - Redisclosure prohibited without a patient's written consent.
== END 2017-11-09 11:10 | DRG 628 ==
LOC: 3ANU 16:54 → EMEROO 16:54 → 3ANU 21:22 → SUATTDRO 11-01 04:56
PROVIDERS: ADMIT Internal Medicine; ATTEND Internal Medicine

== ENCOUNTER 2017-11-26 14:15 | Inpatient (IN) ==
[2017-11-26] MEDS ORDERED: 0.9 % Sodium Chloride 1,000 ML IVC ONE (14:22)
--- NOTE | 2017-11-26 14:32 | Emergency Department Note ---
Disposition Clinical Impression: Weakness, Urinary retention Sepsis Qualifiers: Sepsis type: sepsis due to unspecified organism Qualified Code(s): A41.9 - Sepsis, unspecified organism Pneumonia Qualifiers: Pneumonia type: due to unspecified organism Laterality: unspecified laterality Lung location: unspecified part of lung Qualified Code(s): J18.9 - Pneumonia, unspecified organism Osteomyelitis Qualifiers: Osteomyelitis type: unspecified type Osteomyelitis location: ankle Laterality: left Qualified Code(s): M86.9 - Osteomyelitis, unspecified UTI (urinary tract infection) Qualifiers: Urinary tract infection type: site unspecified Hematuria presence: without hematuria Qualified Code(s): N39.0 - Urinary tract infection, site not specified Disposition: Admitted As Inpatient Condition: Fair Referrals: NONE,PCP [Primary Care Provider] - Saskia Joseph [Family Provider] - Forms: ED Satisfaction Letter Time of Disposition: 18:44 General Adult HPI - General Chief complaint: ED Altered Mental Status Stated complaint: possible sepsis Time Seen by Provider: 11/26/17 14:21 Source: family, EMS Mode of arrival: EMS Limitations: altered mental status Nursing Notes Reviewed: Yes Vital Signs Reviewed: Yes - History of Present Illness HPI Narrative: 77-year-old male with a history of dementia, Alzheimer's, diabetes, high blood pressure, status post recent left lower leg orthopedic surgery with osteomyelitis presents for evaluation of concerns of sepsis. Patient does not provide much history. Patient's family at bedside states the patient has had abdominal pain yesterday. Patient denies any nausea vomiting. No diarrhea. No chest pain short of breath. Patient denies any cough. Spoke with [facility] [place] nursing facility who states that the provider there was concerns of sepsis. Nursing staff at [facility] [place] stating the patient has been afebrile. States that the patient has had decreased by mouth intake. Denies any specific cough. States that his mental status is at baseline besides being more sleepy. Still urinating appropriately. The patient's been receiving Rocephin for osteomyelitis of the left lower leg. Pain Scale: 0 - Related Data Home Medications Medication Instructions Recorded Confirmed DiphenhydraMINE [Benadryl] 25 mg PO Q6H PRN 11/26/17 11/26/17 Donepezil HCl [Aricept] 5 mg PO HS 11/26/17 11/26/17 Lisinopril [Zestril] 5 mg PO DAILY 11/26/17 11/26/17 Megestrol Acetate [Megace] 400 mg PO QAM 11/26/17 11/26/17 Multivit/Ca/Min/Fe/FA [Thera M 1 tab PO QAM 11/26/17 11/26/17 Plus] Ondansetron HCl [Zofran] 4 mg PO Q4H PRN 11/26/17 11/26/17 OxyCODONE Immed Rel [Roxicodone 10 10 mg PO Q6H PRN 11/26/17 11/26/17 MG] Oxygen 2 - 3 l NS AD 11/26/17 11/26/17 RisperiDONE [Risperdal] 0.5 mg PO HS 11/26/17 11/26/17 Zinc Sulfate 220 mg PO QAM 11/26/17 11/26/17 Previous Rx's Medication Instructions Recorded Ascorbic Acid [Vitamin C] 500 mg PO BID tablet 11/09/17 cefTRIAXone [Rocephin] 2,000 mg IVPB DAILY #21 vial 11/09/17 metroNIDAZOLE [Flagyl] 500 mg PO TID #78 tablet 11/09/17 Allergies Allergy/AdvReac Type Severity Reaction Status Date / Time No Known Allergies Allergy Verified 10/31/17 16:58 Limitations: ROS unobtainable due to patients medical condition Past Medical History - Past Medical History Source: obtained from family, nursing notes reviewed Medical history: Reports: COPD, dementia, diabetes, hypertension, other Psychiatric history: Reports: no psych history - Social History Smoking Status: Former smoker Smokeless Tobacco Status: Yes (Chew) Alcohol use: Reports: none Drug use: Reports: none Physical Exam - General Limitations: altered mental status General appearance: alert, lethargic - Head Head exam: atraumatic, normocephalic - Eye Eye exam: Present: normal appearance, PERRL, EOMI, scleral icterus - ENT ENT exam: normal exam, mucous membranes dry - Neck Neck exam: Present: normal inspection. Absent: trachea midline - Chest Chest inspection: Present: normal inspection, symmetric chest wall rise - Respiratory Respiratory exam: Present: prolonged expiratory phase, other (diffusely diminished) - Cardiovascular Cardiovascular exam: Present: regular rate, normal rhythm. Absent: systolic murmur - Abdominal Exam Abdominal exam: Present: soft, Non-Tender - Expanded Upper Extremity Exam Forearm/Wrist exam: Present: other (Left upper extremity port in place without surrounding erythema) Vascular exam: Normal: capillary refill - Expanded Lower Extremity Exam Ankle exam: Present: other (Left lower leg healing posterior wound without crepitis, erythema or drainage.) - Back Exam Back exam: Present: normal inspection - Neurological Exam Neurological exam: Present: alert, CN II-XII intact - Skin Skin exam: Present: warm, dry, intact, pallor Course Course Narrative: Patients records reviewed. Patient had labs obtained yesterday which showed a significant leukocytosis from prior evaluations. Concerns of infection. Patient's been treating osteomyelitis of the left leg. Patient does meet sirs criteria patient will get basic labs, CT of the head as well as abdomen and pelvis as the patient's family says he is complaining of abdominal pain. Patient also get a chest x-ray urinalysis lactate. Patient also get blood cultures from the central line as well as peripheral line. Patient is a full code. Patient will be admitted. - Reevaluation(s) Reevaluation #1: Patient's family at bedside. Patient's family stated that the patient is a DNR CC. Paperwork is signed and on the chart. Patient would only want comfort care measures. Patient's urinary bladder is decompressed with gross urine output. Time: 18:44 Vital Signs Temperature 98 F 11/26/17 14:20 Pulse Rate 99 11/26/17 14:20 Respiratory Rate 18 11/26/17 14:20 Blood Pressure 90/57 11/26/17 14:20 O2 Sat by Pulse Oximetry 96 11/26/17 14:20 Temperature 98 F 11/26/17 14:20 Pulse Rate 97 11/26/17 15:45 Respiratory Rate 19 11/26/17 15:45 Blood Pressure 94/53 11/26/17 15:45 O2 Sat by Pulse Oximetry 97 11/26/17 15:45 Oxygen Delivery Oxygen Delivery Nasal Cannula Medical Decision Making - [facility] Narrative Medical decision making narrative: 77-year-old male with multiple comorbid conditions presents for evaluation of possible sepsis. Patient was sent in from formerly [facility] after abnormal labs. Patient does have a history of osteomyelitis treated with surgery in the past. Patient's been receiving 2 g of Rocephin IV. Patient's source of his sepsis multiple sources of concern. Patient does have likely postobstructive renal injury. Patient's urinary bladder was decompressed. Patient's urinalysis shows signs of infection. Start on antibiotics. Patient chest x-ray also suggestive of pneumonia. Patient's coverage for hospital associated pneumonia. Patient's x-ray of his foot shows signs of osteomyelitis. Patient's wound appears to be healing. Discussed the case with the patient's family who stated the patient is a DNR CCA with no intubation or chest compressions. - Lab Data Lab results reviewed: Yes I reviewed the patient's lab results. Result diagrams: 11/26/17 16:23 11/26/17 16:23 Lab Results 11/26/17 11/26/17 11/26/17 Range/Units 15:05 15:31 16:23 WBC (4.3-11.1) K/mcL RBC (4.19-5.50) M/mcL Hgb (12.9-16.9) g/dL Hct (37.5-50.1) % MCV (83.0-100.0) fL MCH (28.0-33.3) pg MCHC (31.6-35.5) g/dL RDW (11.5-14.5) % Plt Count (140-400) K/mcL MPV (9.4-12.4) fL Immature Gran % (0-4) % Seg Neutrophils % % Lymphocytes % % Monocytes % % Eosinophils % % Basophils % % Neutrophils # (1.6-8.9) K/mcL Lymphocytes # (0.6-4.6) K/mcL Monocytes # (0.0-1.3) K/mcL Eosinophils # (0.0-0.6) K/mcL Basophils # (0.0-0.2) K/mcL PT 20.2 H (9.4-12.1) Seconds INR 1.9 Sample Site R Radial ABG pH 7.46 H (7.32-7.45) pH Units ABG pCO2 42 (35-45) mmHg ABG pO2 88 (85-104) mmHg ABG HCO3 30 H (21-27) mEq/L ABG Total CO2 31 H (20-26) mEq/L ABG O2 Saturation 97 (95-98) % ABG Base Excess 5 H (-2 to 3) mEq/L Wero Test Positive O2 Delivery Device Cannula Inspired O2 32.0 (1-15=lpm [id number]=%) Sodium (136-145) mEq/L Potassium (3.5-5.1) mEq/L Chloride (98-107) mEq/L Carbon Dioxide (23-29) mEq/L BUN (8-23) mg/dL Creatinine (0.70-1.30) mg/dL Est GFR ( Amer) (> 60) Est GFR (Non-Af Amer) (> 60) BUN/Creatinine Ratio (6-26) Glucose (70-105) mg/dL Calculated Osmolality (280-300) Calcium (8.6-10.3) mg/dL Total Bilirubin (0.3-1.0) mg/dL Direct Bilirubin (0.0-0.2) mg/dL Indirect Bilirubin (0.0-1.2) mg/dL AST (13-39) Units/L ALT (7-52) Units/L Alkaline Phosphatase (34-104) Units/L Troponin I (< 0.04) ng/mL Serum Total Protein (6.4-8.9) g/dL Albumin (3.5-5.7) g/dL Globulin (2.4-3.5) g/dL Albumin/Globulin Ratio (1.1-2.2) Lipase (11-82) Units/L Urine Color Makayla A (Yellow) Urine Clarity Clear (Clear) Urine pH 6.5 (5.0-8.0) pH Units Ur Specific [place] 1.022 (1.010-1.025) Urine Protein Trace (Neg-Trace) mg/dL Urine Glucose (UA) Normal (Normal) mg/dL Urine Ketones Trace H (Negative) mg/dL Urine Blood Negative (Negative) Urine Nitrite Positive A (Negative) Urine Bilirubin Small H (Negative) Urine Urobilinogen Normal (Normal) mg/dL Ur Leukocyte Esterase Small H (Negative) Urine Microscopic RBC 0-3 (0-3) per hpf Urine Microscopic WBC 0-3 (0-3) per hpf Ur Squamous Epith Cells Moderate H (None-Few) per lpf Urine Bacteria None Seen (None-Few) per hpf Hyaline Casts None Seen (None-Few) per lpf Ur Culture Indicated? YES A (NO) 11/26/17 11/26/17 11/26/17 Range/Units 16:23 16:23 16:23 WBC 17.0 H (4.3-11.1) K/mcL RBC 3.17 L (4.19-5.50) M/mcL Hgb 8.7 L (12.9-16.9) g/dL Hct 28.5 L (37.5-50.1) % MCV 89.9 (83.0-100.0) fL MCH 27.4 L (28.0-33.3) pg MCHC 30.5 L (31.6-35.5) g/dL RDW 16.4 H (11.5-14.5) % Plt Count 181 (140-400) K/mcL MPV 11.9 (9.4-12.4) fL Immature Gran % 1.1 (0-4) % Seg Neutrophils % 86.9 % Lymphocytes % 5.6 % Monocytes % 6.3 % Eosinophils % 0.0 % Basophils % 0.1 % Neutrophils # 14.8 H (1.6-8.9) K/mcL Lymphocytes # 1.0 (0.6-4.6) K/mcL Monocytes # 1.1 (0.0-1.3) K/mcL Eosinophils # 0.0 (0.0-0.6) K/mcL Basophils # 0.0 (0.0-0.2) K/mcL PT (9.4-12.1) Seconds INR Sample Site ABG pH (7.32-7.45) pH Units ABG pCO2 (35-45) mmHg ABG pO2 (85-104) mmHg ABG HCO3 (21-27) mEq/L ABG Total CO2 (20-26) mEq/L ABG O2 Saturation (95-98) % ABG Base Excess (-2 to 3) mEq/L Wero Test O2 Delivery Device Inspired O2 (1-15=lpm [id number]=%) Sodium 139 (136-145) mEq/L Potassium 3.3 L (3.5-5.1) mEq/L Chloride 102 (98-107) mEq/L Carbon Dioxide 25 (23-29) mEq/L BUN 58 H (8-23) mg/dL Creatinine 2.25 H (0.70-1.30) mg/dL Est GFR ( Amer) 35 L (> 60) Est GFR (Non-Af Amer) 28 L (> 60) BUN/Creatinine Ratio 26 (6-26) Glucose 413 H (70-105) mg/dL Calculated Osmolality 322 H (280-300) Calcium 8.4 L (8.6-10.3) mg/dL Total Bilirubin 0.3 (0.3-1.0) mg/dL Direct Bilirubin 0.1 (0.0-0.2) mg/dL Indirect Bilirubin 0.2 (0.0-1.2) mg/dL AST 6 L (13-39) Units/L ALT 4 L (7-52) Units/L Alkaline Phosphatase 46 (34-104) Units/L Troponin I 0.08 H* (< 0.04) ng/mL Serum Total Protein 5.6 L (6.4-8.9) g/dL Albumin 2.4 L (3.5-5.7) g/dL Globulin 3.2 (2.4-3.5) g/dL Albumin/Globulin Ratio 0.8 L (1.1-2.2) Lipase < 3 L (11-82) Units/L Urine Color (Yellow) Urine Clarity (Clear) Urine pH (5.0-8.0) pH Units Ur Specific Tillman (1.010-1.025) Urine Protein (Neg-Trace) mg/dL Urine Glucose (UA) (Normal) mg/dL Urine Ketones (Negative) mg/dL Urine Blood (Negative) Urine Nitrite (Negative) Urine Bilirubin (Negative) Urine Urobilinogen (Normal) mg/dL Ur Leukocyte Esterase (Negative) Urine Microscopic RBC (0-3) per hpf Urine Microscopic WBC (0-3) per hpf Ur Squamous Epith Cells (None-Few) per lpf Urine Bacteria (None-Few) per hpf Hyaline Casts (None-Few) per lpf Ur Culture Indicated? (NO) - Radiology Data Radiology results reviewed: Yes I reviewed the patient's radiology results. Ankle X-Ray 11/26/17 14:25 IMPRESSION: Ankle soft tissue swelling without acute fracture. Osteomyelitis involving the calcaneus is again seen. D/ / 11/26/2017 15:09:04 Jin Moreno MD / [facility] Interpreting Provider: Jin Moreno MD Chest X-Ray 11/26/17 14:25 IMPRESSION: Small bilateral pleural effusions and bibasilar atelectasis. Possible superimposed consolidation/pneumonia at the right lung base. Left arm catheter terminating in the axilla. D/ / 11/26/2017 15:18:09 Hank Diaz MD / [place] Interpreting Provider: Hank Diaz MD Head CT 11/26/17 14:27 IMPRESSION: No acute intracranial abnormality. D/ / Hank Diaz MD / Hank Diaz MD Interpreting Provider: Hank Diaz MD Abdomen/Pelvis CT 11/26/17 14:41 IMPRESSION: 1. Bilateral hydronephrosis without obvious stones. Extensive distention of the urinary bladder. A bladder outlet obstruction or neurogenic bladder should be considered. A nodular density appears to protrude in the lower aspect of the urinary bladder which may be related to the prostate. 2. Stool impaction in the rectum and constipation but no bowel obstruction. 3. Bilateral pleural effusions and lower lobe atelectatic and/or consolidative changes. D/ / 11/26/2017 15:50:33 Doretha Tirado MD / [facility] Interpreting Provider: Doretha Tirado MD - EKG Data EKG #1 EKG attestation: Yes I reviewed and interpreted this EKG. EKG shows normal: sinus rhythm Rate: normal Rhythm: NSR [place]/QRS: normal Interpretation: no acute changes, nonspecific ST-T wave changes S.B.A.R. - S.B.A.R. Situation: Demographics Background: Presenting Complaint Assessment: Vital Signs, Patient/Family Expectation Recommendation: Barrier(s) to disposition, Recommendation based on pending studies, treatments, or consults S.B.A.RTrevor Report Given to: Dr. Bk Ceron Repor Time: 18:44 Attestation Statement - Attestation Attestation: I examined this patient and my medical decision-making was reviewed with the Resident Physician. I agree with the documented findings, disposition and treatment plan as described except to the extent set forth below. This is a 77- year-old male presenting with sepsis. Pancultures, broad-spectrum antibiotics were initiated. Possible sources include osteomyelitis which is known, urinary tract infection versus pneumonia. IV fluids, cultures were obtained. Patient will be admitted to the hospital for further evaluation of sepsis. I spent greater than 35 minutes of critical care time resuscitating this acutely ill patient suffering from sepsis this is excluding billable procedures.
[2017-11-26] MEDS ORDERED: Piperacillin/Tazobactam 3.375 GM in 0.9 % Sodium Chloride Mini Bag 100 ML IVPB ONE (14:33)
[2017-11-26] MEDS ORDERED: Piperacillin/Tazobactam 3.375 GM in Water for inj. (sterile) 20 ML 20 ML IVP ONE (15:00)
[2017-11-26 15:33] LABS: ABG Base Excess 5 mEq/L (-2 to 3); ABG HCO3 30 mEq/L (21-27); ABG Oxygen Saturation 97 % (95-98); ABG PCO2 42 mmHg (35-45); ABG PH 7.46 pH Units (7.32-7.45); ABG PO2 88 mmHg (85-104); ABG TCO2 31 mEq/L (20-26)
[2017-11-26 15:34] LABS: Bilirubin,Urine Small (Negative); Blood,Urine Negative (Negative); Clarity,Urine Clear (Clear); Glucose,Urine (UA) Normal (Normal); Ketones,Urine Trace mg/dL (Negative); Leukocyte Esterase,Urine Small (Negative); Nitrite,Urine Positive (Negative); PH,Urine 6.5 pH Units (5.0-8.0); Protein,Urine Trace mg/dL (Neg-Trace); Specific Gravity,Urine 1.022 (1.010-1.025); Urobilinogen,Urine Normal (Normal)
[2017-11-26 15:37] LABS: Bacteria,Urine None Seen per hpf (None-Few); Hyaline Casts,Urine None Seen per lpf (None-Few); RBC,Urine 0-3 per hpf (0-3); Squamous Epithelial Cell,Urine Moderate per lpf (None-Few); WBC,Urine 0-3 per hpf (0-3)
[2017-11-26 15:38] LABS: Color,Urine Amber (Yellow)
[2017-11-26 16:42] LABS: Basophils % 0.1 %; Hematocrit 28.5 % (37.5-50.1); Hemoglobin 8.7 g/dL (12.9-16.9); Immature Granulocytes % 1.1 % (0-4); Lymphocytes % 5.6 %; Mean Corpuscular HGB Conc 30.5 g/dL (31.6-35.5); Mean Corpuscular Hemoglobin 27.4 pg (28.0-33.3); Mean Corpuscular Volume 89.9 fL (83.0-100.0); Mean Platelet Volume 11.9 fL (9.4-12.4); Monocytes # 1.1 K/mcL (0.0-1.3); Monocytes % 6.3 %; Neutrophils # 14.8 K/mcL (1.6-8.9); Platelet Count 181 K/mcL (140-400); Red Blood Count 3.17 M/mcL (4.19-5.50); Red Cell Distribution Width 16.4 % (11.5-14.5); Segmented Neutrophils % 86.9 %
[2017-11-26 16:46] LABS: INR 1.9; Prothrombin Time 20.2 Seconds (9.4-12.1)
[2017-11-26] MEDS ORDERED: Aspirin 325 MG TABLET PO ONE (17:10)
[2017-11-26 17:19] LABS: Alanine Aminotransferase 4 Units/L (7-52); Albumin 2.4 g/dL (3.5-5.7); Albumin/Globulin Ratio 0.8 (1.1-2.2); Alkaline Phosphatase 46 Units/L (34-104); Aspartate Amino Transferase 6 Units/L (13-39); BUN/Creatinine Ratio 26 (6-26); Bilirubin,Direct 0.1 mg/dL (0.0-0.2); Bilirubin,Indirect 0.2 mg/dL (0.0-1.2); Bilirubin,Total 0.3 mg/dL (0.3-1.0); Blood Urea Nitrogen 58 mg/dL (8-23); Calcium 8.4 mg/dL (8.6-10.3); Carbon Dioxide 25 mEq/L (23-29); Chloride 102 mEq/L (98-107); Globulin 3.2 g/dL (2.4-3.5); Glucose 413 mg/dL (70-105); Lipase < 3 Units/L (11-82); Osmolality,Calculated 322 (280-300); Potassium 3.3 mEq/L (3.5-5.1); Sodium 139 mEq/L (136-145); Total Protein 5.6 g/dL (6.4-8.9); eGFR For African Americans 35 (> 60); eGFR For Non-African Americans 28 (> 60)
--- NOTE | 2017-11-26 22:25 | Internal Med History&Physical ---
Date of Encounter: 11/26/17 Time of Encounter: 22:22 Assessment and Plan (1) Osteomyelitis Current visit: Yes Status: Acute Recent admission for osteomyelitis we will resume vancomycin and Zosyn Qualifiers: Osteomyelitis type: unspecified type Osteomyelitis location: ankle Laterality: left Qualified Code(s): M86.9 - Osteomyelitis, unspecified (2) Pneumonia Current visit: Yes Status: Acute Patient had recent admission for vancomycin and Zosyn. Will be sufficient for infection Qualifiers: Pneumonia type: due to unspecified organism Laterality: unspecified laterality Lung location: unspecified part of lung Qualified Code(s): J18.9 - Pneumonia, unspecified organism (3) Sepsis Current visit: Yes Status: Acute Patient is confused has high white count and tachycardia lactic acid is not done Qualifiers: Sepsis type: sepsis due to unspecified organism Qualified Code(s): A41.9 - Sepsis, unspecified organism (4) Altered mental status Current visit: No Status: Acute Patient is somnolent Qualifiers: Altered mental status type: disorientation Qualified Code(s): R41.0 - Disorientation, unspecified (5) Protein calorie malnutrition Current visit: No Status: Acute Albumin is 2.4 will consult dietitian Qualifiers: Protein-calorie malnutrition severity: unspecified severity Qualified Code( s): E46 - Unspecified protein-calorie malnutrition (6) Dementia Current visit: No Status: Chronic Qualifiers: Dementia type: Alzheimer's disease Alzheimer's disease onset: unspecified onset Dementia behavioral disturbance: without behavioral disturbance Qualified Code(s): G30.9 - Alzheimer's disease, unspecified; F02.80 - Dementia in other diseases classified elsewhere without behavioral disturbance; F02.80 - Dementia in other diseases classified elsewhere without behavioral disturbance; F02.80 - Dementia in other diseases classified elsewhere without behavioral disturbance Internal Medicine - H&P: HPI Chief complaint: sepsis Admitted From: Emergency Dept Plans for Post Hospital Care: Home History of present illness: Mr. Crow is a 77 year old male Patient with history of a recent admission had osteomyelitis and underwent left lower leg surgery of osteomyelitis, patient also history of protein malnutrition , COPD, dementia, diabetes and hypertension patient was sent from long-term to the emergency room for concern for possible sepsis had some complains of abdominal pain patient was unable to give much history chest x ray suggestive of pneumonia UA contamination collection patient in the ER started on vancomycin and Zosyn documentation show patient is a DNR. Patient is somnolent and unable to give any history Past Med Surg Social Fam HX - Past Medical History Medical history: COPD, dementia, diabetes, hypertension, other Psychiatric history: no psych history - Social History Smoking Status: Former smoker Smokeless Tobacco Status: Yes (Chew) Alcohol use: none Drug use: none - Family History Father Living Status: Age at : 77 Hx Family Cardiac Disorders: Yes (OR) Hx Family Endocrine Disorder: Yes (type 2 diabetes) Mother Living Status: Age at : 66 Hx Family Cardiac Disorders: Yes (OR) Brother Living Status: Age at : 71 Hx Family Cardiac Disorders: Yes Hx Family Cancer: Yes (Lung ca) Internal Medicine - H&P: Meds Ascorbic Acid [Vitamin C] 500 mg PO BID tablet 11/09/17 [Rx] cefTRIAXone [Rocephin] 2,000 mg IVPB DAILY #21 vial 11/09/17 [Rx] metroNIDAZOLE [Flagyl] 500 mg PO TID #78 tablet 11/09/17 [Rx] DiphenhydraMINE [Benadryl] 25 mg PO Q6H PRN 11/26/17 [History] Donepezil HCl [Aricept] 5 mg PO HS 11/26/17 [History] Lisinopril [Zestril] 5 mg PO DAILY 11/26/17 [History] Megestrol Acetate [Megace] 400 mg PO QAM 11/26/17 [History] Multivit/Ca/Min/Fe/FA [Thera M Plus] 1 tab PO QAM 11/26/17 [History] Ondansetron HCl [Zofran] 4 mg PO Q4H PRN 11/26/17 [History] OxyCODONE Immed Rel [Roxicodone 10 MG] 10 mg PO Q6H PRN 11/26/17 [History] Oxygen 2 - 3 l NS AD 11/26/17 [History] RisperiDONE [Risperdal] 0.5 mg PO HS 11/26/17 [History] Zinc Sulfate 220 mg PO QAM 11/26/17 [History] 3 Allergy/AdvReac Type Severity Reaction Status Date / Time No Known Allergies Allergy Verified 10/31/17 16:58 ROS unobtainable: due to mental status All Systems PM: A 10-system review of systems was performed and is negative for pertinent findings except as documented above in the HPI. - Constitutional Vitals: Temp Pulse Resp BP Pulse Ox 98.9 F 99 20 89/56 100 11/26/17 20:13 11/26/17 20:13 11/26/17 20:13 11/26/17 20:13 11/26/17 20:46 General appearance: Present: disheveled - Eye Eye exam: Present: PERRL, conjuntiva pink, sclera anicteric Pupils: Present: PERRL - Respiratory Respiratory exam: Present: prolonged expiratory phase, rhonchi - Cardiovascular Cardiovascular exam: Present: RRR, +S1, +S2. Absent: diastolic murmur, gallop, rubs, systolic murmur - GI/Abdominal GI/Abdominal exam: Present: normal bowel sounds, soft, no peritoneal signs. Absent: distended, tenderness Internal Med - H&P Results - Labs CBC & Chem 7: 11/26/17 16:23 11/26/17 16:23
[2017-11-26] MEDS ORDERED: Acetaminophen 325 MG TABLET PO PRN (22:36)
[2017-11-26] MEDS ORDERED: Naloxone 0.4 MG/ML INJ IVP PRN (22:36)
[2017-11-26] MEDS ORDERED: 0.9 % Sodium Chloride 1,000 ML IVC SCH (22:45)
[2017-11-26] MEDS: Piperacillin/Tazobactam 3.375 GM in 0.9 % Sodium Chloride Mini Bag 100 ML IVPB SCH (23:22)
[2017-11-27] MEDS ORDERED: Dextrose Gel 15 GM/37.5 ML TUBE PO PRN ×2 (03:44)
[2017-11-27] MEDS ORDERED: D5% in Water 1,000 ML IVC PRN (03:44)
[2017-11-27] MEDS ORDERED: *HR* Dextrose 50 % in Water (Syg) 50 ML SYRINGE IVP PRN (03:44)
[2017-11-27 04:41] LABS: Hematocrit 25.1 % (37.5-50.1); Hemoglobin 8.1 g/dL (12.9-16.9); Mean Corpuscular HGB Conc 32.3 g/dL (31.6-35.5); Mean Corpuscular Volume 86.9 fL (83.0-100.0); Mean Platelet Volume 11.8 fL (9.4-12.4); Platelet Count 167 K/mcL (140-400); Red Blood Count 2.89 M/mcL (4.19-5.50); Red Cell Distribution Width 16.1 % (11.5-14.5)
[2017-11-27] MEDS: 0.9 % Sodium Chloride 1,000 ML IVC SCH ×2 (05:06→11:36)
[2017-11-27 05:07] LABS: Albumin 2.3 g/dL (3.5-5.7); Albumin/Globulin Ratio 0.8 (1.1-2.2); Bilirubin,Total 0.3 mg/dL (0.3-1.0); Calcium 8.2 mg/dL (8.6-10.3); Magnesium 2.3 mg/dL (1.6-2.6); Potassium 2.9 mEq/L (3.5-5.1); Total Protein 5.3 g/dL (6.4-8.9)
[2017-11-27] MEDS ORDERED: *HR* Enoxaparin 40 MG/0.4 ML SYRINGE SQ SCH (06:00)
[2017-11-27] MEDS: Insulin LISPRO 300 UNITS/3 ML VIAL SQ SCH ×3 (07:30→19:25)
[2017-11-27] MEDS: Multivit/Ca/Min/Fe/FA 1 TAB TABLET PO SCH (09:00)
[2017-11-27] MEDS: Megestrol Acetate 400 MG/10 ML UDC PO SCH (09:00)
[2017-11-27] MEDS: Ascorbic Acid 500 MG TABLET PO SCH ×2 (10:29→23:13)
[2017-11-27] MEDS: Zinc Sulfate 220 MG CAPSULE PO SCH (10:29)
[2017-11-27] MEDS: Piperacillin/Tazobactam 3.375 GM in 0.9 % Sodium Chloride Mini Bag 100 ML IVPB SCH ×2 (11:37→23:47)
--- NOTE | 2017-11-27 12:16 | Electrocardiograph Report ---
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
[2017-11-27] MEDS ORDERED: Potassium Chloride 40 MEQ, Lidocaine 1% 2 ML in D5% in Water 500 ML IVPB ONE (13:28)
--- NOTE | 2017-11-27 14:50 | Podiatry Consult Note ---
Date of Encounter: 11/27/17 Time of Encounter: 14:15 Assessment and Plan (1) Osteomyelitis Current visit: Yes Status: Chronic s/p Incision and drainage left leg, release of Achilles tendon/debridement of Achilles tendon, biopsy of Achilles tendon. biopsy of calcaneus, and debridement of ulcerations left heel by Dr. Cortes on 11/02/17. Left Ankle Xray from 11/26/17 showed ankle soft tissue swelling with out acute fracture, osteomyelitis involving the calcaneus. Dr. Cortes personally reviewed the xray and did not see any evidence of osteomyelitis. Clinically the left ankle appears to be healing well, no signs of infection. No probe to bone, no tunneling, no sinus tracts, no erythema, no fluctuance, no warmth. No clinical signs or symptoms of osteomyelitis. WBC: 17.0 upon admission, decreased to 14.7 today. Plan: No evidence of osteomyelitis based on clinical exam and review of xray. The surgical wound is healing. Incision line has healed, sutures removed with out difficulty. Recommend daily wound care with cleansing surgical wound daily with mild soap and water, pat dry, apply adaptic, 4x4 dry sterile gauze and medipore tape. Keep left leg elevated and surgical wound away from pressure. Will continue to closely monitor patient. Follow up with Dr. Cortes in one week after discharge from the hospital. Qualifiers: Osteomyelitis type: unspecified type Osteomyelitis location: ankle Laterality: left Qualified Code(s): M86.9 - Osteomyelitis, unspecified History of Present Illness HPI: Mr. Crow is a 77 year old male admitted to [facility] for concerns for sepsis. Patient has a medical history significant for dementia, Alzheimer's, diabetes, high blood pressure. Patient is s/p Incision and drainage left leg, release of Achilles tendon/debridement of Achilles tendon, biopsy of Achilles tendon. biopsy of calcaneus, and debridement of ulcerations left heel by Dr. Cortes on 11/02/17. Xrays of left ankle from October prior to surgery showed findings consistent with osteomyelitis. Intra op cultures isolated Proteus mirabilis and anaerobes. Bone pathology was negative for osteomyelitis. Patient was discharged to an ECF with a wound vac and IV antibiotics. Patient was receiving Rocephin 2 grams IV daily and Flagyl 500 mg PO TID per Infectious Disease recommendations. Patient is lying in bed unable to answer any questions. Patient does open eyes to his name. No family at the bedside. Per nurse wound vac was removed at the [facility] prior to transfer to [facility]. Past Med Surg Social Fam HX - Past Medical History Medical history: COPD, dementia, diabetes, hypertension, other Psychiatric history: no psych history - Social History Smoking Status: Former smoker Smokeless Tobacco Status: Yes (Chew) Alcohol use: none Drug use: none - Family History Father Living Status: Age at : 77 Hx Family Cardiac Disorders: Yes (ND) Hx Family Endocrine Disorder: Yes (type 2 diabetes) Mother Living Status: Age at : 66 Hx Family Cardiac Disorders: Yes (ND) Brother Living Status: Age at : 71 Hx Family Cardiac Disorders: Yes Hx Family Cancer: Yes (Lung ca) Medications and Allergies Ascorbic Acid [Vitamin C] 500 mg PO BID tablet 11/09/17 [Rx] cefTRIAXone [Rocephin] 2,000 mg IVPB DAILY #21 vial 11/09/17 [Rx] metroNIDAZOLE [Flagyl] 500 mg PO TID #78 tablet 11/09/17 [Rx] DiphenhydraMINE [Benadryl] 25 mg PO Q6H PRN 11/26/17 [History] Donepezil HCl [Aricept] 5 mg PO HS 11/26/17 [History] Lisinopril [Zestril] 5 mg PO DAILY 11/26/17 [History] Megestrol Acetate [Megace] 400 mg PO QAM 11/26/17 [History] Multivit/Ca/Min/Fe/FA [Thera M Plus] 1 tab PO QAM 11/26/17 [History] Ondansetron HCl [Zofran] 4 mg PO Q4H PRN 11/26/17 [History] OxyCODONE Immed Rel [Roxicodone 10 MG] 10 mg PO Q6H PRN 11/26/17 [History] Oxygen 2 - 3 l NS AD 11/26/17 [History] RisperiDONE [Risperdal] 0.5 mg PO HS 11/26/17 [History] Zinc Sulfate 220 mg PO QAM 11/26/17 [History] 3 Allergy/AdvReac Type Severity Reaction Status Date / Time No Known Allergies Allergy Verified 10/31/17 16:58 All Systems Reviewed: The remainder of the systems were reviewed and are negative Physical Exam - Constitutional Vitals: Temp Pulse Resp BP Pulse Ox 97.8 F 96 17 119/61 100 11/27/17 11:09 11/27/17 11:09 11/27/17 11:09 11/27/17 11:09 11/27/17 06:52 Exam: General appearance: alert awake oriented X 3. Calm and pleasant, no acute distress.. Vascular: Pedal pulses +1/4 DP/PT , No evidence of cyanosis, pallor or rubor, Edema graded at 2+/4 left, 1+/4 right Skin Temperature warm, No calf pain with manual compression. capillary refill time is immediate to digits. Neurologic: Patient moans when leg is elevated. Postop Exam: S/P Sutures intact to incision line, no signs of dehiscence. Incision line has healed. Open surgical wound to the left posterior ankle measuring 2cm in length x 0.8 cm in width x 0.3 cm in depth. Base of wound with 90% red tissue, 10% yellow tissue. Wound edges connected and dry. No tunneling, no sinus tracts, no exposed bone, no ligament, no tendon, no fluctuance, no warmth, no evidence of bacterial infection. Results - Labs Result Diagrams: 11/28/17 01:59 11/28/17 01:59 Labs: Abnormal lab results WBC 14.7 K/mcL (4.3-11.1) H 11/27/17 03:38 RBC 2.89 M/mcL (4.19-5.50) L 11/27/17 03:38 Hgb 8.1 g/dL (12.9-16.9) L 11/27/17 03:38 Hct 25.1 % (37.5-50.1) L 11/27/17 03:38 RDW 16.1 % (11.5-14.5) H 11/27/17 03:38 Neutrophils # 14.8 K/mcL (1.6-8.9) H 11/26/17 16:23 PT 20.2 Seconds (9.4-12.1) H 11/26/17 16:23 ABG pH 7.46 pH Units (7.32-7.45) H 11/26/17 15:31 ABG HCO3 30 mEq/L (21-27) H 11/26/17 15:31 ABG Total CO2 31 mEq/L (20-26) H 11/26/17 15:31 ABG Base Excess 5 mEq/L (-2 to 3) H 11/26/17 15:31 Potassium 2.9 mEq/L (3.5-5.1) L 11/27/17 03:38 BUN 60 mg/dL (8-23) H 11/27/17 03:38 Creatinine 1.74 mg/dL (0.70-1.30) H 11/27/17 03:38 Est GFR ( Amer) 46 (> 60) L 11/27/17 03:38 Est GFR (Non-Af Amer) 38 (> 60) L 11/27/17 03:38 BUN/Creatinine Ratio 34 (6-26) H 11/27/17 03:38 Glucose 274 mg/dL (70-105) H 11/27/17 03:38 POC Glucose 184 (58-89) H 11/27/17 11:12 Calculated Osmolality 321 (280-300) H 11/27/17 03:38 Calcium 8.2 mg/dL (8.6-10.3) L 11/27/17 03:38 AST 7 Units/L (13-39) L 11/27/17 03:38 ALT 4 Units/L (7-52) L 11/27/17 03:38 Troponin I 0.08 ng/mL (< 0.04) H* 11/26/17 16:23 Serum Total Protein 5.3 g/dL (6.4-8.9) L 11/27/17 03:38 Albumin 2.3 g/dL (3.5-5.7) L 11/27/17 03:38 Albumin/Globulin Ratio 0.8 (1.1-2.2) L 11/27/17 03:38 Lipase < 3 Units/L (11-82) L 11/26/17 16:23 Urine Color Makayla (Yellow) A 11/26/17 15:05 Urine Ketones Trace mg/dL (Negative) H 11/26/17 15:05 Urine Nitrite Positive (Negative) A 11/26/17 15:05 Urine Bilirubin Small (Negative) H 11/26/17 15:05 Ur Leukocyte Esterase Small (Negative) H 11/26/17 15:05 Ur Squamous Epith Cells Moderate per lpf (None-Few) H 11/26/17 15:05 Ur Culture Indicated? YES (NO) A 11/26/17 15:05 H & H 11/27/17 Range/Units 03:38 Hgb 8.1 L (12.9-16.9) g/dL Hct 25.1 L (37.5-50.1) % All other labs normal. Consult Discharge Plan - Plan Referrals: NONE,PCP [Primary Care Provider] - Saskia Joseph [Family Provider] -
--- NOTE | 2017-11-27 21:30 | Internal Med Progress Note ---
Date of Encounter: 11/27/17 Time of Encounter: 21:27 - Assessment and plan (1) Sepsis Current Visit: Yes Status: Acute Assessment and plan: Improving. WBC decreasing. HR decreasing. Continue IV vancomycin and IV zosyn. S/P fluid resuscitation; will continue IVF as he is refusing to take PO. Monitor vitals closely. Obtain CBC in AM. Qualifiers: Sepsis type: sepsis due to unspecified organism Qualified Code(s): A41.9 - Sepsis, unspecified organism (2) Pneumonia Current Visit: Yes Status: Acute Assessment and plan: CXR with possible consolidation at right lung base. Respiratory status stable. Continue IV vancomycin and IV zosyn. Qualifiers: Pneumonia type: due to unspecified organism Laterality: unspecified laterality Lung location: unspecified part of lung Qualified Code(s): J18.9 - Pneumonia, unspecified organism (3) Osteomyelitis Current Visit: Yes Status: Chronic Assessment and plan: Previous hospitalization for this. Currently on vancomycin and zosyn. Will consult podiatry for reevaluation and wound vac changes/recommendations. Qualifiers: Osteomyelitis type: unspecified type Osteomyelitis location: ankle Laterality: left Qualified Code(s): M86.9 - Osteomyelitis, unspecified (4) Protein calorie malnutrition Current Visit: Yes Status: Chronic Assessment and plan: Continues to get worse per daughter. Continue IVF while refusing PO. Encourage PO intake. Nutrition consulted; appreciate input. This may be a worsening of baseline, and given decline over last few hospitalizations, he may be a good palliative care candidate. Daughter is amenable to talking to palliative care. She thinks he may benefit with home hospice. Will consult palliative care; appreciate input. Qualifiers: Protein-calorie malnutrition severity: unspecified severity Qualified Code( s): E46 - Unspecified protein-calorie malnutrition (5) Dementia Current Visit: Yes Status: Chronic Assessment and plan: Palliative care consult as per above. Continue home medications. Qualifiers: Dementia type: Alzheimer's disease Alzheimer's disease onset: unspecified onset Dementia behavioral disturbance: without behavioral disturbance Qualified Code(s): G30.9 - Alzheimer's disease, unspecified; F02.80 - Dementia in other diseases classified elsewhere without behavioral disturbance; F02.80 - Dementia in other diseases classified elsewhere without behavioral disturbance; F02.80 - Dementia in other diseases classified elsewhere without behavioral disturbance (6) Acute encephalopathy Current Visit: Yes Status: Acute Assessment and plan: Likely multifactorial. Will address issues as per above and reevaluate. Palliative care consulted as per above. (7) Hypokalemia Current Visit: Yes Status: Acute Assessment and plan: Worsening. K = 2.9. Not tolerating PO, so give IV KCl 40 mEq once. Recheck BMP in AM. (8) Acute kidney injury Current Visit: Yes Status: Acute Assessment and plan: Improved. Cr = 1.73. Continue IVF as per above. Recheck BMP in AM. (9) Diabetes Current Visit: Yes Status: Chronic Assessment and plan: Currently hyperglycemia. Not taking PO. Will start accuchecks and SSI, and monitor closely. 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 mellitus alf insulin use: without alf use Diabetes mellitus complication status: with skin complications Diabetes mellitus complication detail: with foot ulcer Qualified Code(s): E11.621 - Type 2 diabetes mellitus with foot ulcer; L97.509 - Non-pressure chronic ulcer of other part of unspecified foot with unspecified severity; L97.509 - Non-pressure chronic ulcer of other part of unspecified foot with unspecified severity; L97.509 - Non-pressure chronic ulcer of other part of unspecified foot with unspecified severity; L97.509 - Non-pressure chronic ulcer of other part of unspecified foot with unspecified severity (10) DVT prophylaxis Current Visit: Yes Status: Acute Assessment and plan: Continue SC lovenox. - Time Spent With Patient 25 - 35 minutes - Subjective Interval history: Patient had no acute events overnight. Nursing staff reports that he is uncooperative and refusing treatment and medications this AM. He does not really talk to me, muttering some things, and wanting to go back to sleep. He does not voice any concerns. I spoke with daughter today who is primary wild animal caretaker. She states that he has progressively declined with each hospitalization. She states that [facility] not [facility] good at [facility]. He has not been eating well there, but eats when she brings him food. We discussed palliative consult, and she is amenable to talking with them. She thinks that home with home hospice would be good for him as he wants to be at home. - Constitutional Vitals: Temp Pulse Resp BP Pulse Ox 97.8 F 88 16 114/60 100 11/27/17 15:13 11/27/17 15:13 11/27/17 15:13 11/27/17 15:13 11/27/17 15:13 General appearance: Present: cachectic, A&O X 0, disheveled. Absent: pleasant, no acute distress, answers questions appropriately - Eye Eye exam: Present: EOMI, PERRL. Absent: nystagmus, scleral icterus - Respiratory Respiratory exam: Present: CTAB. Absent: accessory muscle use, rales, wheezes Additional comments: Normal WOB, intermittent rhonchi - Cardiovascular Cardiovascular exam: Present: RRR, +S1, +S2. Absent: diastolic murmur, gallop, rubs, systolic murmur Additional comments: Trace BLE edema - GI/Abdominal GI/Abdominal exam: Present: normal bowel sounds, soft. Absent: distended, hepatomegaly, mass, splenomegaly, tenderness - Psychiatric Psychiatric exam: Present: agitated. Absent: anxious, depressed - Skin Skin exam: Present: dry, warm. Absent: cyanosis, rash Additional comments: Left foot with bandaging, no drainage or TTP. Internal Medicine: Result - Labs CBC & Chem 7: 11/27/17 03:38 11/27/17 03:38 Labs: Short CBC 11/27/17 Range/Units 03:38 WBC 14.7 H (4.3-11.1) K/mcL Hgb 8.1 L (12.9-16.9) g/dL Hct 25.1 L (37.5-50.1) % Plt Count 167 (140-400) K/mcL BMP 11/27/17 03:38 Sodium 142 Potassium 2.9 L Chloride 106 Carbon Dioxide 27 BUN 60 H Creatinine 1.74 H Glucose 274 H Calcium 8.2 L Liver Function 11/27/17 Range/Units 03:38 Total Bilirubin 0.3 (0.3-1.0) mg/dL AST 7 L (13-39) Units/L ALT 4 L (7-52) Units/L Alkaline Phosphatase 40 (34-104) Units/L Albumin 2.3 L (3.5-5.7) g/dL - ABG Interpretation ABG results: ABG ABG pH 7.46 pH Units (7.32-7.45) H 11/26/17 15:31 ABG pCO2 42 mmHg (35-45) 11/26/17 15:31 ABG pO2 88 mmHg (85-104) 11/26/17 15:31 ABG O2 Saturation 97 % (95-98) 11/26/17 15:31 PT/INR, D-dimer PT 20.2 Seconds (9.4-12.1) H 11/26/17 16:23 Consult Discharge Plan - Plan Referrals: NONE,PCP [Primary Care Provider] - Saskia Joseph [Family Provider] -
[2017-11-27] MEDS: risperiDONE 0.25 MG TABLET PO SCH (23:13)
[2017-11-28] MEDS: Piperacillin/Tazobactam 3.375 GM in 0.9 % Sodium Chloride Mini Bag 100 ML IVPB SCH ×2 (01:14→08:20)
[2017-11-28 02:26] LABS: Basophils # 0.1 K/mcL (0.0-0.2); Basophils % 0.3 %; Eosinophils % 0.1 %; Hematocrit 26.3 % (37.5-50.1); Hemoglobin 8.2 g/dL (12.9-16.9); Immature Granulocytes % 0.6 % (0-4); Lymphocytes % 6.7 %; Mean Corpuscular HGB Conc 31.2 g/dL (31.6-35.5); Mean Corpuscular Hemoglobin 27.5 pg (28.0-33.3); Mean Corpuscular Volume 88.3 fL (83.0-100.0); Mean Platelet Volume 11.6 fL (9.4-12.4); Monocytes # 1.2 K/mcL (0.0-1.3); Monocytes % 8.6 %; Platelet Count 185 K/mcL (140-400); Red Blood Count 2.98 M/mcL (4.19-5.50); Segmented Neutrophils % 83.7 %
[2017-11-28 02:41] LABS: BUN/Creatinine Ratio 55 (6-26); Blood Urea Nitrogen 51 mg/dL (8-23); Calcium 8.1 mg/dL (8.6-10.3); Carbon Dioxide 28 mEq/L (23-29); Chloride 112 mEq/L (98-107); Glucose 173 mg/dL (70-105); Osmolality,Calculated 318 (280-300); Potassium 2.9 mEq/L (3.5-5.1); Sodium 145 mEq/L (136-145); eGFR For African Americans > 60 (> 60); eGFR For Non-African Americans > 60 (> 60)
[2017-11-28] MEDS: 0.9 % Sodium Chloride 1,000 ML IVC SCH ×2 (05:42→12:27)
[2017-11-28] MEDS ORDERED: *HR* Enoxaparin 30 MG/0.3 ML SYRINGE SQ SCH (06:00)
[2017-11-28] MEDS ORDERED: Potassium Chloride 20 MEQ, Lidocaine 1% 2 ML in D5% in Water 250 ML IVPB ONE (07:46)
[2017-11-28] MEDS ORDERED: Potassium Chloride 40 MEQ, Lidocaine 1% 2 ML in D5% in Water 500 ML IVPB ONE (07:50)
[2017-11-28] MEDS: Insulin LISPRO 300 UNITS/3 ML VIAL SQ SCH ×3 (08:18→17:24)
[2017-11-28] MEDS: Zinc Sulfate 220 MG CAPSULE PO SCH (08:21)
[2017-11-28] MEDS: Ascorbic Acid 500 MG TABLET PO SCH ×2 (08:21→21:08)
[2017-11-28] MEDS: Megestrol Acetate 400 MG/10 ML UDC PO SCH (08:21)
[2017-11-28] MEDS: Multivit/Ca/Min/Fe/FA 1 TAB TABLET PO SCH (08:21)
--- NOTE | 2017-11-28 09:50 | Palliative - Consult Note ---
Date of Encounter: 11/28/17 Time of Encounter: 09:15 - Assessment and Plan (1) Frail elderly Current Visit: Yes Status: Acute Assessment and plan: Patient currently resides in ECF. Notes indicate that he has been refusing to eat or engage in care. Daughter reports that he has refused to eat in ECF and his current Code Status is comfort care. The patient needs assistance with meals and meds need crushed for consumption. The patient can answer a few questions related to pain but overall refuses to engage in his care. He has refused his meals. Dietary has been consulted and Protein is 5.3 and Albumin is 2.3. He is able to verbalize that he wishes to go home. (2) Constipation Current Visit: No Status: Acute Assessment and plan: Stool impaction noted on CT scan. Patent with moderate BMs. Will add bowel regimen to maintain function. Qualifiers: Constipation type: unspecified constipation type Qualified Code(s): K59.00 - Constipation, unspecified (3) Goals of care, counseling/discussion Current Visit: Yes Status: Acute Assessment and plan: Patient verbalizes that he desires to go home. I will call daughter Magalie to set- up a meeting. Magalie #[phone]. Goals will be to discuss DC plan and discuss possible comfort care as patient is a DNRCC - Comfort care and the possibilities of home transition. Patient frail and not eating. History of Alzheimers dementia as well as low protein and albumin. (4) Acute osteomyelitis of calcaneum Current Visit: No Status: Acute Assessment and plan: Resolved per Podiatry. Appreciate their input. Patient with wound care orders. Qualifiers: Laterality: left Qualified Code(s): M86.172 - Other acute osteomyelitis, left ankle and foot (5) Protein calorie malnutrition Current Visit: Yes Status: Chronic Qualifiers: Protein-calorie malnutrition severity: unspecified severity Qualified Code( s): E46 - Unspecified protein-calorie malnutrition (6) Pneumonia Current Visit: Yes Status: Acute Assessment and plan: Zosyn and Vancomycin per Hospitalist. Qualifiers: Pneumonia type: due to unspecified organism Laterality: unspecified laterality Lung location: unspecified part of lung Qualified Code(s): J18.9 - Pneumonia, unspecified organism (7) Hypokalemia Current Visit: Yes Status: Acute Palliative-CN HPI - Data of Consult Patient: new to practice Consult date: 11/28/17 Requesting Physician: Robert Shi Primary Care Provider: PCP NONE Family Provider: Carroll Provider - Consult Narrative Palliative Care/Comfort Measures: Palliative care Reason for consult: Goals of Care History of present illness: Mr. Crow is a 77 year old male, Day 2 of admission. Patient admitted from [facility]. Patient with history of a recent admission had osteomyelitis and underwent left lower leg surgery. Patient also history of protein malnutrition, COPD, dementia, diabetes and hypertension. Patient started on vancomycin and Zosyn for CXR with Pneumonia and sepsis. This palliative care consult is for goals of care discussion. Patient in bed, consented to light being turned. Was able to verbalize where he was but stated he wanted to be left alone. Denies pain or discomfort. Chart reviewed. CC: Robert Shi Past Med Surg Social Fam HX - Past Medical History Source: old records reviewed, obtained from family, nursing notes reviewed Medical history: COPD, dementia, diabetes, hypertension, other Psychiatric history: no psych history - Past Surgical History Surgical History: other (I & D of left lower leg) - Social History Smoking Status: Former smoker Smokeless Tobacco Status: Yes (Chew) Alcohol use: none Drug use: none Occupational status: unemployed Current living situation: [facility] Activity Level: Bed bound Recent Out of Country Travel Within the Last 8 Weeks: No Exposure or Possible Exposure to Illness During Travel: No - Family History Father Living Status: Age at : 77 Hx Family Cardiac Disorders: Yes (NE) Hx Family Endocrine Disorder: Yes (type 2 diabetes) Mother Living Status: Age at : 66 Hx Family Cardiac Disorders: Yes (NE) Brother Living Status: Age at : 71 Hx Family Cardiac Disorders: Yes Hx Family Cancer: Yes (Lung ca) Medications and Allergies Ascorbic Acid [Vitamin C] 500 mg PO BID tablet 11/09/17 [Rx] cefTRIAXone [Rocephin] 2,000 mg IVPB DAILY #21 vial 11/09/17 [Rx] metroNIDAZOLE [Flagyl] 500 mg PO TID #78 tablet 11/09/17 [Rx] DiphenhydraMINE [Benadryl] 25 mg PO Q6H PRN 11/26/17 [History] Donepezil HCl [Aricept] 5 mg PO HS 11/26/17 [History] Lisinopril [Zestril] 5 mg PO DAILY 11/26/17 [History] Megestrol Acetate [Megace] 400 mg PO QAM 11/26/17 [History] Multivit/Ca/Min/Fe/FA [Thera M Plus] 1 tab PO QAM 11/26/17 [History] Ondansetron HCl [Zofran] 4 mg PO Q4H PRN 11/26/17 [History] OxyCODONE Immed Rel [Roxicodone 10 MG] 10 mg PO Q6H PRN 11/26/17 [History] Oxygen 2 - 3 l NS AD 11/26/17 [History] RisperiDONE [Risperdal] 0.5 mg PO HS 11/26/17 [History] Zinc Sulfate 220 mg PO QAM 11/26/17 [History] 3 Allergy/AdvReac Type Severity Reaction Status Date / Time No Known Allergies Allergy Verified 10/31/17 16:58 ROS unobtainable: due to mental status All systems: reviewed and no additional remarkable complaints except as stated Review of systems: Patient states that his left lower leg was stiff and his breathing had improved. - Constitutional Constitutional ROS PAL: fatigue, lethargy - Cardiovascular Cardiovascular ROS: pedal edema Additional comments: Left foot with 2+ pitting - Respiratory Respiratory: dyspnea - Gastrointestinal Gastrointestinal: abdominal pain, constipation - Genitourinary Genitourinary ROS male: urinary frequency Additional comments: Attends and indwelling zamudio catheter - Musculoskeletal Musculoskeletal ROS IM: muscle weakness - Integumentary ROS Integumentary: wounds (Left lower leg and right knee) - Neurological Neurological ROS: weakness - Psychiatric Psychiatric general PM: other (dementia = Alzheimers) Palliative Care-Exam - Constitutional Vitals: Temp Pulse Resp BP Pulse Ox 98.0 F 92 15 114/68 100 11/28/17 06:33 11/28/17 06:33 11/28/17 06:33 11/28/17 06:33 11/28/17 06:33 General appearance: Present: no acute distress, thin - Head Head Exam: Present: atraumatic, normal inspection - Eye Eye exam: Present: PERRL Pupils: Present: PERRL - ENT ENT exam: Present: mucous membranes dry - Expanded ENT Exam Mouth Exam: Present: muffled voice - Respiratory Respiratory exam: Present: decreased breath sounds, rales - Expanded Respiratory Exam Location: decreased breath sounds: Left, Right, Lower, rales: Left, Right, Upper (scattered) - Cardiovascular Cardiovascular exam: Present: RRR, +S1, +S2 - Expanded Cardiovascular Exam Peripheral pulses: 1+: Femoral (L) PM, Femoral (R) PM, Posterior Tibialis (L), Posterior Tibialis (R), 2+: Carotid (L) PM, Carotid (R) PM, Radial (L), Radial ( R), Dorsalis Pedis (L) PM, Dorsalis Pedis (R) PM - GI/Abdominal Exam GI/Abdominal exam: Present: normal bowel sounds, soft - Catheter Type: Urethral (Zamudio) - Expanded Upper Extremities Exam Upper Arm exam: Present: full ROM Forearm wrist exam: Present: full ROM - Expanded Lower Extremities Exam Upper Leg exam: Present: full ROM Lower Leg exam: Present: full ROM - Neurological Exam Neurological exam: Present: alert - Expanded Neurological Exam Coma Scale Eye Opening: Spontaneous Coma Scale Motor Response: Obeys Commands Coma Scale Verbal Response: Confused Coma Scale Total: 14 - Psychiatric Psychiatric exam: Present: flat affect - Skin Skin exam: Present: pallor, warm Internal Medicine - CN: Reslt - Labs CBC & Chem 7: 11/28/17 01:59 11/28/17 01:59 Labs: Short CBC 11/28/17 Range/Units 01:59 WBC 14.3 H (4.3-11.1) K/mcL Hgb 8.2 L (12.9-16.9) g/dL Hct 26.3 L (37.5-50.1) % Plt Count 185 (140-400) K/mcL Neutrophils # 12.0 H (1.6-8.9) K/mcL BMP 11/28/17 01:59 Sodium 145 Potassium 2.9 L Chloride 112 H Carbon Dioxide 28 BUN 51 H Creatinine 0.93 Glucose 173 H Calcium 8.1 L - ABG Interpretation ABG results: ABG ABG pH 7.46 pH Units (7.32-7.45) H 11/26/17 15:31 ABG pCO2 42 mmHg (35-45) 11/26/17 15:31 ABG pO2 88 mmHg (85-104) 11/26/17 15:31 ABG O2 Saturation 97 % (95-98) 11/26/17 15:31 PT/INR, D-dimer PT 20.2 Seconds (9.4-12.1) H 11/26/17 16:23 Consult Discharge Plan - Plan Referrals: NONE,PCP [Primary Care Provider] - Saskia Joseph [Family Provider] - Palliative Quality Palliative Quality: Screen for Code Status: Yes (DNRCC - Comfort Care), Screen for Goals of Care: Yes, Screen for Pain: Yes, If Pain Regimen Started, Initiate Bowel Regimen: Yes, Screen for Nausea/Vomitting: Yes Code Status: 11/26/17 22:36 Resuscitation Status: Active [RES] Routine Comment: Resuscitation Status: DNR-Comfort Care
--- NOTE | 2017-11-28 10:53 | Event Note ---
Date of Encounter: 11/28/17 Time of Encounter: 10:30 Called Magalie, patients daughter at [phone]. Discussed patients plan of care. Patent refusing to eat and participate in care plan. Patient with Alzheimer's dementia and COPD. Currently on 4L O2 and refuses to engage in meaningful conversation. Desires to go home. Educated Magalie on Hospice care as patient refuses to eat and would not want any type of artificial feedings or PEG placement. Patient requiring meds to be crushed when he will agree to taking them. Patient being treated with antibiotics for pneumonia. Magalie desires to transition patient home with Hospice care. I explained hospice care and goals of quality of life and maintaining care at home. Informed Magalie that hospice doesn't provide 24 care. She reported that her 2 sons are at home and can assist with care. Magalie works 3rd shift and one son works third shift and one son works days and will be available to provide care. Terminal diagnosis is end-stage Alzheimer's disease and COPD. Durable medical equipment needs are: Hospital bed, bedside table, O2, Urinal, bedside commode, and wheelchair. I called Mary at [facility] and reported DME needs, provided Magalie contact information and Magalie desires DME delivery for Saturday11/29/17 and patient to be DC home on Saturday the 11/30/17 if possible. This will faciliate home set-up and the patient to be set for DC. Case discussed with Cash Mercado, Palliative care high school social studies teacher.
[2017-11-28] MEDS: levoFLOXacin 750 MG TABLET PO SCH (12:22)
[2017-11-28] MEDS ORDERED: Aminoglycoside Consult 1 EACH MC ONE (19:43)
[2017-11-28] MEDS: Sennosides/Docusate Sodium TABLET PO SCH (21:08)
[2017-11-28] MEDS: risperiDONE 0.25 MG TABLET PO SCH (21:09)
--- NOTE | 2017-11-28 21:09 | Internal Med Progress Note ---
Date of Encounter: 11/28/17 Time of Encounter: 21:07 - Assessment and plan (1) Sepsis Current Visit: Yes Status: Acute Assessment and plan: Improving. WBC decreasing. HR normalizing. Will deescalate antibiotics. Stop IV vancomycin and IV zosyn. Start levaquin 750 mg PO QD. Will stop IVF as he is now taking PO. Monitor vitals closely. Obtain CBC in AM. Qualifiers: Sepsis type: sepsis due to unspecified organism Qualified Code(s): A41.9 - Sepsis, unspecified organism (2) Pneumonia Current Visit: Yes Status: Acute Assessment and plan: CXR with possible consolidation at right lung base. Likely source of sepsis. Respiratory status stable. Start PO levaquin as per above. Qualifiers: Pneumonia type: due to unspecified organism Laterality: unspecified laterality Lung location: unspecified part of lung Qualified Code(s): J18.9 - Pneumonia, unspecified organism (3) Osteomyelitis Current Visit: Yes Status: Chronic Assessment and plan: Previous hospitalization for this. Podiatry states that no osteomyelitis at this time and no need for wound vac. Will continue routine wound care. Qualifiers: Osteomyelitis type: unspecified type Osteomyelitis location: ankle Laterality: left Qualified Code(s): M86.9 - Osteomyelitis, unspecified (4) Protein calorie malnutrition Current Visit: Yes Status: Chronic Assessment and plan: Eating now today. Will encourage PO intake daily. Nutrition consulted; appreciate input. Palliative care consulted; appreciate input. Plan now for home hospice. He will likely due better in regards to this with supervision and encouragement of daughter. Qualifiers: Protein-calorie malnutrition severity: unspecified severity Qualified Code( s): E46 - Unspecified protein-calorie malnutrition (5) Dementia Current Visit: Yes Status: Chronic Assessment and plan: Palliative care consult as per above. Continue home medications. Qualifiers: Dementia type: Alzheimer's disease Alzheimer's disease onset: unspecified onset Dementia behavioral disturbance: without behavioral disturbance Qualified Code(s): G30.9 - Alzheimer's disease, unspecified; F02.80 - Dementia in other diseases classified elsewhere without behavioral disturbance; F02.80 - Dementia in other diseases classified elsewhere without behavioral disturbance; F02.80 - Dementia in other diseases classified elsewhere without behavioral disturbance (6) Acute encephalopathy Current Visit: Yes Status: Resolved Assessment and plan: Was likely multifactorial. Resolved now. (7) Hypokalemia Current Visit: Yes Status: Acute Assessment and plan: Unchanged. K = 2.9. Now taking PO, so will encourage PO hydration. Give IV KCl 40 mEq once and PO KCl 40 mEq once. Recheck BMP in AM. (8) Acute kidney injury Current Visit: Yes Status: Acute (9) Diabetes Current Visit: Yes Status: Chronic Assessment and plan: Hyperglycemia improved. Now taking PO. Continue accuchecks and SSI, and monitor closely. 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 mellitus terminal carman insulin use: without fpc use Diabetes mellitus complication status: with skin complications Diabetes mellitus complication detail: with foot ulcer Qualified Code(s): E11.621 - Type 2 diabetes mellitus with foot ulcer; L97.509 - Non-pressure chronic ulcer of other part of unspecified foot with unspecified severity; L97.509 - Non-pressure chronic ulcer of other part of unspecified foot with unspecified severity; L97.509 - Non-pressure chronic ulcer of other part of unspecified foot with unspecified severity; L97.509 - Non-pressure chronic ulcer of other part of unspecified foot with unspecified severity (10) DVT prophylaxis Current Visit: Yes Status: Acute Assessment and plan: Continue SC lovenox. - Time Spent With Patient less than 15 minutes - Subjective Interval history: Patient had no acute events overnight. Nursing staff reports that he is more cooperative this AM. He is taking his medications. He ate all of breakfast. He seems to be in better spirits. Does not talk much still, but says some things and responds to all questions. He does not voice any concerns. He denies fever, chills, chest pain, SOB, or N/V. - Constitutional Vitals: Temp Pulse Resp BP Pulse Ox 97.9 F 92 18 107/70 96 11/28/17 20:00 11/28/17 20:00 11/28/17 20:00 11/28/17 20:00 11/28/17 20:00 General appearance: Present: cachectic, A&O X 3, pleasant, no acute distress, answers questions appropriately - Respiratory Respiratory exam: Present: CTAB. Absent: accessory muscle use, rales, rhonchi, wheezes Additional comments: Normal WOB - Cardiovascular Cardiovascular exam: Present: RRR, +S1, +S2. Absent: diastolic murmur, gallop, rubs, systolic murmur Additional comments: Trace BLE edema - GI/Abdominal GI/Abdominal exam: Present: normal bowel sounds, soft. Absent: distended, hepatomegaly, mass, splenomegaly, tenderness - Psychiatric Psychiatric exam: Present: normal affect, normal mood. Absent: anxious, depressed - Skin Skin exam: Present: dry, warm. Absent: cyanosis, rash Additional comments: Left foot with bandaging, no drainage or TTP. Internal Medicine: Result - Labs CBC & Chem 7: 11/28/17 01:59 11/28/17 01:59 Labs: Short CBC 11/28/17 Range/Units 01:59 WBC 14.3 H (4.3-11.1) K/mcL Hgb 8.2 L (12.9-16.9) g/dL Hct 26.3 L (37.5-50.1) % Plt Count 185 (140-400) K/mcL Neutrophils # 12.0 H (1.6-8.9) K/mcL BMP 11/28/17 01:59 Sodium 145 Potassium 2.9 L Chloride 112 H Carbon Dioxide 28 BUN 51 H Creatinine 0.93 Glucose 173 H Calcium 8.1 L - ABG Interpretation ABG results: ABG ABG pH 7.46 pH Units (7.32-7.45) H 11/26/17 15:31 ABG pCO2 42 mmHg (35-45) 11/26/17 15:31 ABG pO2 88 mmHg (85-104) 11/26/17 15:31 ABG O2 Saturation 97 % (95-98) 11/26/17 15:31 PT/INR, D-dimer PT 20.2 Seconds (9.4-12.1) H 11/26/17 16:23 Consult Discharge Plan - Plan Referrals: NONE,PCP [Primary Care Provider] - Saskia Joseph [Family Provider] -
[2017-11-29 03:44] LABS: Basophils % 0.2 %; Eosinophils % 0.2 %; Hemoglobin 8.1 g/dL (12.9-16.9); Immature Granulocytes % 1.1 % (0-4); Immature Platelets 4.7 % (1.1-6.1); Lymphocytes # 1.3 K/mcL (0.6-4.6); Lymphocytes % 9.3 %; Mean Corpuscular HGB Conc 32.4 g/dL (31.6-35.5); Mean Corpuscular Volume 86.5 fL (83.0-100.0); Mean Platelet Volume 11.8 fL (9.4-12.4); Monocytes # 1.1 K/mcL (0.0-1.3); Neutrophils # 11.2 K/mcL (1.6-8.9); Platelet Count 193 K/mcL (140-400); Red Blood Count 2.89 M/mcL (4.19-5.50); Red Cell Distribution Width 15.9 % (11.5-14.5); Segmented Neutrophils % 81.2 %
[2017-11-29 03:47] LABS: BUN/Creatinine Ratio 58 (6-26); Blood Urea Nitrogen 42 mg/dL (8-23); Calcium 7.9 mg/dL (8.6-10.3); Carbon Dioxide 27 mEq/L (23-29); Chloride 116 mEq/L (98-107); Glucose 139 mg/dL (70-105); Osmolality,Calculated 319 (280-300); Potassium 3.5 mEq/L (3.5-5.1); Sodium 148 mEq/L (136-145); eGFR For African Americans > 60 (> 60); eGFR For Non-African Americans > 60 (> 60)
[2017-11-29] MEDS: *HR* Enoxaparin 40 MG/0.4 ML SYRINGE SQ SCH (05:49)
[2017-11-29] MEDS: Insulin LISPRO 300 UNITS/3 ML VIAL SQ SCH ×3 (09:11→16:41)
--- NOTE | 2017-11-29 09:31 | Palliative Progress Note ---
Date of Encounter: 11/29/17 Time of Encounter: 09:00 - Assessment and plan (1) Altered mental status Current Visit: No Status: Acute Assessment and plan: Patient diagnosed with Dementia. Confused to time, but oriented to place and name. Continue Risperdal. Qualifiers: Altered mental status type: disorientation Qualified Code(s): R41.0 - Disorientation, unspecified (2) Pneumonia Current Visit: No Status: Suspected Assessment and plan: Hospitalist managing pneumonia. WBC count improving. VSS. Continue Levaquin. Qualifiers: Pneumonia type: due to unspecified organism Laterality: right Lung location: lower lobe of lung Qualified Code(s): J18.1 - Lobar pneumonia, unspecified organism (3) Weakness Current Visit: Yes Status: Acute Assessment and plan: Weakness present. Continue to provide assistance with ADLs. (4) Goals of care, counseling/discussion Current Visit: Yes Status: Acute Assessment and plan: Working towards discharge planning. Spoke with Dr. Shi, patient medically cleared for discharge today. Spoke with daughter Magalie and wishes to plan for discharge tomorrow afternoon. Hospice to deliver DME. Will order Rx for discharge, including: Megace, Risperdal, Senna, Roxinal, and Ativan. Spoke with Nurse Woods to have medications locked up after pharmacy fills until patient is discharged. (5) Hypertension Current Visit: No Status: Chronic Qualifiers: Hypertension type: essential hypertension Qualified Code(s): I10 - Essential (primary) hypertension (6) COPD (chronic obstructive pulmonary disease) Current Visit: No Status: Chronic Qualifiers: COPD type: emphysema Emphysema type: other Qualified Code(s): J43.8 - Other emphysema - Time Spent With Patient Total time spent is greater than 50% in coordination of care (as documented) at patient's floor/unit and/or counseling patient: - Subjective Interval history: Patient laying in bed on arrival. Alert to place and name. No complaints at this time. Denies pain, anxiety, nausea, or dyspnea. Informed patient arranging discharge home, patient appeared pleased. - Constitutional Vitals: Abnormal lab results WBC 13.8 K/mcL (4.3-11.1) H 11/29/17 02:48 RBC 2.89 M/mcL (4.19-5.50) L 11/29/17 02:48 Hgb 8.1 g/dL (12.9-16.9) L 11/29/17 02:48 Hct 25.0 % (37.5-50.1) L 11/29/17 02:48 RDW 15.9 % (11.5-14.5) H 11/29/17 02:48 Neutrophils # 11.2 K/mcL (1.6-8.9) H 11/29/17 02:48 PT 20.2 Seconds (9.4-12.1) H 11/26/17 16:23 ABG pH 7.46 pH Units (7.32-7.45) H 11/26/17 15:31 ABG HCO3 30 mEq/L (21-27) H 11/26/17 15:31 ABG Total CO2 31 mEq/L (20-26) H 11/26/17 15:31 ABG Base Excess 5 mEq/L (-2 to 3) H 11/26/17 15:31 Sodium 148 mEq/L (136-145) H 11/29/17 02:48 Chloride 116 mEq/L (98-107) H 11/29/17 02:48 BUN 42 mg/dL (8-23) H 11/29/17 02:48 BUN/Creatinine Ratio 58 (6-26) H 11/29/17 02:48 Glucose 139 mg/dL (70-105) H 11/29/17 02:48 POC Glucose 126 (58-89) H 11/29/17 06:35 Calculated Osmolality 319 (280-300) H 11/29/17 02:48 Calcium 7.9 mg/dL (8.6-10.3) L 11/29/17 02:48 Phosphorus 2.4 mg/dL (2.7-4.5) L 11/28/17 01:59 AST 7 Units/L (13-39) L 11/27/17 03:38 ALT 4 Units/L (7-52) L 11/27/17 03:38 Troponin I 0.08 ng/mL (< 0.04) H* 11/26/17 16:23 Serum Total Protein 5.3 g/dL (6.4-8.9) L 11/27/17 03:38 Albumin 2.3 g/dL (3.5-5.7) L 11/27/17 03:38 Albumin/Globulin Ratio 0.8 (1.1-2.2) L 11/27/17 03:38 Lipase < 3 Units/L (11-82) L 11/26/17 16:23 Urine Color Makayla (Yellow) A 11/26/17 15:05 Urine Ketones Trace mg/dL (Negative) H 11/26/17 15:05 Urine Nitrite Positive (Negative) A 11/26/17 15:05 Urine Bilirubin Small (Negative) H 11/26/17 15:05 Ur Leukocyte Esterase Small (Negative) H 11/26/17 15:05 Ur Squamous Epith Cells Moderate per lpf (None-Few) H 11/26/17 15:05 Ur Culture Indicated? YES (NO) A 11/26/17 15:05 - Head Head exam: Present: normal inspection - Eye Eye exam: Present: normal appearance - ENT ENT exam: Present: mucous membranes moist - Neck Neck exam: Present: full ROM, normal inspection - Respiratory Respiratory exam: Present: CTAB - Cardiovascular Cardiovascular exam: Present: +S1, +S2 - Extremities Exam Extremities exam: Present: pedal edema (more to patient's left leg, wound covered with dressing.). Absent: calf tenderness - Neurological Exam Neurological exam: Present: alert - Psychiatric Psychiatric exam: Present: normal affect, normal mood - Skin Skin exam: Present: warm Palliative Quality Palliative Quality: Screen for Code Status: Yes (DNRCC - Comfort Care), Screen for Goals of Care: Yes, Screen for Pain: Yes, If Pain Regimen Started, Initiate Bowel Regimen: Yes, Screen for Nausea/Vomitting: Yes Code Status: 11/26/17 22:36 Resuscitation Status: Active [RES] Routine Comment: Resuscitation Status: DNR-Comfort Care - Labs CBC & Chem 7: 11/29/17 02:48 11/29/17 02:48 Labs: Laboratory Results - last 24 hr 11/28/17 11/28/17 11/28/17 06:38 10:05 16:34 WBC RBC Hgb Hct MCV MCH MCHC RDW Plt Count MPV Immature Gran % Seg Neutrophils % Lymphocytes % Monocytes % Eosinophils % Basophils % Neutrophils # Lymphocytes # Monocytes # Eosinophils # Basophils # Immature Plt Fraction Sodium Potassium Chloride Carbon Dioxide BUN Creatinine Est GFR ( Amer) Est GFR (Non-Af Amer) BUN/Creatinine Ratio Glucose POC Glucose 143 H 173 H 219 H Calculated Osmolality Calcium 11/28/17 11/29/17 11/29/17 19:38 02:48 02:48 WBC 13.8 H RBC 2.89 L Hgb 8.1 L Hct 25.0 L MCV 86.5 MCH 28.0 MCHC 32.4 RDW 15.9 H Plt Count 193 MPV 11.8 Immature Gran % 1.1 Seg Neutrophils % 81.2 Lymphocytes % 9.3 Monocytes % 8.0 Eosinophils % 0.2 Basophils % 0.2 Neutrophils # 11.2 H Lymphocytes # 1.3 Monocytes # 1.1 Eosinophils # 0.0 Basophils # 0.0 Immature Plt Fraction 4.7 Sodium 148 H Potassium 3.5 Chloride 116 H Carbon Dioxide 27 BUN 42 H Creatinine 0.73 Est GFR ( Amer) > 60 Est GFR (Non-Af Amer) > 60 BUN/Creatinine Ratio 58 H Glucose 139 H POC Glucose 161 H Calculated Osmolality 319 H Calcium 7.9 L 11/29/17 06:35 WBC RBC Hgb Hct MCV MCH MCHC RDW Plt Count MPV Immature Gran % Seg Neutrophils % Lymphocytes % Monocytes % Eosinophils % Basophils % Neutrophils # Lymphocytes # Monocytes # Eosinophils # Basophils # Immature Plt Fraction Sodium Potassium Chloride Carbon Dioxide BUN Creatinine Est GFR ( Amer) Est GFR (Non-Af Amer) BUN/Creatinine Ratio Glucose POC Glucose 126 H Calculated Osmolality Calcium - ABG Interpretation ABG results: ABG ABG pH 7.46 pH Units (7.32-7.45) H 11/26/17 15:31 ABG pCO2 42 mmHg (35-45) 11/26/17 15:31 ABG pO2 88 mmHg (85-104) 11/26/17 15:31 ABG O2 Saturation 97 % (95-98) 11/26/17 15:31 PT/INR, D-dimer PT 20.2 Seconds (9.4-12.1) H 11/26/17 16:23 Consult Discharge Plan - Plan Referrals: NONE,PCP [Primary Care Provider] - Saskia Joseph [Family Provider] -
[2017-11-29] MEDS: Zinc Sulfate 220 MG CAPSULE PO SCH (09:35)
[2017-11-29] MEDS: Ascorbic Acid 500 MG TABLET PO SCH ×2 (09:35→20:52)
[2017-11-29] MEDS: Megestrol Acetate 400 MG/10 ML UDC PO SCH (09:35)
[2017-11-29] MEDS: levoFLOXacin 750 MG TABLET PO SCH (09:35)
[2017-11-29] MEDS: Sennosides/Docusate Sodium TABLET PO SCH ×2 (09:35→20:51)
[2017-11-29] MEDS: Multivit/Ca/Min/Fe/FA 1 TAB TABLET PO SCH (09:35)
[2017-11-29] MEDS: risperiDONE 0.25 MG TABLET PO SCH (20:52)
--- NOTE | 2017-11-29 21:34 | Internal Med Progress Note ---
Date of Encounter: 11/29/17 Time of Encounter: 21:33 - Assessment and plan (1) Sepsis Current Visit: Yes Status: Resolved Assessment and plan: Improving. WBC decreasing. HR now normal. Continue levaquin 750 mg PO QD. Monitor vitals closely. Obtain CBC in AM. Qualifiers: Sepsis type: sepsis due to unspecified organism Qualified Code(s): A41.9 - Sepsis, unspecified organism (2) Pneumonia Current Visit: Yes Status: Acute Assessment and plan: CXR with possible consolidation at right lung base. Likely source of sepsis. Respiratory status stable. Start PO levaquin as per above. Qualifiers: Pneumonia type: due to unspecified organism Laterality: unspecified laterality Lung location: unspecified part of lung Qualified Code(s): J18.9 - Pneumonia, unspecified organism (3) Osteomyelitis Current Visit: Yes Status: Chronic Assessment and plan: Previous hospitalization for this. Podiatry states that no osteomyelitis at this time and no need for wound vac. Will continue routine wound care. Qualifiers: Osteomyelitis type: unspecified type Osteomyelitis location: ankle Laterality: left Qualified Code(s): M86.9 - Osteomyelitis, unspecified (4) Protein calorie malnutrition Current Visit: Yes Status: Chronic Assessment and plan: Eating but not signficantly. Continue to encourage PO intake daily. Nutrition consulted; appreciate input. Palliative care consulted; appreciate input. Plan for home hospice. He will likely due better in regards to this at home with supervision and encouragement of daughter. He is medically cleared for discharge home with home health, but home hospice company has not prepared home and delivered DME. Likely discharge tomorrow AM. Qualifiers: Protein-calorie malnutrition severity: unspecified severity Qualified Code( s): E46 - Unspecified protein-calorie malnutrition (5) Dementia Current Visit: Yes Status: Chronic Assessment and plan: Palliative care consult as per above. Continue home medications. Qualifiers: Dementia type: Alzheimer's disease Alzheimer's disease onset: unspecified onset Dementia behavioral disturbance: without behavioral disturbance Qualified Code(s): G30.9 - Alzheimer's disease, unspecified; F02.80 - Dementia in other diseases classified elsewhere without behavioral disturbance; F02.80 - Dementia in other diseases classified elsewhere without behavioral disturbance; F02.80 - Dementia in other diseases classified elsewhere without behavioral disturbance (6) Acute encephalopathy Current Visit: Yes Status: Resolved Assessment and plan: Was likely multifactorial. Resolved now. (7) Hypokalemia Current Visit: Yes Status: Acute Assessment and plan: Resolved. K = 3.5. Recheck BMP in AM. (8) Acute kidney injury Current Visit: Yes Status: Resolved Assessment and plan: Resolved. Recheck BMP in AM. (9) Diabetes Current Visit: Yes Status: Chronic Assessment and plan: Hyperglycemia continues to improve. Continue accuchecks and SSI, and monitor closely. 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 insulin use: without halfway use Diabetes mellitus complication status: with skin complications Diabetes mellitus complication detail: with foot ulcer Qualified Code(s): E11.621 - Type 2 diabetes mellitus with foot ulcer; L97.509 - Non-pressure chronic ulcer of other part of unspecified foot with unspecified severity; L97.509 - Non-pressure chronic ulcer of other part of unspecified foot with unspecified severity; L97.509 - Non-pressure chronic ulcer of other part of unspecified foot with unspecified severity; L97.509 - Non-pressure chronic ulcer of other part of unspecified foot with unspecified severity (10) DVT prophylaxis Current Visit: Yes Status: Acute Assessment and plan: Continue SC lovenox. - Time Spent With Patient less than 15 minutes - Subjective Interval history: Patient had no acute events overnight. Nursing staff reports that he remains cooperative this AM. He is taking his medications. He is eating some of his meals. He continues to be in good spirits now. Does not talk much still, but says some things and responds to all questions. He does not voice any concerns. He denies fever, chills, chest pain, SOB, or N/V. - Constitutional Vitals: Temp Pulse Resp BP Pulse Ox 98.7 F 100 17 120/76 93 11/29/17 21:00 11/29/17 21:00 11/29/17 21:00 11/29/17 21:00 11/29/17 21:00 General appearance: Present: cachectic, A&O X 3, pleasant, no acute distress, answers questions appropriately - Respiratory Respiratory exam: Present: CTAB. Absent: accessory muscle use, rales, rhonchi, wheezes Additional comments: Normal WOB - Cardiovascular Cardiovascular exam: Present: RRR, +S1, +S2. Absent: diastolic murmur, gallop, rubs, systolic murmur Additional comments: Trace BLE edema - GI/Abdominal GI/Abdominal exam: Present: normal bowel sounds, soft. Absent: distended, hepatomegaly, mass, splenomegaly, tenderness - Psychiatric Psychiatric exam: Present: normal affect, normal mood. Absent: anxious, depressed - Skin Skin exam: Present: dry, intact, warm. Absent: cyanosis, rash Additional comments: Left foot with bandaging, no drainage or TTP Internal Medicine: Result - Labs CBC & Chem 7: 11/29/17 02:48 11/29/17 02:48 Labs: Short CBC 11/29/17 Range/Units 02:48 WBC 13.8 H (4.3-11.1) K/mcL Hgb 8.1 L (12.9-16.9) g/dL Hct 25.0 L (37.5-50.1) % Plt Count 193 (140-400) K/mcL Neutrophils # 11.2 H (1.6-8.9) K/mcL BMP 11/29/17 02:48 Sodium 148 H Potassium 3.5 Chloride 116 H Carbon Dioxide 27 BUN 42 H Creatinine 0.73 Glucose 139 H Calcium 7.9 L - ABG Interpretation ABG results: ABG ABG pH 7.46 pH Units (7.32-7.45) H 11/26/17 15:31 ABG pCO2 42 mmHg (35-45) 11/26/17 15:31 ABG pO2 88 mmHg (85-104) 11/26/17 15:31 ABG O2 Saturation 97 % (95-98) 11/26/17 15:31 PT/INR, D-dimer PT 20.2 Seconds (9.4-12.1) H 11/26/17 16:23 Consult Discharge Plan - Plan Referrals: NONE,PCP [Primary Care Provider] - Saskia Joseph [Family Provider] - Prescriptions: LORazepam Oral Conc [Ativan Oral Conc] 0.5 - 1 mg PO Q4H PRN 4 Days #15 mls PRN Reason: anxiety/agitation Megestrol Acetate [Megace] 400 mg PO QAM 4 Days #40 mls MORPHINE SUL Oral CONC [Roxanol Oral Conc] 2.5 - 5 mg SL Q4H PRN 4 Days #15 ml PRN Reason: pain, dyspnea RisperiDONE [Risperdal] 0.5 mg PO QPM #4 tablet Sennosides/Docusate Sodium [Senna-S Tablet] 1 each PO BID #8 tablet
[2017-11-30 05:28] LABS: BUN/Creatinine Ratio 55 (6-26); Blood Urea Nitrogen 34 mg/dL (8-23); Calcium 7.7 mg/dL (8.6-10.3); Carbon Dioxide 28 mEq/L (23-29); Chloride 113 mEq/L (98-107); Glucose 113 mg/dL (70-105); Osmolality,Calculated 308 (280-300); Potassium 3.3 mEq/L (3.5-5.1); Sodium 145 mEq/L (136-145); eGFR For African Americans > 60 (> 60); eGFR For Non-African Americans > 60 (> 60)
[2017-11-30 05:34] LABS: Basophils % 0.2 %; Eosinophils % 0.2 %; Hematocrit 24.1 % (37.5-50.1); Hemoglobin 7.7 g/dL (12.9-16.9); Lymphocytes # 1.4 K/mcL (0.6-4.6); Lymphocytes % 11.7 %; Mean Corpuscular Hemoglobin 27.5 pg (28.0-33.3); Mean Corpuscular Volume 86.1 fL (83.0-100.0); Mean Platelet Volume 11.4 fL (9.4-12.4); Monocytes # 0.8 K/mcL (0.0-1.3); Monocytes % 6.7 %; Neutrophils # 9.6 K/mcL (1.6-8.9); Platelet Count 218 K/mcL (140-400); Red Cell Distribution Width 15.9 % (11.5-14.5); Segmented Neutrophils % 80.2 %
[2017-11-30] MEDS: *HR* Enoxaparin 40 MG/0.4 ML SYRINGE SQ SCH (06:16)
[2017-11-30] MEDS: Insulin LISPRO 300 UNITS/3 ML VIAL SQ SCH ×2 (10:43→14:01)
[2017-11-30] MEDS: Megestrol Acetate 400 MG/10 ML UDC PO SCH (11:22)
[2017-11-30] MEDS: Ascorbic Acid 500 MG TABLET PO SCH (11:23)
[2017-11-30] MEDS: levoFLOXacin 750 MG TABLET PO SCH (11:23)
[2017-11-30] MEDS: Zinc Sulfate 220 MG CAPSULE PO SCH (11:23)
[2017-11-30] MEDS: Multivit/Ca/Min/Fe/FA 1 TAB TABLET PO SCH (11:23)
[2017-11-30] MEDS: Sennosides/Docusate Sodium TABLET PO SCH (11:26)
[2017-11-30 14:57] VITALS: BP 115/67
--- NOTE | 2017-11-30 17:33 | Discharge Summary ---
- NOTES TO OUTPATIENT PROVIDER Notes to Outpatient Provider: Home hospice. Follow up with steamfitter Dr. Cortes in 1 week after discharge. Left foot ulcer wound care recommendations : daily wound care with cleansing surgical wound daily with mild soap and water , pat dry, apply adaptic, 4x4 dry sterile gauze and medipore tape. Keep left leg elevated and surgical wound away from pressure. Date of Encounter: 11/30/17 Time of Encounter: 17:32 - Discharge Diagnosis (1) Sepsis Priority: Primary Status: Resolved Qualifiers: Sepsis type: sepsis due to unspecified organism Qualified Code(s): A41.9 - Sepsis, unspecified organism (2) Pneumonia Priority: Secondary Status: Acute Qualifiers: Pneumonia type: due to unspecified organism Laterality: unspecified laterality Lung location: unspecified part of lung Qualified Code(s): J18.9 - Pneumonia, unspecified organism (3) Osteomyelitis Priority: Secondary Status: Resolved Qualifiers: Osteomyelitis type: unspecified type Osteomyelitis location: ankle Laterality: left Qualified Code(s): M86.9 - Osteomyelitis, unspecified (4) Protein calorie malnutrition Priority: Secondary Status: Chronic Qualifiers: Protein-calorie malnutrition severity: unspecified severity Qualified Code( s): E46 - Unspecified protein-calorie malnutrition (5) Dementia Priority: Secondary Status: Chronic Qualifiers: Dementia type: Alzheimer's disease Alzheimer's disease onset: unspecified onset Dementia behavioral disturbance: without behavioral disturbance Qualified Code(s): G30.9 - Alzheimer's disease, unspecified; F02.80 - Dementia in other diseases classified elsewhere without behavioral disturbance; F02.80 - Dementia in other diseases classified elsewhere without behavioral disturbance; F02.80 - Dementia in other diseases classified elsewhere without behavioral disturbance (6) Acute encephalopathy Priority: Secondary Status: Resolved (7) Hypokalemia Priority: Secondary Status: Acute (8) Acute kidney injury Priority: Secondary Status: Resolved (9) Diabetes Priority: Secondary Status: Chronic 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: without alf use Diabetes mellitus complication status: with skin complications Diabetes mellitus complication detail: with foot ulcer Qualified Code(s): E11.621 - Type 2 diabetes mellitus with foot ulcer; L97.509 - Non-pressure chronic ulcer of other part of unspecified foot with unspecified severity; L97.509 - Non-pressure chronic ulcer of other part of unspecified foot with unspecified severity; L97.509 - Non-pressure chronic ulcer of other part of unspecified foot with unspecified severity; L97.509 - Non-pressure chronic ulcer of other part of unspecified foot with unspecified severity (10) DVT prophylaxis Priority: Secondary Status: Acute Hospital course: Mr. Crow is a 77 year old male admitted for sepsis, pneumonia, and acute encephalopathy. He was admitted to general medical floor on telemetry. There was some concern for recurrent osteomyelitis of left heel, as he was last hospitalized for this infection. He had been following up with his steamfitter Dr. Cortes, so I reconsulted him during this admission. He determined that there was no recurrent of osteomyelitis. Patient was initially started on IV vancomycin and IV zosyn. His acute encephalopathy greatly improved on day 2. He started waking up, conversing, and taking some PO. Respiratory status remained stable throughout hospitalization, with him remaining on his home supplemental oxygen 2-3 L by [place] PRN. He has severe protein calorie malnutrition , which worsened since discharge from last hospitalization to [facility]. Daughter wanted to have patient come home with her with home hospice. Palliative care was consulted, and made recommendations and helped to facilitate home hospice discharge. With continued daily improvement, antibiotics were deescalated to levaquin 750 mg PO QD. He will complete 2 more days of the levaquin at home. He had some MARK during this hospitalization that resolved with IV hydration initially. Patient has met maximum benefit of this hospitalization and will be discharged to daughter's home with home hospice. Discharge discussed with: patient, nurse - Time Spent with Patient Total time spent providing and/or coordinating discharge services: Greater than 30 minutes - Discharge Medications Prescriptions: levoFLOXacin [Levaquin] 750 mg PO DAILY 2 Days #2 tablet LORazepam Oral Conc [Ativan Oral Conc] 0.5 - 1 mg PO Q4H PRN 4 Days #15 mls PRN Reason: anxiety/agitation Megestrol Acetate [Megace] 400 mg PO QAM 4 Days #40 mls MORPHINE SUL Oral CONC [Roxanol Oral Conc] 2.5 - 5 mg SL Q4H PRN 4 Days #15 ml PRN Reason: pain, dyspnea RisperiDONE [Risperdal] 0.5 mg PO QPM #4 tablet Sennosides/Docusate Sodium [Senna-S Tablet] 1 each PO BID #8 tablet Home Medications: Ascorbic Acid [Vitamin C] 500 mg PO BID tablet 11/09/17 [Rx] DiphenhydraMINE [Benadryl] 25 mg PO Q6H PRN 11/26/17 [History] Donepezil HCl [Aricept] 5 mg PO HS 11/26/17 [History] Lisinopril [Zestril] 5 mg PO DAILY 11/26/17 [History] Megestrol Acetate [Megace] 400 mg PO QAM 11/26/17 [History] Multivit/Ca/Min/Fe/FA [Thera M Plus] 1 tab PO QAM 11/26/17 [History] Ondansetron HCl [Zofran] 4 mg PO Q4H PRN 11/26/17 [History] Oxygen 2 - 3 l NS AD 11/26/17 [History] RisperiDONE [Risperdal] 0.5 mg PO HS 11/26/17 [History] Zinc Sulfate 220 mg PO QAM 11/26/17 [History] LORazepam Oral Conc [Ativan Oral Conc] 0.5 - 1 mg PO Q4H PRN 4 Days #15 mls [Rx] MORPHINE SUL Oral CONC [Roxanol Oral Conc] 2.5 - 5 mg SL Q4H PRN 4 Days #15 ml 11/29/17 [Rx] Megestrol Acetate [Megace] 400 mg PO QAM 4 Days #40 mls 11/29/17 [Rx] RisperiDONE [Risperdal] 0.5 mg PO QPM #4 tablet 11/29/17 [Rx] Sennosides/Docusate Sodium [Senna-S Tablet] 1 each PO BID #8 tablet 11/29/17 [Rx ] Sennosides/Docusate Sodium [Senna Plus] 1 each PO BID tablet 11/30/17 [Rx] levoFLOXacin [Levaquin] 750 mg PO DAILY 2 Days #2 tablet 11/30/17 [Rx] Allergies/Adverse Reactions: 3 Allergy/AdvReac Type Severity Reaction Status Date / Time No Known Allergies Allergy Verified 10/31/17 16:58 Date of admission: 11/26/17 19:14 Primary care physician: PCP NONE Consults: 11/27/17 08:35 Consult to [facility] [CONS] Routine Reason for SW Consult: Patient from Signature 11/27/17 14:04 Consult to Podiatry [CONS] Routine Consulting Provider: [facility] Reason for Consult: LLE Osteomyelitis, Wound Vac Management Time Notified: 12:00 Call Completed: Yes 11/27/17 14:20 Consult to Palliative Care [CONS] Routine Comment: Consulting Provider: Palliative Care [place] Reason for Consult: FTT; Poor prognosis Time Notified: 14:24 Call Completed: Yes 11/27/17 21:39 Consult to Nutrition [CONS] Routine Comment: Please evaluate and make nutritional reccs. Consulting Provider: NUTRITION Reason for Dietary Consult: PO Supplementation Discharging clinician: Robert Shi Anticipated date of discharge: 11/30/17 - Constitutional Vitals: Temp Pulse Resp BP Pulse Ox 98.1 F 80 15 115/67 95 11/30/17 14:54 11/30/17 14:54 11/30/17 14:54 11/30/17 14:54 11/30/17 14:54 General appearance: Present: cachectic, A&O X 3, pleasant, no acute distress, answers questions appropriately - Respiratory Respiratory exam: Present: CTAB. Absent: accessory muscle use, rales, rhonchi, wheezes Additional comments: Normal WOB - Cardiovascular Cardiovascular exam: Present: RRR, +S1, +S2. Absent: diastolic murmur, gallop, rubs, systolic murmur Additional comments: Trace BLE edema - GI/Abdominal GI/Abdominal exam: Present: normal bowel sounds, soft. Absent: distended, hepatomegaly, mass, splenomegaly, tenderness - Psychiatric Psychiatric exam: Present: normal affect, normal mood. Absent: anxious, depressed - Skin Skin exam: Present: dry, warm. Absent: cyanosis, rash Additional comments: Left foot with bandaging, no drainage or TTP - Patient Status Disposition: Hospice - Home Condition: Fair Overall status at discharge: patient is progressing back to baseline - Discharge Instructions Instructions: Lorazepam (By mouth), Laxative, Stimulant (By mouth), Morphine, Rapid Release (By mouth), Megestrol Acetate (By mouth), Risperidone (By mouth), Urinary Tract Infection in Men (DC), Diabetes Mellitus Type 2 in Adults (DC), Chronic Obstructive Pulmonary Disease (DC), Sepsis (DC), Chronic Hypertension ( DC), Pneumonia (DC) Follow Up With: NONE,PCP [Primary Care Provider] - Saskia Joseph [Family Provider] - Additional Instructions: Home hospice. Follow up with steamfitter Dr. Cortes in 1 week after discharge. Left foot ulcer wound care recommendations: daily wound care with cleansing surgical wound daily with mild soap and water, pat dry, apply adaptic , 4x4 dry sterile gauze and medipore tape. Keep left leg elevated and surgical wound away from pressure. - Diet and Activity Activity: as per physical therapy Diet: regular diet (with Ensure supplementation with each meal)
--- NOTE | 2017-11-30 17:35 | Physician Discharge Referral ---
Home Health/Hosp Referral Info Transfer to: Hospice Provider in Charge Post Discharge: Billing Assistant - Diagnosis (1) Sepsis Priority: Primary Status: Resolved (2) Pneumonia Priority: Secondary Status: Acute (3) Osteomyelitis Priority: Secondary Status: Resolved (4) Protein calorie malnutrition Priority: Secondary Status: Chronic (5) Dementia Priority: Secondary Status: Chronic (6) Acute encephalopathy Priority: Secondary Status: Resolved (7) Hypokalemia Priority: Secondary Status: Acute (8) Acute kidney injury Priority: Secondary Status: Resolved (9) Diabetes Priority: Secondary Status: Chronic (10) DVT prophylaxis Priority: Secondary Status: Acute - Respiratory Orders Oxygen / L per min (2-3 L by [place] PRN SOB/Comfort/Hypoxemia) Smoking Cessation: Smoking cessation has been advised. For more information, call the [employer] Quit Line at 7-054-YWIU-NOW. - Dressing/Wound Care Site: Left Heel Wound, Multiple Pressure ulcers on back and bottom. Type of Dressing/Treatments w/Frequency: Follow wound care orders from hospitalization. - Diet/Nutrition Diet/Nutrition Orders: Regular Diet/Nutrition: List: Ensure supplementation with each meal. - Activity Activity: List: Per physical therapy - Services Needed Following services are medically necessary services: Nursing, Physical Therapy, Occupational Therapy - Transfer Medications Prescriptions: levoFLOXacin [Levaquin] 750 mg PO DAILY 2 Days #2 tablet LORazepam Oral Conc [Ativan Oral Conc] 0.5 - 1 mg PO Q4H PRN 4 Days #15 mls PRN Reason: anxiety/agitation Megestrol Acetate [Megace] 400 mg PO QAM 4 Days #40 mls MORPHINE SUL Oral CONC [Roxanol Oral Conc] 2.5 - 5 mg SL Q4H PRN 4 Days #15 ml PRN Reason: pain, dyspnea RisperiDONE [Risperdal] 0.5 mg PO QPM #4 tablet Sennosides/Docusate Sodium [Senna-S Tablet] 1 each PO BID #8 tablet Home Medications: Ascorbic Acid [Vitamin C] 500 mg PO BID tablet 11/09/17 [Rx] DiphenhydraMINE [Benadryl] 25 mg PO Q6H PRN 11/26/17 [History] Donepezil HCl [Aricept] 5 mg PO HS 11/26/17 [History] Lisinopril [Zestril] 5 mg PO DAILY 03/13/18 [History] Megestrol Acetate [Megace] 400 mg PO QAM 11/26/17 [History] Multivit/Ca/Min/Fe/FA [Thera M Plus] 1 tab PO QAM 11/26/17 [History] Ondansetron HCl [Zofran] 4 mg PO Q4H PRN 11/26/17 [History] Oxygen 2 - 3 l NS AD 11/26/17 [History] RisperiDONE [Risperdal] 0.5 mg PO HS 11/26/17 [History] Zinc Sulfate 220 mg PO QAM 11/26/17 [History] LORazepam Oral Conc [Ativan Oral Conc] 0.5 - 1 mg PO Q4H PRN 4 Days #15 mls [Rx] MORPHINE SUL Oral CONC [Roxanol Oral Conc] 2.5 - 5 mg SL Q4H PRN 4 Days #15 ml 11/29/17 [Rx] Megestrol Acetate [Megace] 400 mg PO QAM 4 Days #40 mls 11/29/17 [Rx] RisperiDONE [Risperdal] 0.5 mg PO QPM #4 tablet 11/29/17 [Rx] Sennosides/Docusate Sodium [Senna-S Tablet] 1 each PO BID #8 tablet 11/29/17 [Rx ] Sennosides/Docusate Sodium [Senna Plus] 1 each PO BID tablet 11/30/17 [Rx] levoFLOXacin [Levaquin] 750 mg PO DAILY 2 Days #2 tablet 11/30/17 [Rx] Allergies/Adverse Reactions: 3 Allergy/AdvReac Type Severity Reaction Status Date / Time No Known Allergies Allergy Verified 10/31/17 16:58 Certification: Further, I certify that my clinical findings support that this patient is homebound (i.e. absences from home require considerable and taxing effort and are for medical reasons or buddhism services or infrequently or short duration when for other reasons) because: dementia, osteomyelitis, multiple wounds, protein calorie malnutrition, debility. Homebound Reason: Patient requires assistance of a person or device to safely leave home, Absences from home are contraindicated except to recieve medical care, Leaving home requires considerable and taxing effort due to condition, Altered mental status requiring supervision when leaving home Attestation: My signature below is to certify that this patient is under my care and that I, or nurse practitioner, or a physician's lead dental assistant working with me, has a face-to -face encounter with this patient.
== END 2017-11-30 19:44 | disposition hospice, home (50) | DRG 871 ==
LOC: EMEROO 14:15 → 2NENU 19:14
PROVIDERS: ADMIT Internal Medicine Cardiovascular Disease; ATTEND Family Medicine